=== PATIENT | female | born 1980 | race Caucasian/White ===

== ENCOUNTER 2022-10-21 08:27 | Outpatient (OUT) | payer BC, SELFPAY ==
--- NOTE | 2022-10-21 08:35 | MM_ITS ---
Patient: JESSICA YU Exam Date: 10/21/2022 : 1980 Gender:F Ordering : DR ROME RAZA Admission #: [id number] Family : DR Adkins Omar . Order #: [id number] CLICK HERE TO VIEW EXAM RADIOLOGY REPORT PROCEDURE: MM TOMOSYNTHESIS SCREENING BI COMPARISON: MG MAMM SCREEN 3D SERA CAD, 07/21/2020. MG MAMM SCREEN 3D SERA CAD, 07/29/2021. INDICATIONS: Screening Calculator Name NCI Breast Cancer Risk Assessment Tool 5 Year Breast Cancer Risk 1.40% Lifetime Breast Cancer Risk 17.90% Personal Breast Cancer No Personal Ovarian Cancer No Treatments None Family Cancers Mother with breast cancer at age 54. LOCATION: [facility] BREAST COMPOSITION: Extremely dense, which lowers the sensitivity of mammography. FINDINGS: DIAGNOSTIC CATEGORY 1--NEGATIVE. NO CHANGE FROM COMPARISON ASSESSMENT. Scattered benign-appearing nodules are present. Scattered benign-appearing calcifications are present. Scattered benign-appearing lymph nodes are present. RIGHT BREAST: No significant suspicious finding. LEFT BREAST: No significant suspicious finding. RECOMMENDATIONS: ROUTINE MAMMOGRAM AND CLINICAL EVALUATION IN 12 MONTHS. PLEASE NOTE: A NORMAL MAMMOGRAM DOES NOT EXCLUDE THE POSSIBILITY OF BREAST CANCER. A CLINICALLY SUSPICIOUS PALPABLE LUMP SHOULD BE BIOPSIED. Dictated by: Ron Andrea MD on 10/21/2022 at 09:36 Approved by: Ron Andrea MD on 10/21/2022 at 09:39
== END 2022-10-21 08:28 | disposition home or self-care (01) ==
LOC: MAMMO 08:27
PROVIDERS: PCP Family Medicine; Visit Provider Family Medicine
DX: Z12.31 Encounter for screening mammogram for malignant neoplasm of breast (principal); Z80.3 Family history of malignant neoplasm of breast
CPT/HCPCS: 77063; 77067

== ENCOUNTER 2022-12-13 20:40 | Outpatient (REF) | payer BC, SELFPAY ==
[2022-12-20 10:12] LABS: Age Gdln ACOG Testing Note (.); HPV Aptima Negative (Negative); IGP, Aptima HPV, rfx 16/18,45 Note (.)
== END 2022-12-13 20:41 | disposition home or self-care (01) ==
LOC: LAB 20:40
PROVIDERS: PCP Family Medicine; Visit Provider Obstetrics & Gynecology
DX: Z12.4 Encounter for screening for malignant neoplasm of cervix (principal)
CPT/HCPCS: G0145

== ENCOUNTER 2023-04-26 10:52 | Outpatient (OUT) | payer BC, SELFPAY ==
--- NOTE | 2023-04-26 10:55 | US_ITS ---
The [address] [address] Patient Name: JESSICA YU MRN: [id number] date: 1980 Sex: F Assigned Patient [facility] Current [facility] Accession/Order Number: [id number] Exam Date: 04/26/2023 10:55 Report Date: 04/26/2023 11:49 At the request of: MICHAEL CAO Procedure: US pelvis w/ transvaginal EXAM: US pelvis w/ transvaginal HISTORY: LEFT SIDED PELVIC PAIN COMPARISON: None. TECHNIQUE: Real-time transabdominal and transvaginal imaging of the pelvis. Findings: The uterus is surgically absent. The right ovary is not visualized due to overlying bowel gas. The left ovary measures 6.7 x 5.1 x 5.0 cm. Within the left ovary is a complex cystic lesion measuring 5.3 x 4.4 x 4.1 cm. Blood flow is identified to the left ovary. No adnexal mass or free pelvic fluid. US/US pelvis w/ transvaginal IMPRESSION: 1. Probable hemorrhagic cyst in the left ovary as described above. Consensus guidelines for hemorrhagic cysts: hemorrhagic cysts measuring less than 5cm in a premenopausal woman require no follow-up. Hemorrhagic cysts measuring greater than 5cm in a premenopausal woman should be followed with ultrasound in 6-12 weeks to ensure resolution. Hemorrhagic cysts in post menopausal women of any age should have either short term follow-up with ultrasound in 6-12 weeks or surgical evaluation. Electronically authenticated by: SAIMA JONES Date: 04/26/2023 11:49
== END 2023-04-26 10:53 | disposition home or self-care (01) ==
LOC: NOMS 10:53
PROVIDERS: PCP Family Medicine; Visit Provider Obstetrics & Gynecology
DX: R10.2 Pelvic and perineal pain (principal); N83.202 Unspecified ovarian cyst, left side
CPT/HCPCS: 76830; 76856

== ENCOUNTER 2023-06-07 08:22 | Outpatient (OUT) | payer BC, SELFPAY ==
--- NOTE | 2023-06-07 08:27 | US_ITS ---
The [address] [address] Patient Name: JESSICA YU MRN: [id number] date: 1980 Sex: F Assigned Patient Location: [facility] Current Patient Location: [facility] Accession/Order Number: [id number] Exam Date: 06/07/2023 08:27 Report Date: 06/07/2023 10:26 At the request of: MICHAEL CAO Procedure: US pelvis w/ transvaginal EXAM: Pelvic ultrasound HISTORY: . PELVIC PAIN . COMPARISON: 04/26/2023 TECHNIQUE: Transabdominal and transvaginal scanning was performed FINDINGS: Uterus is absent. Right ovary measures 3.4 x 2.7 x 2.4 cm. Color-flow is noted. Follicles are noted. Left ovary measures 3 x 2.5 x 2.2 cm. Color-flow is noted. Follicles are noted. No masses are noted. No fluid is noted in the cul-de-sac. US/US pelvis w/ transvaginal IMPRESSION: 1 the uterus is absent. 2. Normal-appearing ovaries with no masses. The previously noted cyst involving the left ovary has resolved. Electronically authenticated by: FRANCOIS LOPEZ Date: 06/07/2023 10:26
--- OUTSIDE RECORDS SUMMARY | 2023-06-07 08:27 | XMS_ITS | CCD ---
Author Organization [facility] Care Team Providers Care Negotiator Sales Name Role Phone Yasmin De La Cruz Unavailable BROCK, DR KRISTA Cooper Admitting Unavailable KUNTiffanie, DR KRISTA Cooper Attending Unavailable KUNS, DR KRISTA Cooper Primary Care Unavailable SWISHER, DR FRANCOIS Pearson Consulting Unavailable KUNTiffanie, DR KRISTA Cooper Consulting Unavailable KILEY, DR RODRIGUEZ Admitting Unavailable KILEY, DR RODRIGUEZ Attending Unavailable KUNS, DR KRISTA Cooper Primary Care Unavailable SWISHER, DR FRANCOIS Pearson Consulting Unavailable KILEY, DR RODRIGUEZ Consulting Unavailable KUNS, DR KRISTA Cooper Primary Care Unavailable MISC, DR PRESSLEY Admitting Unavailable MISC, DR PRESSLEY Attending Unavailable MISC, DR PRESSLEY Consulting Unavailable KILEY, DR RODRIGUEZ Admitting Unavailable KILEY, DR RODRIGUEZ Attending Unavailable FURLONG, DR RYAN cMdaniel Primary Care Unavailable SABINA HORNE Consulting Unavailable KILEY, DR RODRIGUEZ Admitting Unavailable KILEY, DR RODRIGUEZ Attending Unavailable FURLOKAREN, DR RYAN Mcdaniel Primary Care Unavailable KILEY, DR RODRIGUEZ Consulting Unavailable KILEY, DR RODRIGUEZ Admitting Unavailable KILEY, DR RODRIGUEZ Attending Unavailable FURLONG, DR RYAN Mcdaniel Primary Care Unavailable KILEY, DR RODRIGUEZ Consulting Unavailable IKLEY, DR RODRIGUEZ Procedure Practitioner Unavailab KAMRYN Aguirre Consulting Unavailable ANTONIO STANLEY Consulting Unavailable Agata James Unavailable Ryan Armijo DO Primary Care Provider [phone] Allergies Allergy Classification Reported Allergen(s) Allergy Type Date of Onset Reaction(s) Facility (3 sources) gabapentin Drug Allergy 2 Other (See Comments) [facility] (1 source) gabapentin Drug Allergy [facility] Repository Medications Current Medications Medication Drug Class(es) Dates Sig (Normalized) Sig (Original) acyclovir 50 mg/ml / hydrocortisone 10 mg/ml topical cream (3 sources) Herpesvirus Nucleoside Analog DNA Polymerase Inhibitor, Corticosteroid, Herpes Simplex Virus Nucleoside Analog DNA Polymerase Inhibitor, Herpes Zoster Virus Nucleoside Analog DNA Polymerase Inhibitor Start: 07-26-2022 End: 05-21-2023 acyclovir-hydroco rtisone (XERESE) 5-1 % cream Apply topically 5 (five) times a day for 5 days. 5 g 1 05/16/2023 05/21/2023 Active End: 05-16-2023 acyclovir-hydrocortisone (XE RESE) 5-1 % cream Xerese 5 %-1 % topical cream 0 05/16/2023 Discontinued (Reorder) cholecalciferol 0.125 mg oral capsule (1 source) Vitamin D Start: 02-25-2022 take 1 capsule by mouth in the morning cholecalciferol, vitamin D3, (VITAMIN D3) 5,000 units capsule Take 1 capsule (5,000 Units total) by mouth in the morning. 100 capsule 3 02/25/2022 Active cyclobenzaprine hydrochloride 10 mg oral tablet (1 source) Muscle Relaxant take 1 tablet by mouth three times daily cyclobenzaprine (FLEXERIL) 10 mg tablet cyclobenzaprine 10 mg tablet TAKE 1 TABLET BY MOUTH THREE TIMES DAILY 0 Active dextromethorphan hydrobromide 1.5 mg/ml / pyrilamine maleate 1.5 mg/ml oral solution (1 source) Uncompetitive H-npyqgy-J-asparta te Receptor Antagonist, Sigma-1 Agonist Start: 04-29-2023 take 10 mL by mouth every eight hours Shirley DM 7.5-7.5 MG/5ML 10 mL Orally every 8 hours for 5 days Apr, Active diclofenac sodium 75 mg delayed release oral tablet (1 source) Nonsteroidal Anti-inflammatory Drug take 1 tablet by mouth twice daily diclofenac (VOLTAREN) 75 mg EC tablet diclofenac sodium 75 mg tablet,delayed release TAKE 1 TABLET BY MOUTH TWICE DAILY 0 Active fluticasone propionate 0.5 mg/ml topical cream (1 source) Corticosteroid fluticasone propionate (CUTIVATE) 0.05 % cream fluticasone propionate 0.05 % topical cream APPLY TO THE AFFECTED AREA(S) on back and chest at NIGHT FOR 1 WEEK 0 Active icosapent ethyl 1000 mg oral capsule (1 source) Start: 07-27-2022 take 2 capsules by mouth at bedtime icosapent ethyL (VASCEPA) 1 gram capsule Take 2 capsules (2 g total) by mouth in the morning and 2 capsules (2 g total) before bedtime. 360 capsule 3 07/27/2022 Active LORazepam 0.5 mg oral tablet (3 sources) Benzodiazepine take 1 tablet by mouth once daily LORazepam (ATIVAN) 0.5 mg tablet lorazepam 0.5 mg tablet TAKE 1 TABLET BY MOUTH DAILY 0 Active methylPREDNISolone 4 mg oral tablet (3 sources) Corticosteroid Start: 09-04-2021 methylPREDNISolone 4 MG as directed Orally for 6 Apr, Active naratriptan 2.5 mg oral tablet (3 sources) Serotonin-1b and Serotonin-1d Receptor Agonist Start: 02-15-2022 naratriptan (AMERGE) 2.5 mg tablet ondansetron 4 mg disintegrating oral tablet (1 source) Serotonin-3 Receptor Antagonist Start: 02-15-2022 ondansetron ODT (ZOFRAN ODT) 4 mg disintegrating tablet rosuvastatin calcium 10 mg oral tablet (3 sources) HMG-CoA Reductase Inhibitor Start: 09-09-2022 rosuvastatin (CRESTOR) 10 mg tablet TAKE 1 TABLET IN THE MORNING 90 tablet 3 09/09/2022 Active Rosuvastatin Ruy cium Active valACYclovir 1000 mg oral tablet (2 sources) Herpesvirus Nucleoside Analog DNA Polymerase Inhibitor, Herpes Simplex Virus Nucleoside Analog DNA Polymerase Inhibitor, Herpes Zoster Virus Nucleoside Analog DNA Polymerase Inhibitor Start: 07-29-2022 take 2 tablets by mouth in the morning, then take 2 tablets by mouth at bedtime valACYclovir (VALTREX) 1000 mg tablet Take 2 tablets (2,000 mg total) by mouth in the morning and 2 tablets (2,000 mg total) before bedtime. 4 tablet 5 07/29/2022 Active valACYclovir (VA LTREX) 1000 mg tablet valacyclovir 1 gram tablet 0 Active Vitamin D (2 sources) Vitamin D Active Completed/Discontinued Medications Medication Drug Class(es) Dates Sig (Normalized) Sig (Original) acetaminophen 300 mg / butalbital 50 mg / caffeine 40 mg oral capsule (2 sources) Barbiturate, Central Nervous System Stimulant, Methylxanthine take 1 capsule by mouth every four hours Fioricet 50-300-40 MG 1 capsule as needed Orally every 4 hrs Not-Taking/PRN Imitrex STATdose System 6 MG/0.5ML (2 sources) Start: 11-19-2013 Imitrex STATdose System 6 MG/0.5ML as directed Subcutaneous 1 time for 1 time Nov, Not-Taking/PRN Start: 11-19-2013 Imitrex STATdo se System 6 MG/0.5ML as directed Subcutaneous 1 time for 1 time Nov, Not-Taking Ketorolac (6 sources) Nonsteroidal Anti-inflammatory Drug, Cyclooxygenase Inhibitor Start: 11-06-2015 Toradol p er 15 mg Oct, 60 mg Start: 11-16-2013 Toradol 60 mg 1 intramuscularly 1 time dose for 1 dose(s) Oct, Not-Taking/PRN Start: 11-16-2013 Toradol 60 mg 1 intramuscularly 1 time dose for 1 dose(s) Oct, Not-Taking Start: 11-16-2013 Toradol per 15 mg Oct, 60 mg Promethazine (6 sources) Phenothiazine Start: 11-06-2015 Phenergan 25mg 25mg as dircted by mouth every 8 hours for nausea Oct, Not-Taking/PRN Start: 11-06-2015 Phenergan 25mg 25mg as dircted by mouth every 8 hours for nausea Oct, Not-Taking Start: 11-06-2015 PROMETHAZINE ( Phenergan) up to 50 mg Oct, 25 mg Start: 11-16-2013 PROMETHAZINE ( Phenergan) up to 50 mg Oct, 25 mg topiramate (2 sources) Topamax Not-Taki ng/PRN Topamax Not-Taki ng varenicline 1 mg oral tablet (2 sources) Partial Cholinergic Nicotinic Agonist take 1 tablet by mouth every twelve hours Chantix 1 MG 1 tablet Orally Twice a day Not-Taking/PRN Problems Active Problems Problem Classification Problem Date Documented Da te Episodic/Chronic Anxiety disorders (2 sources) Anxiety disorder, unspecified; Translations: [Anxiety] Onset: 11-04-2021 02-25-2022 Chronic Disorders of lipid metabolism (2 sources) Mixed hyperlipidemia; Translations: [Mixed hyperlipidemia] Onset: 06-13-2021 02-25-2022 Chronic Headache; including migraine (3 sources) Migraine; Translations: [Migraine] Onset: 02-25-2022 02-25-2022 Chronic Menstrual disorders (5 sources) Excessive and frequent menstruation with regular cycle; Translations: [Dysmenorrhea, unspecified] Onset: 10-27-2021 Chronic Nausea and vomiting (2 sources) Vomiting; Translations: [Vomiting] Episodic Nutritional deficiencies (1 source) Vitamin D deficiency; Translations: [Vitamin D deficiency, unspecified] Onset: 05-07-2019 02-25-2022 Chronic Other female genital disorders (1 source) Unspecified dyspareunia; Translations: [UNSPECIFIED DYSPAREUNIA] Onset: 11-04-2021 Chronic Other lower respiratory disease (2 sources) Cough; Translations: [Cough] Episodic Other upper respiratory infections (2 sources) Acute laryngitis; Translations: [Acute upper respiratory infection, unspecified] Onset: 09-04-2021 Resolved: 09-04-2021 Episodic Substance-related disorders (1 source) Nicotine dependence, cigarettes, uncomplicated; Translations: [NICOTINE DEPEND CIGARETTES UNCOMP] Onset: 11-04-2021 Chronic Unclassified (1 source) CONTACT W/AND (SUSP) EXPOS COVID-19; Translations: [CONTACT W/AND (SUSP) EXPOS COVID-19] Onset: 10-27-2021 Past or Other Problems Problem Classification Problem Date Documented Da te Episodic/Chronic Allergic reactions (4 sources) Allergic contact dermatitis, unspecified cause; Translations: [ALLERG CONTACT DERMATITS UNS CAUSE] Onset: 08-27-2021 Episodic Mood disorders (1 source) Depressive disorder; Translations: [Depressive disorder] Onset: 02-25-2022 Resolved: 07-26-2022 07-26-2022 Chronic Mood disorders (1 source) Mood disorders Onset: 07-26-2022 07-26-2022 Other aftercare (1 source) Other intermediate (current) drug therapy; Translations: [OTH SCREEN WRITER CURRENT DRUG THERAPY] Onset: 11-04-2021 Episodic Other screening for suspected conditions (not mental disorders or infectious disease) (4 sources) Encounter for screening mammogram for malignant neoplasm of breast; Translations: [ENC SCR MAMMO MALIG NEOPLASM BREAST] Onset: 07-29-2021 Episodic Ovarian cyst (1 source) Cyst of ovary; Translations: [Unspecified ovarian cyst, unspecified side] Onset: 02-25-2022 02-25-2022 Episodic Residual codes; unclassified (1 source) Family history of malignant neoplasm of breast; Translations: [FAMILY HX MALIG NEOPLASM OF BREAST] Onset: 08-03-2021 Episodic Unclassified (1 source) Cough R05.9 Onset: 09-04-2021 Resolved: 09-04-2021 Viral infection (1 source) Herpes labialis; Translations: [Herpesviral vesicular dermatitis] Onset: 11-24-2017 02-25-2022 Episodic Viral infection (1 source) COVID-19 Onset: 09-04-2021 Resolved: 09-04-2021 Results Test Name Value Interpretation Reference Range Facility BUNon 10-30-2021 Urea nitrogen [Mass/Vol] 7.0 mg/dL Normal 7.0-18.0 [facility] Comment on above: Performed By: #### C LEONA, BUN #### [facility] [address] [place] [address] Dr. Sin Watkins CBC AUTO DIFFon 10-30-2021 BASO # 0.0 103/ul Normal 0.0-0.1 [facility] Comment on above: Performed By: #### C BC #### [facility] [address] [place] [address] Dr. Sin Watkins Basophils/100 WBC (Bld) 0.1 % Critically low 0.2-2.0 [facility] Comment on above: Performed By: #### C BC #### [facility] [address] [place] [address] Dr. Sin Watkins EO # 0.0 103/ul Normal 0.0-0.7 [facility] Comment on above: Performed By: #### C BC #### [facility] [address] [place] [address] Dr. Sin Watkins Eosinophils/100 WBC (Bld) 0.0 % Critically low 0.9-7.0 [facility] Comment on above: Performed By: #### C BC #### [facility] [address] [place] [address] Dr. Sin Watkins Erythrocyte distribution width (RBC) [Ratio] 12.2 % Normal 11.0-15.0 [facility] Comment on above: Performed By: #### C BC #### [facility] [address] [place] [address] Dr. Sin Watkins Hematocrit (Bld) [Volume fraction] 39.3 % Normal 36.0-48.0 [facility] Comment on above: Performed By: #### C BC #### [facility] [address] [place] [address] Dr. Sin Watkins Hemoglobin (Bld) [Mass/Vol] 13.0 g/dL Normal 12.0-16.0 [facility] Comment on above: Performed By: #### C BC #### [facility] [address] [place] [address] Dr. Sin Watkins IG # 0.08 10e3/ul Critically high 0.00-0.03 [facility] Comment on above: Performed By: #### C BC #### [facility] [address] [place] [address] Dr. Sin Watkins IG % 0.5 % Normal 0.0-0.5 [facility] Comment on above: Performed By: #### C BC #### [facility] [address] [place] [address] Dr. Sin Watkins LYMPH # 1.7 103/ul Normal 1.2-3.8 [facility] Comment on above: Performed By: #### C BC #### [facility] [address] [place] [address] Dr. Sin Watkins Lymphocytes/100 WBC (Bld) 10.3 % Critically low 20.5-60.0 [facility] Comment on above: Performed By: #### C BC #### [facility] [address] [place] [address] Dr. Sin Watkins MANUAL DIFF REQ NO Normal [facility] Comment on above: Performed By: #### C BC #### [facility] [address] [place] [address] Dr. Sin Watkins MCH (RBC) [Entitic mass] 31.3 pg Normal 26.7-34.0 [facility] Comment on above: Performed By: #### C BC #### [facility] [address] [place] [address] Dr. Sin Watkins MCHC (RBC) [Mass/Vol] 33.1 g/dL Normal 29.9-35.2 [facility] Comment on above: Performed By: #### C BC #### [facility] [address] [address] [address] Sin Watkins MCV (RBC) [Entitic vol] 94.7 fL Normal 81.0-99.0 [facility] Comment on above: Performed By: #### C BC #### [facility] [address] [place] [address] Dr. Sin aWtkins MONO # 0.7 103/ul Normal 0.3-0.8 [facility] Comment on above: Performed By: #### C BC #### [facility] [address] [place] [address] Dr. Sin Watkins Monocytes/100 WBC (Bld) 4.3 % Normal 1.7-12.0 [facility] Comment on above: Performed By: #### C BC #### [facility] [address] [place] [address] Dr. Sin Watkins NEUT # 14.4 103/ul Critically high 1.4-6.5 [facility] Comment on above: Performed By: #### C BC #### [facility] [address] [place] [address] Dr. Sin Watkins Neutrophils/100 WBC (Bld) 84.8 % Critically high 43.0-75.0 [facility] Comment on above: Performed By: #### C BC #### [facility] [address] [place] [address] Dr. Sin Watkins Platelet mean volume (Bld) [Entitic vol] 11.6 fL Normal 9.5-13.5 [facility] Comment on above: Performed By: #### C BC #### [facility] [address] [place] [address] Dr. Sin Watkins PLT 182 103/ul Normal 150-450 [facility] Comment on above: Performed By: #### C BC #### [facility] [address] [place] [address] Dr. Sin Watkins RBC 4.15 106/ul Critically low 4.20-5.40 [facility] Comment on above: Performed By: #### C BC #### [facility] [address] [address] [address] Sin Watkins WBC 16.9 103/ul Critically high 4.0-11.0 [facility] Comment on above: Performed By: #### C BC #### [facility] [address] [place] [address] Dr. Sin Watkins CREATININEon 10-30-2021 Creatinine [Mass/Vol] 0.72 mg/dL Normal 0.55-1.02 [facility] Comment on above: Performed By: #### C LEONA, BUN #### [facility] [address] [place] [address] Dr. Sin Watkins EGFR-AF MOSOTHO >60 Normal >=60 [facility] Comment on above: Performed By: #### C LEONA BUN #### [facility] [address] [place] [address] Dr. Sin Watkins EGFR-NON AF MOSOTHO >60 Normal >=60 [facility] Comment on above: Performed By: #### C LEONA, BUN #### [facility] [address] [place] [address] Dr. Sin Watkins CBC AUTO DIFFon 10-29-2021 BASO # 0.0 103/ul Normal 0.0-0.1 [facility] Comment on above: Performed By: #### C BC ####[facility] [address] [address]Dr. Sin Watkins Basophils/100 WBC (Bld) 0.3 % Normal 0.2-2.0 [facility] Comment on above: Performed By: #### C BC ####[facility] [address] [address]Dr. Sin Watkins EO # 0.1 103/ul Normal 0.0-0.7 [facility] Comment on above: Performed By: #### C BC ####[facility] [address] [place], [place] [address]Dr. Sin Watkins Eosinophils/100 WBC (Bld) 1.5 % Normal 0.9-7.0 [facility] Comment on above: Performed By: #### C BC ####[facility] [address] [place], [place] [address]Dr. Sin Watkins Erythrocyte distribution width (RBC) [Ratio] 12.2 % Normal 11.0-15.0 [facility] Comment on above: Performed By: #### C BC ####[facility] [address] [place], [place] [address]Dr. Sin Watkins Hematocrit (Bld) [Volume fraction] 44.8 % Normal 36.0-48.0 [facility] Comment on above: Performed By: #### C BC ####[facility] [address] [place], [place] [address]Dr. Sin Watkins Hemoglobin (Bld) [Mass/Vol] 15.5 g/dL Normal 12.0-16.0 [facility] Comment on above: Performed By: #### C BC ####[facility] [address] [place], [place] [address]Dr. Sin Roland IG # 0.02 10e3/ul Normal 0.00-0.03 [facility] Comment on above: Performed By: #### C BC ####[facility] [address] [place], [place] [address]Dr. Monairasema Watkins IG % 0.3 % Normal 0.0-0.5 [facility] Comment on above: Performed By: #### C BC ####[facility] [address] [place], [place] [address]DrMateo Watkins LYMPH # 3.1 103/ul Normal 1.2-3.8 [facility] Comment on above: Performed By: #### C BC ####[facility] [address] [place], [place] [address]Dr. Sin Watkins Lymphocytes/100 WBC (Bld) 41.8 % Normal 20.5-60.0 [facility] Comment on above: Performed By: #### C BC ####[facility] [address] [address]DrMateo Watkins MANUAL DIFF REQ NO Normal [facility] Comment on above: Performed By: #### C BC ####[facility] [address] [address]DrMateo Watkins MCH (RBC) [Entitic mass] 31.6 pg Normal 26.7-34.0 [facility] Comment on above: Performed By: #### C BC ####[facility] [address] [place], [place] [address]DrMateo Watkins MCHC (RBC) [Mass/Vol] 34.6 g/dL Normal 29.9-35.2 [facility] Comment on above: Performed By: #### C BC ####[facility] [address] [place], [place] [address]DrMateo Watkins MCV (RBC) [Entitic vol] 91.4 fL Normal 81.0-99.0 [facility] Comment on above: Performed By: #### C BC ####[facility] [address] [place], [place] [address]DrMateo Watkins MONO # 0.5 103/ul Normal 0.3-0.8 [facility] Comment on above: Performed By: #### C BC ####[facility] [address] [place], [place] [address]DrMateo Watkins Monocytes/100 WBC (Bld) 7.3 % Normal 1.7-12.0 [facility] Comment on above: Performed By: #### C BC ####[facility] [address] [place], [place] [address]DrMateo Watkins NEUT # 3.6 103/ul Normal 1.4-6.5 [facility] Comment on above: Performed By: #### C BC ####[facility] [address] [place], [place] [address]Dr. Sin Watkins Neutrophils/100 WBC (Bld) 48.8 % Normal 43.0-75.0 [facility] Comment on above: Performed By: #### C BC ####[facility] [address] [id number] Watkins Platelet mean volume (Bld) [Entitic vol] 10.7 fL Normal 9.5-13.5 [facility] Comment on above: Performed By: #### C BC ####[facility] [address] [place], [place] [address]CkMateo Watkins PLT 192 103/ul Normal 150-450 [facility] Comment on above: Performed By: #### C BC ####[facility] [address] [id number]. Sin Watkins RBC 4.90 106/ul Normal 4.20-5.40 [facility] Comment on above: Performed By: #### C BC ####[facility] [address] [id number] Watkins WBC 7.4 103/ul Normal 4.0-11.0 [facility] Comment on above: Performed By: #### C BC ####[facility] [address] [id number]. Sin Watkins PREG HCG QUALon 10-29-2021 , QUAL Negative Normal NEGATIVE [facility] Comment on above: Performed By: #### P REG #### [facility] [address] [place], [place] [address] Dr. Sin Watkins Covid-19 PCR (CVDTB)on SARS-CoV-2 (COVID-19) RNA AVTAR+probe Ql (Unsp spec) Not detected Normal NOT DETECTED [facility] Comment on above: Result Comment: This test is not yet approved or cleared by the [place] FDA. When there are no FDA-approved or cleared tests available, and other criteria are met, FDA can make tests available under an emergency access mechanism called an Emergency Use Authorization (EUA). The EUA for this test is supported by the [employer] of Health and Human Service's (HHS's) declaration that circumstances exist to justify the emergency use of in vitro diagnostics for the detection and/or diagnosis of the virus that causes COVID-19. This EUA will remain in effect (meaning this test can be used) for the duration of the COVID-19 declaration justifying emergency of IVDs, unless it is terminated or revoked by FDA (after which the test may no longer be used). When diagnostic testing is negative, the possibility of a false negative should be considered in the context of a patient's recent exposures and the presence of clinical signs and symptoms consistent with SARS-CoV-2. Performed By: #### C VDTB ####[facility] [address] [place], [place] [address]Iw. Sin Watkins TYPE AND SCREENon 10-26-2021 TYPE AND SCREEN Negative Normal [facility] Comment on above: Performed By: #### T NS ####[facility] [address] [place], [place] [address]At. Sin Watkins DRUG TOX MONITORING 5 W/CONF , URINEon 09-29-2021 Amphetamines Negative Normal <500 [facility] Comment on above: Performed By: #### 9 1485 #### [facility] [address] [place] [address] [employer]: Francis Saunders MD Benzodiazepines Negative Normal <100 [facility] Comment on above: Performed By: #### 9 1485 #### [facility] [place] [address] [employer]: Francis Saunders MD Buprenorphine Negative Normal <5 [facility] Comment on above: Performed By: #### 9 1485 #### [facility] [place] [address] [employer]: Francis Saunders MD Cocaine Metabolite Negative Normal <150 [facility] Comment on above: Performed By: #### 9 1485 #### [facility] [place] [address] [employer]: Francis Saunders MD COMMENT Normal [facility] Comment on above: Result Comment: See Note 1 Note 1 This drug testing is for medical treatment only. Analysis was performed as non-forensic testing and these results should be used only by healthcare providers to render diagnosis or treatment, or to monitor progress of medical conditions. For assistance with interpreting these drug results, please contact a [facility] T[facility]ology Specialist: [phone] ( ), M-F, 8am-6pm EST. Performed By: #### 9 1485 #### [facility] [place] [address] [place] , [address] [place] [address] [employer]: Francis Saunders MD Heroin Metabolite Negative Normal <10 [facility] Comment on above: Performed By: #### 9 1485 #### [facility] of [address] , [address] [place] [address] [employer]: Francis Saunders MD Marijuana Metabolite 20 Negative Normal <20 [facility] Comment on above: Performed By: #### 9 1485 #### [facility] [place] [address] [place] , [address] [place] [address] [employer]: Francis Saunders MD Methadone Metabolite Negative Normal <100 [facility] Comment on above: Performed By: #### 9 1485 #### [facility] [place] [address] [place] , [address] [place] [address] [employer]: Francis Saunders MD Opiates Negative Normal <100 [facility] Comment on above: Performed By: #### 9 1485 #### [facility] [place] [address] [place] , [address] [place] [address] [employer]: Francis Saunders MD Oxycodone Negative Normal <100 [facility] Comment on above: Performed By: #### 9 1485 #### [facility] [place] [address] [place] , [address] [place] [address] [employer]: Francis Saunders MD Phencyclidine Negative Normal <25 [facility] Comment on above: Performed By: #### 9 1485 #### [facility] [place] [address] [place] , [address] [place] [address] [employer]: Francis Saunders MD SARS-CoV-2 (COVID-19) RNA NA A+probe Ql (Resp)on 09-04-2021 SARS-CoV-2 (COVID-19) RNA AVTAR+probe Ql (Unsp spec) Positive [facility] Other ANDIE by IFAon 08-30-2021 Antinuclear Antibodies, IFA Negative Normal [facility] Comment on above: Result Comment: Nega tive <1:80 Borderline 1:80 Positive >1:80 ICAP nomenclature: AC-0 For more information about Hep-2 cell patterns use ANApatterns.org, the official website for the International Consensus on Antinuclear Antibody (ANDIE) Patterns (ICAP). Performed By: #### A NAIFA ####[facility] [address] [place], [place] [address]Dr. Sin Watkins CBC AUTO DIFFon 08-27-2021 BASO # 0.0 103/ul Normal 0.0-0.1 [facility] Comment on above: Performed By: #### C BC ####[facility] [address] [place], [place] [address]Dr. Sin Watkins Basophils/100 WBC (Bld) 0.1 % Critically low 0.2-2.0 [facility] Comment on above: Performed By: #### C BC ####[facility] [address] [place], [place] [address]Dr. Sin Watkins EO # 0.1 103/ul Normal 0.0-0.7 [facility] Comment on above: Performed By: #### C BC ####[facility] [address] [place], [place] [address]DrMateo Watkins Eosinophils/100 WBC (Bld) 1.2 % Normal 0.9-7.0 [facility] Comment on above: Performed By: #### C BC ####[facility] [address] [place], [place] [address]DrMateo Watkins Erythrocyte distribution width (RBC) [Ratio] 12.4 % Normal 11.0-15.0 [facility] Comment on above: Performed By: #### C BC ####[facility] [address] [place], [place] [address]Dr. Sin Watkins Hematocrit (Bld) [Volume fraction] 46.1 % Normal 36.0-48.0 [facility] Comment on above: Performed By: #### C BC ####[facility] [address] [place] [address]Dr. Sin Roland Hemoglobin (Bld) [Mass/Vol] 15.6 g/dL Normal 12.0-16.0 [facility] Comment on above: Performed By: #### C BC ####[facility] [address] [place], [place] [address]Dr. Sin Watkins IG # 0.02 10e3/ul Normal 0.00-0.03 [facility] Comment on above: Performed By: #### C BC ####[facility] [address] [place], [place] [address]Dr. Sin Watkins IG % 0.3 % Normal 0.0-0.5 [facility] Comment on above: Performed By: #### C BC ####[facility] [address] [place], [place] [address]Dr. Sin Watkins LYMPH # 2.1 103/ul Normal 1.2-3.8 [facility] Comment on above: Performed By: #### C BC ####[facility] [address] [place], [place] [address]Dr. Sin Watkins Lymphocytes/100 WBC (Bld) 28.7 % Normal 20.5-60.0 [facility] Comment on above: Performed By: #### C BC ####[facility] [address] [place], [place] [address]Dr. Sin Watkins MANUAL DIFF REQ NO Normal [facility] Comment on above: Performed By: #### C BC ####[facility] [address] [place], [place] [address]Dr. Sin Watkins MCH (RBC) [Entitic mass] 31.5 pg Normal 26.7-34.0 [facility] Comment on above: Performed By: #### C BC ####[facility] [address] [place], [place] [address]Dr. Sin Watkins MCHC (RBC) [Mass/Vol] 33.8 g/dL Normal 29.9-35.2 [facility] Comment on above: Performed By: #### C BC ####[facility] [address] [place] [address]DrMateo Sin Watkins MCV (RBC) [Entitic vol] 92.9 fL Normal 81.0-99.0 [facility] Comment on above: Performed By: #### C BC ####[facility] [address] [place], [place] [address]DrMateo Dunnirasema Roland MONO # 0.4 103/ul Normal 0.3-0.8 [facility] Comment on above: Performed By: #### C BC ####[facility] [address] [place], [place] [address]DrMateo Watkins Monocytes/100 WBC (Bld) 5.7 % Normal 1.7-12.0 [facility] Comment on above: Performed By: #### C BC ####[facility] [address] [place], [place] [address]Dr. Monairasema Roland NEUT # 4.8 103/ul Normal 1.4-6.5 [facility] Comment on above: Performed By: #### C BC ####[facility] [address] [place], [place] [address]DrMateo Monairasema Watkins Neutrophils/100 WBC (Bld) 64.0 % Normal 43.0-75.0 [facility] Comment on above: Performed By: #### C BC ####[facility] [address] [place], [place] [address]DrMateo Monairasema Watkins Platelet mean volume (Bld) [Entitic vol] 11.4 fL Normal 9.5-13.5 [facility] Comment on above: Performed By: #### C BC ####[facility] [address] [place], [place] [address]Dr. Sin Watkins PLT 224 103/ul Normal 150-450 [facility] Comment on above: Performed By: #### C BC ####[facility] [address] [place], [place] [address]Dr. Sin Watkins RBC 4.96 106/ul Normal 4.20-5.40 [facility] Comment on above: Performed By: #### C BC ####[facility] [address] [place] [address]Dr. Sin Watkins WBC 7.4 103/ul Normal 4.0-11.0 [facility] Comment on above: Performed By: #### C BC ####[facility] [address] [place] [address]Dr. Sin Watkins PREG QUANT HCGon 08-27-2021 HCG QUANT <1 Normal [facility] Comment on above: Performed By: #### P REGQNT, TSH #### [facility] [address] [place] [address] Dr. Sin Watkins HCG RANGE SEE BELOW Normal [facility] Comment on above: Result Comment: 5-50 0-1 WEEK 40-300 1-2 WEEKS 100-1,000 2-3 WEEKS 500-6,000 3-4 WEEKS 5,000-200,000 1-2 MONTHS 10,000-100,000 2-3 MONTHS 3,000-50,000 2ND TRIMESTER 1,000-50,000 3RD TRIMESTER Performed By: #### P REGQNT, TSH #### [facility] [address] [place] [address] Dr. Sin Watkins PROTIMEon 08-27-2021 INR Coag (PPP) [Relative time] 1.00 {INR} Normal [facility] Comment on above: Performed By: #### P T, PTT #### [facility] [address] [place] [address] Dr. Sin Watkins INR GUIDELINES SEE BELOW Normal [facility] Comment on above: Result Comment: MALATHI RED INR: 2.0 - 3.0 CONDITIONS NOT LISTED BELOW 2.5 - 3.5 FOR PROSTHETIC HEART VALVE REPLACEMENT 2.5 - 3.5 RECURRENT THROMBOSIS Performed By: #### P T, PTT #### [facility] [address] [place] [address] Dr. Sin Watkins PT Coag (PPP) [Time] 10.8 s Normal 9.0-11.6 [facility] Comment on above: Performed By: #### P T, PTT #### [facility] [address] [place] [address] Dr. Sin Watkins PTTon 08-27-2021 aPTT Coag (Bld) [Time] 28.8 s Normal 22.3-36.2 [facility] Comment on above: Performed By: #### P T, PTT #### [facility] [address] [place] [address] Dr. Sin Watkins TSHon 08-27-2021 TSH 0.760 uIU/mL Normal 0.358-3.740 [facility] Comment on above: Performed By: #### P REGQNT, TSH #### [facility] [address] [place] [address] Dr. Sin Watkins TSH RANGE SEE BELOW Normal [facility] Comment on above: Result Comment: <0.3 4 UIU/ml HYPERTHYROID 0.34-5.60 UIU/ml EUTHYROID >5.60 UIU/ml HYPOTHYROID Performed By: #### P REGQNT, TSH #### [facility] [address] [place] [address] Dr. Sin Watkins US PELVIS AND TRANSVAGon US PELVIS AND TRANSVAG EXAMINATION: US PELVIS AND TRANSVAG HISTORY: Excessive and frequent menstruation COMPARISON: No relevant comparison available. FINDINGS: Transabdominal and transvaginal images The uterus is prominent in size measuring 9.6 x 4.2 x 5.5 cm. No focal myometrial mass. The uterus is anteverted. The endometrium measures 10.0 mm, within normal limits for premenopausal patient. Trace amount of fluid in the endometrial cavity The right ovary measures 2.4 x 2.2 x 1.8 cm. Normal color and Doppler flow. Normal resistive index of 0.4. The left ovary measures 2.7 x 1.7 x 1.4 cm. Normal color and Doppler flow. Normal resistive index of 0.51 IMPRESSION: Mildly prominent uterus with no focal mass No ultrasound explanation of the patient's menorrhagia Electronically authenticated by: FRANCOIS HORTON Date: 2021-08-27 17:53 Normal [facility] MG MAMM SCREEN 3D SERA CADon 07-29-2021 MG MAMM SCREEN 3D SERA CAD Patient: JESSICA JONES Exam Date: 07/29/2021 : 1980 Gender:F Ordering : DR KRISTA GUTIÉRREZ Admission #: [id number] Family : Order #: [id number] CLICK HERE TO VIEW EXAM RADIOLOGY REPORT PROCEDURE: MAMMOGRAM SCREENING 3D BILATERAL CAD COMPARISON: MG MAMM SCREEN 3D SERA CAD, 07/21/2020. MG MAMM SCREEN SERA W CAD, 05/07/2019. INDICATIONS: Screening mammography Calculator Name NCI Breast Cancer Risk Assessment Tool 5 Year Breast Cancer Risk 1.30% Lifetime Breast Cancer Risk 18.00% Personal Breast Cancer No Personal Ovarian Cancer No Treatments None Family Cancers Mother with breast cancer at age 54. LOCATION: [facility] BREAST COMPOSITION: Extremely dense, which lowers the sensitivity of mammography. FINDINGS: DIAGNOSTIC CATEGORY 2--BENIGN FINDING. NO CHANGE FROM COMPARISON. Scattered benign-appearing nodules are present. Scattered benign-appearing calcifications are present. Scattered benign-appearing lymph nodes are present. RIGHT BREAST: No significant suspicious finding. LEFT BREAST: No significant suspicious finding. RECOMMENDATIONS: ROUTINE MAMMOGRAM AND CLINICAL EVALUATION IN 12 MONTHS. PLEASE NOTE: A NORMAL MAMMOGRAM DOES NOT EXCLUDE THE POSSIBILITY OF BREAST CANCER. A CLINICALLY SUSPICIOUS PALPABLE LUMP SHOULD BE BIOPSIED. Dictated by: Francois Horton MD on 07/30/2021 at 08:22 Approved by: Francois Horton MD on 07/30/2021 at 08:24 Normal [facility] COMPREHENSIVE METABOLIC PANE [place] 06-13-2021 Albumin [Mass/Vol] 4.4 g/dL Normal 3.6-5.1 [facility] Comment on above: Performed By: #### 1 7306, 49199, 6540, 47969 #### [facility] [address] [place] [address], [address] [place] [address] [employer]: Francis Saunders MD Albumin/Globulin [Mass ratio] 1.5 {ratio} Normal 1.0-2.5 [facility] Comment on above: Performed By: #### 1 7306, 57175, 0910, 09314 #### [facility] [address] [place] [address], [address] [place] [address] [employer]: Francis Saunders MD ALP [Catalytic activity/Vol] 82 U/L Normal 31-125 [facility] Comment on above: Performed By: #### 1 7306, 88566, 7600, 01296 #### [facility] [place] [address] [employer]: Francis Saunders MD ALT [Catalytic activity/Vol] 18 U/L Normal 6-29 [facility] Comment on above: Performed By: #### 1 7306, 31906, 7600, 27134 #### [facility] [place] [address] [employer]: Francis Saunders MD AST [Catalytic activity/Vol] 18 U/L Normal 10-30 [facility] Comment on above: Performed By: #### 1 7306, 44624, 7600, 35980 #### [facility] [place] [address] [employer]: Francis Saunders MD Bilirubin [Mass/Vol] 0.6 mg/dL Normal 0.2-1.2 [facility] Comment on above: Performed By: #### 1 7306, 71320, 7600, 08730 #### [facility] [place] [address] [employer]: Francis Saunders MD BUN/CREATININE RATIO NOT APPLICABLE Normal 6-22 [facility] Comment on above: Performed By: #### 1 7306, 92403, 7600, 40267 #### [facility] [place] [address] [employer]: Francis Saunders MD Calcium [Mass/Vol] 9.6 mg/dL Normal 8.6-10.2 [facility] Comment on above: Performed By: #### 1 7306, 64908, 7600, 06867 #### [facility] [place] [address] [employer]: Francis Saunders MD Chloride [Moles/Vol] 105 mmol/L Normal 98-110 [facility] Comment on above: Performed By: #### 1 7306, 38313, 0, 08866 #### [facility] [place] [address] [employer]: Francis Saunders MD CO2 [Moles/Vol] 25 mmol/L Normal 20-32 [facility] Comment on above: Performed By: #### 1 7306, 55077, 7600, 15030 #### [facility] [place] [address] [employer]: Francis Saunders MD Creatinine [Mass/Vol] 0.75 mg/dL Normal 0.50-1.10 [facility] Comment on above: Performed By: #### 1 7306, 11368, 0, 96248 #### [facility] [place] [address] [employer]: Francis Saunders MD eGFR NON-AFR. [place] 98 mL/min/1.73m2 Normal > OR = 60 [facility] Comment on above: Performed By: #### 1 7306, 72388, 0, 02969 #### [facility] [place] [address] [employer]: Francis Saunders MD GFR/1.73 sq M.predicted among blacks MDRD (S/P/Bld) [Vol rate/Area] 114 mL/min/{1.73_m2} Normal > OR = 60 [facility] Comment on above: Performed By: #### 1 7306, 87717, 0, 14232 #### [facility] [place] [address] [employer]: Francis Saunders MD Globulin (S) [Mass/Vol] 3.0 g/dL Normal 1.9-3.7 [facility] Comment on above: Performed By: #### 1 7306, 07566, 7600, 28869 #### [facility] [place] [address] [employer]: Francis Saunders MD Glucose [Mass/Vol] 103 mg/dL High 65-99 [facility] Comment on above: Result Comment: Fasting reference interval For someone without known diabetes, a glucose value between 100 and 125 mg/dL is consistent with prediabetes and should be confirmed with a follow-up test. Performed By: #### 1 7306, 35870, 7600, 46680 #### [facility] [place] [address] [employer]: Francis Saunders MD Potassium [Moles/Vol] 4.1 mmol/L Normal 3.5-5.3 [facility] Comment on above: Performed By: #### 1 7306, 30872, 7600, 90801 #### [facility] [place] [address] [employer]: Francis Saunders MD Protein [Mass/Vol] 7.4 g/dL Normal 6.1-8.1 [facility] Comment on above: Performed By: #### 1 7306, 36663, 7600, 49590 #### [facility] [place] [address] [employer]: Francis Saunders MD Sodium [Moles/Vol] 139 mmol/L Normal 135-146 [facility] Comment on above: Performed By: #### 1 7306, 40758, 7600, 53516 #### [facility] [place] [address] [employer]: Francis Saunders MD Urea nitrogen [Mass/Vol] 8 mg/dL Normal 7-25 [facility] Comment on above: Performed By: #### 1 7306, 14968, 7600, 67532 #### [facility] [place] [address] [employer]: Francis Saunders MD LIPID PANEL, [facility] - Cholesterol [Mass/Vol] 393 mg/dL High <200 [facility] Comment on above: Order Comment: FASTI NG:YES FASTING: YES Performed By: #### 1 7306, 11768, 7600, 59677 #### [facility] [address] [facility] [facility] [place], [address] [place] [address] [employer]: Francis Saunders MD Cholesterol in HDL [Mass/Vol] 39 mg/dL Low > OR = 50 [facility] Comment on above: Order Comment: FASTI NG:YES FASTING: YES Performed By: #### 1 7306, 17220, 7600, 45758 #### [facility] [address], [address] [employer]: Francis Saunders MD Cholesterol in LDL [Mass/Vol] 290 mg/dL High [facility] Comment on above: Order Comment: FASTI NG:YES FASTING: YES Result Comment: LDL- C levels > or = 190 mg/dL may indicate familial hypercholesterolemia (FH). Clinical assessment and measurement of blood lipid levels should be considered for all first degree relatives of patients with an FH diagnosis. For questions about testing for familial hypercholesterolemia, please call [facility] at [email or web address]. Smita Thomason, et al. J National Lipid Association Recommendations for Patient-Centered Management of Dyslipidemia: Part 1 Journal of Clinical Lipidology 2015;9(2), 129-169. Reference range: <100 Desirable range <100 mg/dL for primary prevention; <70 mg/dL for patients with CHD or diabetic patients with > or = 2 CHD risk factors. LDL-C is now calculated using the Sergio-Jazzy calculation, which is a validated novel method providing better accuracy than the Friedewald equation in the estimation of LDL-C. Sergio PRICE et al. JOEL. 2013;310(19): 8085-1733 (http://education.Shopmium/faq/PJQ770) Performed By: #### 1 7306, 73247, 7600, 72250 #### [facility] [address], [address] [place] [address] [employer]: Francis Saunders MD Cholesterol.total/C holesterol in HDL [Mass ratio] 10.1 {ratio} High <5.0 [facility] Comment on above: Order Comment: FASTI NG:YES FASTING: YES Performed By: #### 1 7306, 52388, 7600, 59039 #### [facility] [place] [address] [employer]: Francis Saunders MD NON HDL CHOLESTEROL 354 mg/dL (calc) High <130 [facility] Comment on above: Order Comment: FASTI NG:YES FASTING: YES Result Comment: Non- HDL level > or = 220 is very high and may indicate genetic familial hypercholesterolemia (FH). Clinical assessment and measurement of blood lipid levels should be considered for all first-degree relatives of patients with an FH diagnosis. For patients with diabetes plus 1 major ASCVD risk factor, treating to a non-HDL-C goal of <100 mg/dL (LDL-C of <70 mg/dL) is considered a therapeutic option. Performed By: #### 1 7306, 79075, 6090, 48027 #### [facility] [place] [address] [employer]: Francis Saunders MD Triglyceride [Mass/Vol] 377 mg/dL High <150 [facility] Comment on above: Order Comment: FASTI NG:YES FASTING: YES Result Comment: If a non-fasting specimen was collected, consider repeat triglyceride testing on a fasting specimen if clinically indicated. Smita et al. J. of Clin. Lipidol. 2015;9:129-169. Performed By: #### 1 7306, 12351, 1410, 54675 #### [facility] [place] [address] [employer]: Francis Saunders MD TSH+FREE T4on 06-13-2021 Free T4 [Mass/Vol] 1.0 ng/dL Normal 0.8-1.8 [facility] Comment on above: Performed By: #### 1 7306, 61856, 7080, 69609 #### [facility] [place] [address] [employer]: Francis Saunders MD TSH Qn 0.47 m[IU]/L Normal [facility] Comment on above: Result Comment: Refe rence Range > or = 20 Years 0.40-4.50 Ranges First trimester 0.26-2.66 Second trimester 0.55-2.73 Third trimester 0.43-2.91 Performed By: #### 1 7306, 41757, 7600, 23330 #### [facility] [address], [address] [place], [place] [address] [employer]: Francis Saunders MD VITAMIN D,25-OH,TOTAL,IAon 0 06-13-2021 VITAMIN D,25-OH,TOTAL,IA 19 ng/mL Low 30-100 [facility] Comment on above: Result Comment: Samantha min D Status 25-OH Vitamin D: Deficiency: <20 ng/mL Insufficiency: 20 - 29 ng/mL Optimal: > or = 30 ng/mL For 25-OH Vitamin D testing on patients on D2-supplementation and patients for whom quantitation of D2 and D3 fractions is required, the QuestAssureD(TM) 25-OH VIT D, (D2,D3), LC/MS/MS is recommended: order code 66705 (patients >2yrs). See Note 1 Note 1 For additional information, please refer to http://education.Shopmium/faq/PMT417 (This link is being provided for informational/ educational purposes only.) Performed By: #### 1 7306, 73766, 6530, 33720 #### [facility] [address], [address] [place], [place] [address] [employer]: Francis Saunders MD Vital Signs Date Time Vital Sign Value Performing Clinician Facility 04-29-2023 09:40-0500 Body height 165.1 cm Agata James Other [facility] Other 04-29-2023 09:40-0500 Body mass index (BMI) [Ratio] 31.08 kg/m2 Agata James Other [facility] Other 04-29-2023 09:40-0500 Body temperature 97.8 [degF] Agata James Other [facility] Other 04-29-2023 09:40-0500 Body weight 84.73 kg Agata James Other [facility] Other 04-29-2023 09:40-0500 Respiratory rate 18 /min Agata James Other [facility] Other 04-29-2023 09:40-0500 SaO2% (BldA) [Mass fraction] 98 % Agata James Other [facility] Other 09-04-2021 11:30-0400 Body height 165.1 cm Yasmin Malinault Other [facility] Other 09-04-2021 11:30-0400 Body mass index (BMI) [Ratio] 30.78 kg/m2 Yasmin Dorothy Other [facility] Other 09-04-2021 11:30-0400 Body temperature 99.3 [degF] Yasmin Malinault Other [facility] Other 09-04-2021 11:30-0400 Body weight 83.92 kg Yasmin De La Cruz Other [facility] Other 09-04-2021 11:30-0400 Respiratory rate 16 /min Yasmin Dorothy Other [facility] Other 09-04-2021 11:30-0400 SaO2% (BldA) [Mass fraction] 98 % Yasmin Dorothy Other [facility] Other Encounters Encounter Date Encounter Type Care Provider Facility Start: 05-16-2023 Orders Only Krista Landeros Brock SHADOWGRAPH OPERATOR-INSIDE OUTSIDE SALES REPRESENTATIVE Work Phone: [facility] Start: 04-29-2023 End: 04-29-2023 ambulatory Agata James Other [facility] Other Start: 04-29-2023 Office outpatient vi sit 25 minutes Agata James [facility] Start: 10-29-2021 End: 10-30-2021 Evaluation and management of inpatient DR MICHAEL NELSON Facility:[facility] Start: 10-27-2021 Encounter for preprocedural laboratory examination DR MICHAEL NELSON [facility] Start: 10-26-2021 End: 10-27-[address] MICHAEL NELSON Facility:H1 Start: 10-26-2021 End: 10-27-2021 Encounter for preprocedural laboratory examination DR MICHAEL NELSON Facility:[facility]1 Start: 10-21-2021 Encounter for other preprocedural examination DR MICHAEL NELSON [facility] Start: 10-15-2021 End: 10-16-[address] MICHAEL NELSON Facility:[facility] Start: 10-15-2021 End: 10-16-2021 Encounter for other preprocedural examination DR MICHAEL NELSON Facility:[facility]1 Start: 09-04-2021 End: 09-04-2021 ambulatory Yasmin De La Cruz Other [facility] Other Start: 09-04-2021 Office outpatient ne w 30 minutes Yasmin De La Cruz [facility] Start: 08-27-2021 End: 08-28-[address] KRISTA GUTIÉRREZ Facility:[facility]1 Start: 07-29-2021 End: 07-30-[address] KRISTA GUTIÉRREZ Facility:[facility]1 Procedures Date Procedure Procedure Detail Performing Clinician Start: 10-21-2022 Mammography Krista Gutiérrez APRN-INSIDE OUTSIDE SALES REPRESENTATIVE Work Phone: Start: 07-26-2022 Adult depression scr eening assessment Krista Gutiérrez APRN-INSIDE OUTSIDE SALES REPRESENTATIVE Work Phone: Start: 10-29-2021 Resection of Uterus, Open Approach DR KRISTA GUTIÉRREZ Start: 04-23-2018 Microscopic observat ion [Identifier] in Cervix by Cyto stain Krista Gutiérrez APRN-INSIDE OUTSIDE SALES REPRESENTATIVE Work Phone: Plan of Treatment Date Care Activity Detail Author Start: 06-22-2028 DTaP,Tdap and Td Vaccines (2 - Td or Tdap) DTaP,Tdap and Td Vaccines (2 - Td or Tdap) [facility] Start: 10-22-2023 Screening for malign ant neoplasm of breast Mammogram [facility] Start: 07-27-2023 Adult BMI Screening Adult BMI Screen ing [facility] Start: 07-27-2023 Depression Screening Depression Scre ening [facility] Start: 07-27-2023 Tobacco Screening Tobacco Screening [facility] Start: 04-23-2023 Screening for malign ant neoplasm of cervix Pap Smear [facility] Start: 11-18-2022 Influenza vaccination Influenza Vacc ine [facility] Start: 1996 Adult BMI Follow Up Plan Adult BMI Follow Up Plan [facility] Immunizations Immunization Date Immunization Notes Care Provider Fa amie 06-22-2018 tetanus toxoid, redu jorge diphtheria toxoid, and acellular pertussis vaccine, adsorbed Krista Gutiérrez SHADOWGRAPH OPERATOR-INSIDE OUTSIDE SALES REPRESENTATIVE Work Phone: [facility] Payers Date Payer Category Payer Unknown [employer] OUT OF STATE PPO/TRUST [id number] 2021-Present [phone] [address] [place] [address] [id number] 1978 Unknown [id number] 1978 Unknown [id number] 1978 Unknown [id number] 1978 Unknown [id number] 1978 Unknown [id number] 1978 Unknown [id number] 1961 [facility] [id number] Social History Date Type Detail Facility Start: 02-25-2022 End: 07-26-2022 Sex Assigned At [facility] Other Start: 07-26-2022 Tobacco smoking status NHIS Ex-smoker [facility] History of tobacco use Current smoker [facility] History of tobacco use [place] [facility] Start: 02-25-2022 End: 07-26-2022 Cigarettes smoked current (pack per day) - Reported 0.5 [facility] Start: 07-26-2022 Tobacco use and exposure Smokeless tobacco non-user [facility] Start: 07-26-2022 Alcohol intake Current drinker of alcohol (finding) [facility] Adolescent depressio n screening assessment 0 [facility] Start: 1980 Sex Assigned At Female [facility] [employer] Start: 07-28-2022 Gender identity Identifies as female gender (finding) [facility] Start: 07-28-2022 Sexual orientation Heterosexual (finding) [facility] Evaluation note 04-29-2023 Note Date & Type Note Facility 04-29-2023 Evaluation note Encounter Date Diagnosis Assessment Notes Apr, Viral URI with cough (ICD-10 - J06.9) Patient declines/refuses testing today in office. Advised patient that will treat as viral URI. Advised that viral illnesses may last 7 to 10 days, antibiotics are not indicated at this time. Will send in Rx of prednisone and Use As Directed. Encouraged supportive care as directed, increase fluids and rest, Tylenol as directed, cool mist humidifier, throat lozenges. Discussed infection control practices such as good hand washing and mask wearing. Patient to follow up with PCP if symptoms persist or worsen despite treatment. Immediate eval for SOB, difficulty breathing, chest pain, fevers that do not break with antipyretic or any other concerning symptoms as reviewed on patient education handout. Patient verbalizes understanding and is agreeable to treatment plan. Patient left in stable condition. [facility] Other Discharge summary note 10-29-2021 Note Date & Type Note Facility 10-29-2021 Note DISCHARGE SUMMARY DISCHARGE DATE: 10/30/2021 PRIMARY DIAGNOSES: 1. Menorrhagia. 2. Dysmenorrhea. 3. Dyspareunia. PROCEDURE: Total abdominal hysterectomy with bilateral salpingectomy with cystoscopy. HOSPITAL COURSE: As expected. Please see chart for full details. LABORATORY DATA: Please see chart. COMPLICATIONS: None. DISCHARGE CONDITION: Stable. CONSULTATION: Anesthesia. DISCHARGE INSTRUCTIONS: 1. Diet: Regular. 2. Medications: a. Percocet 5/325 one to two p.o. every 4-6 hours p.r.n. pain. b. Motrin 800 one p.o. every 8 hours p.r.n. pain. 3. Followup in one week. Restrictions: Pelvic rest for 6 weeks. No heavy lifting. May drive when pain free and no longer on narcotics. [facility] Clinical Note 10-29-2021 Note Date & Type Note Facility 10-29-2021 Note OPERATIVE NOTE OPERATION DATE: 10/29/2021 PROCEDURE: Total abdominal hysterectomy with cystoscopy. PREOPERATIVE DIAGNOSIS: Menorrhagia, dysmenorrhea, dyspareunia. POSTOPERATIVE DIAGNOSIS: Menorrhagia, dysmenorrhea, dyspareunia. ANESTHESIA: General. SURGEON: Michael Nelson D.O. DIESEL TECHNICIAN: HAMLET Lowery URINE OUTPUT: Yellow and clear. BLOOD LOSS: 200 mL. SPECIMEN: Uterus. PROCEDURE NOTE: Patient was taken back to the Operating Room where she was given general anesthesia without difficulty. She was then prepped and draped in the normal sterile fashion. A Pfannenstiel skin incision was then made 2 cm above the symphysis and pubis and carried down to underlying rectus fascia using a Bovie. The fascia was incised in the midline and extended bilaterally using Frankel scissors. Two Rupinder clamps were placed on the superior aspect of the fascia and dissected off the underlying rectus muscle. The same was performed on the inferior aspect as well. The muscle was then in the midline. The peritoneum was identified and entered bluntly. Peritoneum was then extended superiorly and inferiorly with good visualization of the bladder. An O'Vxbldvyv-U-Oijgqg retractor was placed into the patient's abdomen. The bowel was packed away with moist laparotomy sponges and the bladder blade was inserted. A Leahey tenaculum was placed on the patient's uterus and used for retraction. LigaSure apparatus was then used to come across the mesosalpinx from the fimbriated end to the uteroovarian ligament on the patient's right side which was then cauterized and transected. This was carried down serially through the broad ligament and across the round ligament. The bladder flap was then created using the Metzenbaum scissors, and the bladder was easily dissected off the patient's lower uterine segment. A curved Amy was placed across the uterine artery on the right side which was clamped, transected, and suture ligated using #0 Monocryl. This was performed on the contralateral side as well. The bladder was further dissected and a Zeppelin clamp was then placed across the uterosacral and cardinal ligaments. This was transected and suture ligated using #0 Monocryl. This was performed on the contralateral side as well. The uterus was then amputated using Shruti scissors. The patient's cuff was closed using #0 PDS in a running locked fashion and this was transfixed to the ipsilateral uterosacral and cardinal ligaments. Excellent hemostasis was assured. The patient's abdomen was copiously irrigated using warm saline. Cystoscopy was performed. Bladder was intact. Efflux was noted from both ostia. Cystoscope was removed. After excellent hemostasis was assured, all instruments were removed from the patient's abdomen. The patient's peritoneum was closed using 3-0 Vicryl in a running fashion. The patient's fascia was closed using #0 Vicryl in a running fashion. The patient's skin was closed using 4-0 Vicryl on a Carlton needle. The patient tolerated the procedure well. Sponge, lap, and needle counts were correct times two. Patient taken to the Recovery Room in stable condition. ?? [facility] Evaluation note 09-04-2021 Note Date & Type Note Facility 09-04-2021 Evaluation note Encounter Date Diagnosis Assessment Notes Aug, Cough (ICD-10 - R05.9) Aug, COVID-19 (ICD-10 - U07.1) Today you tested positive for the COVID virus. This mean you need to follow all [facility] quarantine guidelines found at coronavirus.oh io.gov. It is important to rest, increase fluids, and stay at home. Contact PCP and inform them of results. Medications like Mucinex, Cepacol, Tylenol, saline nasal spray are over the counter medications that can help with the symptoms. Current guidelines include staying home, having no fever above 100.4 for 24 hours without medication and having significant improvement of symptoms before you are allowed to stop your quarantine.. For full guidelines go to CDC. GOV. Contact primary care and ask for guidance is essential to follow up * EDUCATION HANDOUT GIVEN ON OTC TREATMENTS, FOLLOW UP AND WHEN TO SEEK EMERGENCY TREATMENT Aug, Laryngitis (ICD-10 - J04.0) Symptoms of laryngitis is caused by viruses. Salt water gargles may help with discomfort. Take medications as directed. Cool mist humidifier, steaming up bathroom with shower may help with symptom relief. Follow up with primary care provider if no improvement of symptoms [facility] Other History general Narrative - Reported Note Date & Type Note Facility History general Narrative - Reported Type Medical History Migraines Surgical History x3 Hospitalization History See past surgical hx [facility] Other History general Narrative - Reported Note Date & Type Note Facility History general Narrative - Reported Type Medical History Migraines Surgical History x3 Surgical History hysterectomy 2021 Hospitalization History See past surgical hx [facility] Other Instructions Note Date & Type Note Facility Instructions Not on filedocumented in this en counter [facility] Summary Purpose Family History No Family History Records FoundNo Family History Records Found Advance Directives No Advanced Directives Records FoundNo Advanced Directives Records Found Additional Source Comments REASON FOR VISIT (unrecogniz ed section and content) DHALIWAL JEEP, COUGH, CONGESTION SORE THROAT, RUNNY NOSE, INFORMATION SOURCE (unrecogn ized section and content) DATE CREATED AUTHOR 10/05/2021 [facility] DATE CREATED AUTHOR AUTHOR'S ORGANIZ ATION 03/15/2022 [facility] Care Teams (unrecognized sec tion and content) Negotiator Sales Relationship Specialty Start Date End Date Ryan Armijo DO [address] [place] [address] PCP - General Family Medicine 01/18/22 FOR RECORDS PERTAINING TO PATIENTS WHO ARE OR HAVE BEEN ENROLLED IN A CHEMICAL DEPENDENCY/SUBSTANCEABUSE PROGRAM, SOME INFORMATION MAY BE OMITTED. This clinical summary was aggregated from multiple sources. Caution should be exercised in using it in the provision of clinical care. This summary normalizes information from multiple sources, and as a consequence, information in this document may materially change the coding, format and clinical context of patient data. In addition, data may be omitted in some cases. CLINICAL DECISIONS SHOULD BE BASED ON THE PRIMARY CLINICAL RECORDS. [employer] provides no warranty or guarantee of the accuracy or completeness of information in this document.
== END 2023-06-07 08:23 | disposition home or self-care (01) ==
LOC: NOMS 08:23
PROVIDERS: PCP Family Medicine; Visit Provider Obstetrics & Gynecology
DX: R10.2 Pelvic and perineal pain (principal)
CPT/HCPCS: 76830; 76856

== ENCOUNTER 2023-11-24 07:48 | Outpatient (OUT) | payer BC, SELFPAY ==
--- NOTE | 2023-11-24 07:53 | MM_ITS ---
Patient Name: JESSICA YU MR#: [id number] : 1980 Exam Date: 11/24/2023 Ordering Doctor: DR ROME RAZA RADIOLOGY REPORT PROCEDURE: MM TOMOSYNTHESIS SCREENING BI COMPARISON: MM TOMOSYNTHESIS SCREENING BI, 10/21/2022. MG MAMM SCREEN 3D SERA CAD, 07/29/2021. MG MAMM SCREEN 3D SERA CAD, 07/21/2020. MG MAMM ESRA SCRN W CAD DIG, 01/23/2014. INDICATIONS: Screening Calculator Name NCI Breast Cancer Risk Assessment Tool 5 Year Breast Cancer Risk 1.50% Lifetime Breast Cancer Risk 17.70% Personal Breast Cancer No Personal Ovarian Cancer No Treatments None Family Cancers Mother with breast cancer at age 54. LOCATION: [facility] BREAST COMPOSITION: The breasts are extremely dense, which lowers the sensitivity of mammography. FINDINGS: DIAGNOSTIC CATEGORY 1--NEGATIVE. RIGHT BREAST: No significant suspicious finding. No significant change has occurred. LEFT BREAST: No significant suspicious finding. No significant change has occurred. RECOMMENDATIONS: ROUTINE MAMMOGRAM AND CLINICAL EVALUATION IN 12 MONTHS. PLEASE NOTE: A NORMAL MAMMOGRAM DOES NOT EXCLUDE THE POSSIBILITY OF BREAST CANCER. A CLINICALLY SUSPICIOUS PALPABLE LUMP SHOULD BE BIOPSIED. Dictated by: Josh Smith M.D. on 11/24/2023 at 16:20 Approved by: Josh Smith M.D. on 11/24/2023 at 16:41
--- OUTSIDE RECORDS SUMMARY | 2023-11-24 07:53 | XMS_ITS | CCD ---
Author Organization [facility] Care Team Providers Care Crew Scheduler Name Role Phone Yasmin De La Cruz Unavailable DEZ, DR KRISTA Cooper Admitting Unavailable KUNTiffanie, DR KRISTA Cooper Attending Unavailable KUNS, DR KRISTA Cooper Primary Care Unavailable SOL, DR FRANCOIS Pearson Consulting Unavailable KUNS, DR KRISTA Cooper Consulting Unavailable KILEY, DR RODRIGUEZ Admitting Unavailable KILEY, DR RODRIGUEZ Attending Unavailable KUNS, DR KRISTA Cooper Primary Care Unavailable WEST, DR FRANCOIS Pearson Consulting Unavailable KILEY, DR RODRIGUEZ Consulting Unavailable KUNS, DR KRISTA Cooper Primary Care Unavailable MISC, DR PRESSLEY Admitting Unavailable MISC, DR PRESSLEY Attending Unavailable MISC, DR PRESSLEY Consulting Unavailable KILEY, DR RODRIGUEZ Admitting Unavailable KILEY, DR RODRIGUEZ Attending Unavailable FURLONG, DR RYAN Mcdaniel Primary Care Unavailable SABINA HORNE Consulting Unavailable KILEY, DR RODRIGUEZ Admitting Unavailable KILEY, DR RODRIGUEZ Attending Unavailable FURLONG, DR RYAN Mcdaniel Primary Care Unavailable KILEY, DR RODRIGUEZ Consulting Unavailable KILEY, DR RODRIGUEZ Admitting Unavailable KILEY, DR RODRIGUEZ Attending Unavailable FURLONG, DR RYAN Mcdaniel Primary Care Unavailable KILEY, DR RODRIGUEZ Consulting Unavailable KILEY, DR RODRIGUEZ Procedure Practitioner Unavailab KAMRYN Aguirre Consulting Unavailable ANTONIO STANLEY Consulting Unavailable Agata James Unavailable Ryan Armijo DO Primary Care Provider KRISTA GUTIÉRREZ Attending Unavailable RYAN ARMIJO Referring Unavailable RYAN ARMIJO Primary Care Unavailable KRISTA GUTIÉRREZ Referring Unavailable RYAN ARMIJO Primary Care Unavailable PATRIA MELENDEZ Attending Unavailable PATRIA MELENDEZ Attending Unavailable Allergies Allergy Classification Reported Allergen(s) Allergy Type Date of Onset Reaction(s) Facility (6 sources) gabapentin; Translations: [GABAPENTIN] Drug Allergy 2 Other (See Comments) Proberry (1 source) gabapentin Drug Allergy [facility] Repository Medications Current Medications Medication Drug Class(es) Dates Sig (Normalized) Sig (Original) acyclovir 50 mg/ml / hydrocortisone 10 mg/ml topical cream (4 sources) Herpesvirus Nucleoside Analog DNA Polymerase Inhibitor, Corticosteroid, Herpes Simplex Virus Nucleoside Analog DNA Polymerase Inhibitor, Herpes Zoster Virus Nucleoside Analog DNA Polymerase Inhibitor Start: 07-26-2022 End: 05-21-2023 acyclovir-hydroco rtisone (XERESE) 5-1 % cream Indications: Herpes labialis Apply 1 Application topically 5 (five) times a day. 5 g 2 07/26/2022 Active End: 05-16-2023 acyclovir-hydrocortisone (XE RESE) 5-1 % cream Xerese 5 %-1 % topical cream 0 05/16/2023 Discontinued (Reorder) cholecalciferol 0.125 mg oral capsule (2 sources) Vitamin D Start: 02-25-2022 take 1 capsule by mouth in the morning cholecalciferol, vitamin D3, (VITAMIN D3) 5,000 units capsule Take 1 capsule (5,000 Units total) by mouth in the morning. 100 capsule 3 02/25/2022 Active cyclobenzaprine hydrochloride 10 mg oral tablet (2 sources) Muscle Relaxant take 1 tablet by mouth three times daily cyclobenzaprine (FLEXERIL) 10 mg tablet cyclobenzaprine 10 mg tablet TAKE 1 TABLET BY MOUTH THREE TIMES DAILY 0 Active dextromethorphan hydrobromide 1.5 mg/ml / pyrilamine maleate 1.5 mg/ml oral solution (1 source) Uncompetitive U-nfjbbz-I-asparta te Receptor Antagonist, Sigma-1 Agonist Start: 04-29-2023 take 10 mL by mouth every eight hours [place] DM 7.5-7.5 MG/5ML 10 mL Orally every 8 hours for 5 days Apr, Active diclofenac sodium 75 mg delayed release oral tablet (2 sources) Nonsteroidal Anti-inflammatory Drug take 1 tablet by mouth twice daily diclofenac (VOLTAREN) 75 mg EC tablet diclofenac sodium 75 mg tablet,delayed release TAKE 1 TABLET BY MOUTH TWICE DAILY 0 Active fluticasone propionate 0.5 mg/ml topical cream (2 sources) Corticosteroid fluticasone propionate (CUTIVATE) 0.05 % cream fluticasone propionate 0.05 % topical cream APPLY TO THE AFFECTED AREA(S) on back and chest at NIGHT FOR 1 WEEK 0 Active icosapent ethyl 1000 mg oral capsule (2 sources) Start: 07-27-2022 take 2 capsules by mouth at bedtime icosapent ethyL (VASCEPA) 1 gram capsule Take 2 capsules (2 g total) by mouth in the morning and 2 capsules (2 g total) before bedtime. 360 capsule 3 07/27/2022 Active LORazepam 0.5 mg oral tablet (4 sources) Benzodiazepine take 1 tablet by mouth once daily LORazepam (ATIVAN) 0.5 mg tablet lorazepam 0.5 mg tablet TAKE 1 TABLET BY MOUTH DAILY 0 Active methylPREDNISolone 4 mg oral tablet (3 sources) Corticosteroid Start: 09-04-2021 methylPREDNISolone 4 MG as directed Orally for 6 Apr, Active naratriptan 2.5 mg oral tablet (4 sources) Serotonin-1b and Serotonin-1d Receptor Agonist Start: 02-15-2022 naratriptan (AMERGE) 2.5 mg tablet ondansetron 4 mg disintegrating oral tablet (2 sources) Serotonin-3 Receptor Antagonist Start: 02-15-2022 ondansetron ODT (ZOFRAN ODT) 4 mg disintegrating tablet rosuvastatin calcium 10 mg oral tablet (4 sources) HMG-CoA Reductase Inhibitor Start: 09-09-2022 rosuvastatin (CRESTOR) 10 mg tablet TAKE 1 TABLET IN THE MORNING 90 tablet 3 09/09/2022 Active Rosuvastatin Ruy cium Active valACYclovir 1000 mg oral tablet (4 sources) Herpesvirus Nucleoside Analog DNA Polymerase Inhibitor, [...] Date Documented Da te Episodic/Chronic Anxiety disorders (4 sources) Anxiety disorder, unspecified; Translations: [Anxiety] Onset: 11-04-2021 02-25-2022 Chronic Disorders of lipid metabolism (5 sources) Mixed hyperlipidemia; Translations: [Mixed hyperlipidemia] Onset: 06-13-2021 02-25-2022 Chronic Headache; including migraine (4 sources) Migraine; Translations: [Migraine] Onset: 02-25-2022 02-25-2022 Chronic Menstrual disorders (5 sources) Excessive and frequent menstruation with regular cycle; Translations: [Dysmenorrhea, unspecified] Onset: 10-27-2021 Chronic Nausea and vomiting (2 sources) Vomiting; Translations: [Vomiting] Episodic Nutritional deficiencies (2 sources) Vitamin D deficiency; Translations: [Vitamin D deficiency, unspecified] Onset: 05-07-2019 02-25-2022 Chronic Other female genital disorders (1 source) Unspecified dyspareunia; Translations: [UNSPECIFIED DYSPAREUNIA] Onset: 11-04-2021 Chronic Other lower respiratory disease (2 sources) Cough; Translations: [Cough] Episodic Other nutritional; endocrine; and metabolic disorders (1 source) Body mass index (BMI) 29.0-29.9, adult; Translations: [Body mass index (BMI) 29.0-29.9, adult] Onset: 08-03-2023 Episodic Other upper respiratory infections (2 sources) Acute laryngitis; Translations: [Acute upper respiratory infection, unspecified] Onset: 09-04-2021 Resolved: 09-04-2021 Episodic Substance-related disorders (1 source) Nicotine dependence, cigarettes, uncomplicated; Translations: [NICOTINE DEPEND CIGARETTES UNCOMP] Onset: 11-04-2021 Chronic Unclassified (1 source) CONTACT W/AND (SUSP) EXPOS COVID-19; Translations: [CONTACT W/AND (SUSP) EXPOS COVID-19] Onset: 10-27-2021 Unclassified (1 source) Annual Exam Onset: 08-03-2023 Past or Other Problems Problem Classification Problem Date Documented Da te Episodic/Chronic Allergic reactions (4 sources) Allergic contact dermatitis, unspecified cause; Translations: [ALLERG CONTACT DERMATITS UNS CAUSE] Onset: 08-27-2021 Episodic Mood disorders (2 sources) Depressive disorder; Translations: [Depressive disorder] Onset: 02-25-2022 Resolved: 07-26-2022 07-26-2022 Chronic Mood disorders (2 sources) Mood disorders Onset: 07-26-2022 07-26-2022 Other aftercare (1 source) Other supervisor intermediates (current) drug therapy; Translations: [OTH [facility] CURRENT DRUG THERAPY] Onset: 11-04-2021 Episodic Other screening for suspected conditions (not mental disorders or infectious disease) (4 sources) Encounter for screening mammogram for malignant neoplasm of breast; Translations: [ENC SCR MAMMO MALIG NEOPLASM BREAST] Onset: 07-29-2021 Episodic Ovarian cyst (2 sources) Cyst of ovary; Translations: [Unspecified ovarian cyst, unspecified side] Onset: 02-25-2022 02-25-2022 Episodic Residual codes; unclassified (1 source) Family history of malignant neoplasm of breast; Translations: [FAMILY HX MALIG NEOPLASM OF BREAST] Onset: 08-03-2021 Episodic Unclassified (1 source) Cough R05.9 Onset: 09-04-2021 Resolved: 09-04-2021 Viral infection (3 sources) Herpes labialis; Translations: [Herpesviral vesicular dermatitis] Onset: 11-24-2017 02-25-2022 Episodic Viral infection (1 source) COVID-19 Onset: 09-04-2021 Resolved: 09-04-2021 Results Test Name Value Interpretation Reference Range Facility COMPREHENSIVE METABOLIC PANE [facility] 08-03-2023 Albumin [Mass/Vol] 4.2 g/dL Normal 3.2-5.3 [facility] [place] Comment on above: Performed By: #### Manny ORR 87320-7 #### [facility] ([id number]) [address] [place] [address] ALP [Catalytic activity/Vol] 67 U/L Normal 39-130 [facility] Comment on above: Performed By: #### Manny ORR 89332-0 #### [facility] ([id number]) [address] [place] [address] ALT [Catalytic activity/Vol] 19 U/L Normal 0-31 [facility] Comment on above: Performed By: #### Manny ORR 95938-0 #### [facility] ([id number]) [address] [place] [address] Anion gap [Moles/Vol] 7 mmol/L Normal 5-15 [facility] Comment on above: Performed By: #### Manny ORR, 32453-8 #### [facility] ([id number]) [address] [place] [address] AST [Catalytic activity/Vol] 19 U/L Normal 0-41 [facility] Comment on above: Performed By: #### Manny ORR, 65854-1 #### [facility] ([id number]) [address], [address] [place] [address] Bilirubin [Mass/Vol] 0.7 mg/dL Normal 0.3-1.2 [facility] Comment on above: Performed By: #### Manny ORR, 10662-3 #### [facility] ([id number]) [address], [address] [place] [address] Calcium [Mass/Vol] 9.4 mg/dL Normal 8.5-10.5 [facility] Comment on above: Performed By: #### Manny ORR, 89532-3 #### [facility] ([id number]) [address] [place] [address] Chloride [Moles/Vol] 106 mmol/L Normal 98-109 [facility] Comment on above: Performed By: #### Manny ORR, 24429-2 #### [facility] ([id number]) [address], [address] [place] [address] CO2 [Moles/Vol] 27 mmol/L Normal 22-32 [facility] Comment on above: Performed By: #### Manny ORR, 13774-9 #### [facility] ([id number]) [address] [place] [address] Creatinine [Mass/Vol] 0.79 mg/dL Normal 0.40-1.00 [facility] Comment on above: Result Comment: METH OD TRACEABLE TO IDMS STANDARD Performed By: #### Manny ORR, 14742-5 #### [facility] ([id number]) [address], [address] [place] [address] eGFR (CKD-EPI) NON-RACE DEPENDENT >90 Normal >59 [facility] Comment on above: Result Comment: Reported eGFR is based on the CKD-EPI 2020 equation that does not use a race coefficient. Performed By: #### Manny ORR 36634-3 #### [facility] ([id number]) [address] [place] [address] Glucose [Mass/Vol] 102 mg/dL High 65-99 [facility] Comment on above: Performed By: #### Manny ORR 66515-1 #### [facility] ([id number]) [address] [place] [address] Potassium [Moles/Vol] 3.9 mmol/L Normal 3.5-5.0 [facility] Comment on above: Performed By: #### Manny ORR 50805-2 #### [facility] ([id number]) [address] [place] [address] Protein [Mass/Vol] 7.4 g/dL Normal 6.0-8.0 [facility] Comment on above: Performed By: #### Manny ORR 50108-9 #### [facility] ([id number]) [address] [place] [address] Sodium [Moles/Vol] 140 mmol/L Normal 134-146 [facility] [place] Comment on above: Performed By: #### Manny ORR, 65640-6 #### [facility] ([id number]) [address] [place] [address] Urea nitrogen [Mass/Vol] 11 mg/dL Normal 5-23 [facility] Comment on above: Performed By: #### Manny ORR, 52822-5 #### [facility] ([id number]) [address] [place] [address] Lipid 1996 panelon 4 Cholesterol [Mass/Vol] 124 mg/dL Low 150-200 [facility] Comment on above: Performed By: #### Manny ORR, 95091-6 #### [facility] ([id number]) [address] [place] [address] Cholesterol in HDL [Mass/Vol] 41 mg/dL Normal >39 [facility] Comment on above: Result Comment: HDL <40 mg/dL - High Risk HDL > or = 40mg/dL- Desirable HDL >60 mg/dL - Negative Risk Performed By: #### Manny ORR, 25078-8 #### [facility] ([id number]) [address] [place] [address] Cholesterol in LDL [Mass/Vol] 50 mg/dL Normal <130 [facility] Comment on above: Result Comment: LDL <100 mg/dL - Desirable LDL >160 mg/dL - High Risk Performed By: #### Manny ORR, 82128-8 #### [facility] ([id number]) [address] [place] [address] Cholesterol in VLDL [Mass/Vol] 33 mg/dL High 0-30 [facility] Comment on above: Performed By: #### Manny ORR, 48674-9 #### [facility] ([id number]) [address] [place] [address] CHOLESTEROL:HDL 3.0 Normal 1.0-5.0 [facility] Comment on above: Performed By: #### C DOMINGA, 22040-5 #### [facility] ([id number]) [address] [place] [address] Triglyceride [Mass/Vol] 165 mg/dL High 27-150 [facility] Comment on above: Performed By: #### C DOMINGA, 76018-6 #### [facility] ([id number]) [address] [place] [address] BUNon 10-30-2021 Urea nitrogen [Mass/Vol] 7.0 mg/dL Normal 7.0-18.0 [facility] Comment on above: Performed By: #### C LEONA, BUN #### [facility] [address] [place] [address] Dr. Sin Watkins CBC AUTO DIFFon 10-30-2021 BASO # 0.0 103/ul Normal 0.0-0.1 [facility] Comment on above: Performed By: #### C BC #### [facility] [address] [place] [address] Dr. Sin Watkins Basophils/100 WBC (Bld) 0.1 % Critically low 0.2-2.0 [facility] Comment on above: Performed By: #### C BC #### [facility] [address] [place] [address] Dr. Sin Watkins EO # 0.0 103/ul Normal 0.0-0.7 [facility] Comment on above: Performed By: #### C BC #### [facility] [address] [place] [address] Dr. Sin Watkins Eosinophils/100 WBC (Bld) 0.0 % Critically low 0.9-7.0 [facility] Comment on above: Performed By: #### C BC #### [facility] [address] [place] [address] Dr. Sin Watkins Erythrocyte distribution width (RBC) [Ratio] 12.2 % Normal 11.0-15.0 [facility] Comment on above: Performed By: #### C BC #### [facility] [address] [place] [address] Dr. Sin Watkins Hematocrit (Bld) [Volume fraction] 39.3 % Normal 36.0-48.0 [facility] Comment on above: Performed By: #### C BC #### [facility] [address] [place] [address] Dr. Sin Watkins Hemoglobin (Bld) [Mass/Vol] 13.0 g/dL Normal 12.0-16.0 [facility] Comment on above: Performed By: #### C BC #### [facility] [address] [place] [address] Dr. Sin Watkins IG # 0.08 10e3/ul Critically high 0.00-0.03 [facility] Comment on above: Performed By: #### C BC #### [facility] [address] [place] [address] Dr. Sin Watkins IG % 0.5 % Normal 0.0-0.5 [facility] Comment on above: Performed By: #### C BC #### [facility] [address] [place] [address] Dr. Sin Watkins LYMPH # 1.7 103/ul Normal 1.2-3.8 [facility] Comment on above: Performed By: #### C BC #### [facility] [address] [place] [address] Dr. Sin Watkins Lymphocytes/100 WBC (Bld) 10.3 % Critically low 20.5-60.0 [facility] Comment on above: Performed By: #### C BC #### [facility] [address] [place] [address] Dr. Sin Watkins MANUAL DIFF REQ NO Normal [facility] Comment on above: Performed By: #### C BC #### [facility] [address] [place] [address] Dr. Sin Watkins MCH (RBC) [Entitic mass] 31.3 pg Normal 26.7-34.0 [facility] Comment on above: Performed By: #### C BC #### [facility] [address] [address] [address] Sin Watkins MCHC (RBC) [Mass/Vol] 33.1 g/dL Normal 29.9-35.2 [facility] Comment on above: Performed By: #### C BC #### [facility] [address] [address] [address] Sin Watkins MCV (RBC) [Entitic vol] 94.7 fL Normal 81.0-99.0 [facility] Comment on above: Performed By: #### C BC #### [facility] [address] [address] [address] Sin Watkins MONO # 0.7 103/ul Normal 0.3-0.8 [facility] Comment on above: Performed By: #### C BC #### [facility] [address] [place] [address] Dr. Sin Watkins Monocytes/100 WBC (Bld) 4.3 % Normal 1.7-12.0 [facility] Comment on above: Performed By: #### C BC #### [facility] [address] [place] [address] Dr. Sin Watkins NEUT # 14.4 103/ul Critically high 1.4-6.5 [facility] Comment on above: Performed By: #### C BC #### [facility] [address] [place] [address] Dr. Sin Watkins Neutrophils/100 WBC (Bld) 84.8 % Critically high 43.0-75.0 [facility] Comment on above: Performed By: #### C BC #### [facility] [address] [address] [address] Sin Watkins Platelet mean volume (Bld) [Entitic vol] 11.6 fL Normal 9.5-13.5 [facility] Comment on above: Performed By: #### C BC #### [facility] [address] [place] [address] Dr. Sin Watkins PLT 182 103/ul Normal 150-450 [facility] Comment on above: Performed By: #### C BC #### [facility] [address] [address] [address] Sin Watkins RBC 4.15 106/ul Critically low 4.20-5.40 [facility] Comment on above: Performed By: #### C BC #### [facility] [address] [address] [address] Sin Watkins WBC 16.9 103/ul Critically high 4.0-11.0 [facility] Comment on above: Performed By: #### C BC #### [facility] [address] [address] [address] Sin Watkins CREATININEon 10-30-2021 Creatinine [Mass/Vol] 0.72 mg/dL Normal 0.55-1.02 [facility] Comment on above: Performed By: #### C LEONA, BUN #### [facility] [address] [place] [address] Dr. Sin Watkins EGFR-AF TAIWANESE >60 Normal >=60 [facility] Comment on above: Performed By: #### C LEONA, BUN #### [facility] [address] [address] [address] Sin Watkins EGFR-NON AF TAIWANESE >60 Normal >=60 [facility] Comment on above: Performed By: #### C LEONA, BUN #### [facility] [address] [address] [address] Sin Watkins CBC AUTO DIFFon 10-29-2021 BASO # 0.0 103/ul Normal 0.0-0.1 [facility] Comment on above: Performed By: #### C BC ####[facility] [address] [address]Dr. Sin Watkins Basophils/100 WBC (Bld) 0.3 % Normal 0.2-2.0 [facility] Comment on above: Performed By: #### C BC ####[facility] [address] [address]Dr. Sin Watkins EO # 0.1 103/ul Normal 0.0-0.7 [facility] Comment on above: Performed By: #### C BC ####[facility] [address] [address]Dr. Sin Watkins Eosinophils/100 WBC (Bld) 1.5 % Normal 0.9-7.0 [facility] Comment on above: Performed By: #### C BC ####[facility] [address] [address]Dr. Sin Watkins Erythrocyte distribution width (RBC) [Ratio] 12.2 % Normal 11.0-15.0 [facility] Comment on above: Performed By: #### C BC ####[facility] [address] [place], [place] [address]Dr. Sin Watkins Hematocrit (Bld) [Volume fraction] 44.8 % Normal 36.0-48.0 [facility] Comment on above: Performed By: #### C BC ####[facility] [address] [place], [place] [address]Dr. Sin Watkins Hemoglobin (Bld) [Mass/Vol] 15.5 g/dL Normal 12.0-16.0 [facility] Comment on above: Performed By: #### C BC ####[facility] [address] [place], [place] [address]Dr. Sin Watkins IG # 0.02 10e3/ul Normal 0.00-0.03 [facility] Comment on above: Performed By: #### C BC ####[facility] [address] [place], [place] [address]Dr. Sin Watkins IG % 0.3 % Normal 0.0-0.5 [facility] Comment on above: Performed By: #### C BC ####[facility] [address] [place], [place] [address]Dr. Sin Watkins LYMPH # 3.1 103/ul Normal 1.2-3.8 [facility] Comment on above: Performed By: #### C BC ####[facility] [address] [place], [place] [address]Dr. Sin Watkins Lymphocytes/100 WBC (Bld) 41.8 % Normal 20.5-60.0 [facility] Comment on above: Performed By: #### C BC ####[facility] [address] [address]Dr. Sin Watkins MANUAL DIFF REQ NO Normal [facility] Comment on above: Performed By: #### C BC ####[facility] [address] [address]Dr. Sin Watkins MCH (RBC) [Entitic mass] 31.6 pg Normal 26.7-34.0 [facility] Comment on above: Performed By: #### C BC ####[facility] [address] [place], [place] [address]Dr. Sin Watkins MCHC (RBC) [Mass/Vol] 34.6 g/dL Normal 29.9-35.2 [facility] Comment on above: Performed By: #### C BC ####[facility] [address] [place], [place] [address]Dr. Sin Roland MCV (RBC) [Entitic vol] 91.4 fL Normal 81.0-99.0 [facility] Comment on above: Performed By: #### C BC ####[facility] [address] [place], [place] [address]Dr. Sin Watkins MONO # 0.5 103/ul Normal 0.3-0.8 [facility] Comment on above: Performed By: #### C BC ####[facility] [address] [address] [place], [place] [address]Dr. Monairasema Watkins Monocytes/100 WBC (Bld) 7.3 % Normal 1.7-12.0 [facility] Comment on above: Performed By: #### C BC ####[facility] [address] [place], [place] [address]Dr. Sin Watkins NEUT # 3.6 103/ul Normal 1.4-6.5 [facility] Comment on above: Performed By: #### C BC ####[facility] [address] [place], [place] [address]Dr. Sin Watkins Neutrophils/100 WBC (Bld) 48.8 % Normal 43.0-75.0 [facility] Comment on above: Performed By: #### C BC ####[facility] [address] [place], [place] [address]Nd. Sin Roland Platelet mean volume (Bld) [Entitic vol] 10.7 fL Normal 9.5-13.5 [facility] Comment on above: Performed By: #### C BC ####[facility] [address] [place], [place] [address]Qz. Sin Watkins PLT 192 103/ul Normal 150-450 [facility] Comment on above: Performed By: #### C BC ####[facility] [address] [place], [place] [address]Vg. Sin Roland RBC 4.90 106/ul Normal 4.20-5.40 [facility] Comment on above: Performed By: #### C BC ####[facility] [address] [place], [place] [address]Ef. Monairasema Roland WBC 7.4 103/ul Normal 4.0-11.0 [facility] Comment on above: Performed By: #### C BC ####[facility] [address] [place], [place] [address]Gx. Sin Roland PREG HCG QUALon 10-29-2021 , QUAL Negative Normal NEGATIVE [facility] Comment on above: Performed By: #### P REG #### [facility] Laboratory [address] [place], [place] [address] Dr. Sin Watkins Covid-19 PCR (CVDTB)on SARS-CoV-2 (COVID-19) RNA AVTAR+probe Ql (Unsp spec) Not detected Normal NOT DETECTED [facility] Comment on above: Result Comment: This test is not yet approved or cleared by the [place] FDA. When there are no FDA-approved or cleared tests available, and other criteria are met, FDA can make tests available under an emergency access mechanism called an Emergency Use Authorization (EUA). The EUA for this test is supported by the Chief Of Production of Health and Human Service's (HHS's) declaration [...] with SARS-CoV-2. Performed By: #### C VDTB ####[facility] [address]64 [place], [place] [address]Qg. Sin Watkins TYPE AND SCREENon 10-26-2021 TYPE AND SCREEN Negative Normal [facility] Comment on above: Performed By: #### T NS ####[facility] [address] [place], [place] [address]Ia. Sin Watkins DRUG TOX MONITORING 5 W/CONF , URINEon 09-29-2021 Amphetamines Negative Normal <500 [facility] Comment on above: Performed By: #### 9 1485 #### [facility] [place] [address] Sweater Operator: Francis Saunders MD Benzodiazepines Negative Normal <100 [facility] Comment on above: Performed By: #### 9 1485 #### [facility] [place] [address] Sweater Operator: Francis Saunders MD Buprenorphine Negative Normal <5 [facility] Comment on above: Performed By: #### 9 1485 #### [facility] [place] [address] Sweater Operator: Francis Saunders MD Cocaine Metabolite Negative Normal <150 [facility] Comment on above: Performed By: #### 9 1485 #### [facility] [place] [address] Sweater Operator: Francis Saunders MD COMMENT Normal [facility] Comment on above: Result Comment: See Note 1 Note 1 This drug testing is for medical treatment only. Analysis was performed as non-forensic testing and these results should be used only by healthcare providers to render diagnosis or treatment, or to monitor progress of medical conditions. For assistance with interpreting these drug results, please contact a [facility] Specialist: [phone] ( ), M-F, 8am-6pm EST. Performed By: #### 9 1485 #### [facility] of [place] [address] Sweater Operator: Francis Saunders MD Heroin Metabolite Negative Normal <10 [facility] Comment on above: Performed By: #### 9 1485 #### [facility] of [place] [address] Sweater Operator: Francis Saunders MD Marijuana Metabolite 20 Negative Normal <20 [facility] Comment on above: Performed By: #### 9 1485 #### [facility] [place] [address] Sweater Operator: Francis Saunders MD Methadone Metabolite Negative Normal <100 [facility] Comment on above: Performed By: #### 9 1485 #### [facility] of [place] [address] Sweater Operator: Francis Saunders MD Opiates Negative Normal <100 [facility] Comment on above: Performed By: #### 9 1485 #### [facility] [place] [address] Sweater Operator: Francis Saunders MD Oxycodone Negative Normal <100 [facility] Comment on above: Performed By: #### 9 1485 #### [facility] of [place] [address] Sweater Operator: Francis Saunders MD Phencyclidine Negative Normal <25 [facility] Comment on above: Performed By: #### 9 1485 #### [facility] of [place] [address] Sweater Operator: Francis Saunders MD SARS-CoV-2 (COVID-19) RNA NA A+probe Ql (Resp)on 09-04-2021 SARS-CoV-2 (COVID-19) RNA AVTAR+probe Ql (Unsp spec) Positive [facility] Other ANDIE by IFAon 08-30-2021 Antinuclear Antibodies, IFA Negative Normal [facility] Comment on above: Result Comment: Nega tive <1:80 Borderline 1:80 Positive >1:80 ICAP nomenclature: AC-0 For more information about Hep-2 cell patterns use ANApatterns.org, the official website for the International Consensus on Antinuclear Antibody (ANDIE) Patterns (ICAP). Performed By: #### A NAIFA ####[facility] [address] [place] [address]Dr. Sin Roland CBC AUTO DIFFon 08-27-2021 BASO # 0.0 103/ul Normal 0.0-0.1 [facility] Comment on above: Performed By: #### C BC ####[facility] [address] [place], [place] [address]Dr. Sin Watkins Basophils/100 WBC (Bld) 0.1 % Critically low 0.2-2.0 [facility] Comment on above: Performed By: #### C BC ####[facility] [address] [place], [place] [address]Dr. Sin Watkins EO # 0.1 103/ul Normal 0.0-0.7 [facility] Comment on above: Performed By: #### C BC ####[facility] [address] [place], [place] [address]Dr. Sin Watkins Eosinophils/100 WBC (Bld) 1.2 % Normal 0.9-7.0 [facility] Comment on above: Performed By: #### C BC ####[facility] E[address] [place], [place] [address]Dr. Monairasema Watkins Erythrocyte distribution width (RBC) [Ratio] 12.4 % Normal 11.0-15.0 [facility] Comment on above: Performed By: #### C BC ####[facility] [address] [place], [place] [address]Dr. Sin Watkins Hematocrit (Bld) [Volume fraction] 46.1 % Normal 36.0-48.0 [facility] Comment on above: Performed By: #### C BC ####[facility] [address] [place] [address]Dr. Sin Watkins Hemoglobin (Bld) [Mass/Vol] 15.6 g/dL Normal 12.0-16.0 [facility] Comment on above: Performed By: #### C BC ####[facility] [address] [place] [address]Dr. Sin Watkins IG # 0.02 10e3/ul Normal 0.00-0.03 [facility] Comment on above: Performed By: #### C BC ####[facility] [address]ie[address] [place] [address]Dr. Sin Watkins IG % 0.3 % Normal 0.0-0.5 [facility] Comment on above: Performed By: #### C BC ####[facility] [address] [place] [address]Dr. Sin Watkins LYMPH # 2.1 103/ul Normal 1.2-3.8 [facility] Comment on above: Performed By: #### C BC ####[facility] [address] [place] [address]Dr. Sin Watkins Lymphocytes/100 WBC (Bld) 28.7 % Normal 20.5-60.0 [facility] Comment on above: Performed By: #### C BC ####[facility] [address] [place] [address]Dr. Sin Watkins MANUAL DIFF REQ NO Normal [facility] Comment on above: Performed By: #### C BC ####[facility] [address]xs[address] [place] [address]Dr. Sin Watkins MCH (RBC) [Entitic mass] 31.5 pg Normal 26.7-34.0 [facility] Comment on above: Performed By: #### C BC ####[facility] [address] [place] [address]Dr. Sin Watkins MCHC (RBC) [Mass/Vol] 33.8 g/dL Normal 29.9-35.2 [facility] Comment on above: Performed By: #### C BC ####[facility] [address] [place] [address]Dr. Sin Watkins MCV (RBC) [Entitic vol] 92.9 fL Normal 81.0-99.0 [facility] Comment on above: Performed By: #### C BC ####[facility] [address] [place] [address]Dr. Sin Watkins MONO # 0.4 103/ul Normal 0.3-0.8 [facility] Comment on above: Performed By: #### C BC ####[facility] [address] [place], [place] [address]Dr. Sin Watkins Monocytes/100 WBC (Bld) 5.7 % Normal 1.7-12.0 [facility] Comment on above: Performed By: #### C BC ####[facility] H[address] [place], [place] [address]Dr. Sin Watkins NEUT # 4.8 103/ul Normal 1.4-6.5 [facility] Comment on above: Performed By: #### C BC ####[facility] E[address] [place], [place] [address]Dr. Sin Watkins Neutrophils/100 WBC (Bld) 64.0 % Normal 43.0-75.0 [facility] Comment on above: Performed By: #### C BC ####[facility] [address] [place], [place] [address]Dr. Sin Watkins Platelet mean volume (Bld) [Entitic vol] 11.4 fL Normal 9.5-13.5 [facility] Comment on above: Performed By: #### C BC ####[facility] [address] [place], [place] [address]Dr. Sin Watkins PLT 224 103/ul Normal 150-450 [facility] Comment on above: Performed By: #### C BC ####[facility] [address] [place], [place] [address]Dr. Sin Watkins RBC 4.96 106/ul Normal 4.20-5.40 [facility] Comment on above: Performed By: #### C BC ####[facility] [address] [place] [address]Dr. Sin Watkins WBC 7.4 103/ul Normal 4.0-11.0 [facility] Comment on above: Performed By: #### C BC ####[facility] [address] [place] [address]Dr. Sin Watkins PREG QUANT HCGon 08-27-2021 HCG QUANT <1 Normal [facility] Comment on above: Performed By: #### P REGQNT, TSH #### [facility] Laboratory [address] [place] [address] [address] Sin Watkins HCG RANGE SEE BELOW Normal [facility] Comment on above: Result Comment: 5-50 0-1 WEEK 40-300 1-2 WEEKS 100-1,000 2-3 WEEKS 500-6,000 3-4 WEEKS 5,000-200,000 1-2 MONTHS 10,000-100,000 2-3 MONTHS 3,000-50,000 2ND TRIMESTER 1,000-50,000 3RD TRIMESTER Performed By: #### P REGQNT, TSH #### [facility] [address] [place] [address] Dr. Sin Watkins PROTIMEon 08-27-2021 INR Coag (PPP) [Relative time] 1.00 {INR} Normal [facility] Comment on above: Performed By: #### P T, PTT #### [facility] [address] [place] [address] Dr. Sin Watkins INR GUIDELINES SEE BELOW Normal [facility] Comment on above: Result Comment: MALATHI RED INR: 2.0 - 3.0 CONDITIONS NOT LISTED BELOW 2.5 - 3.5 FOR PROSTHETIC HEART VALVE REPLACEMENT 2.5 - 3.5 RECURRENT THROMBOSIS Performed By: #### P T, PTT #### [facility] [address] [place] [address] Dr. Sin Watkins PT Coag (PPP) [Time] 10.8 s Normal 9.0-11.6 [facility] Comment on above: Performed By: #### P T, PTT #### [facility] [address] [place] [address] Dr. Sin Watkins PTTon 08-27-2021 aPTT Coag (Bld) [Time] 28.8 s Normal 22.3-36.2 [facility] Comment on above: Performed By: #### P T, PTT #### [facility] [address] [place] [address] Dr. Sin Watkins TSHon 08-27-2021 TSH 0.760 uIU/mL Normal 0.358-3.[address] [facility] Comment on above: Performed By: #### P REGQNT, TSH #### [facility] [address] [place] [address] [address] Sin Watkins TSH RANGE SEE BELOW Normal [facility] Comment on above: Result Comment: <0.3 4 UIU/ml HYPERTHYROID 0.34-5.60 UIU/ml EUTHYROID >5.60 UIU/ml HYPOTHYROID Performed By: #### P REGQNT, TSH #### [facility] [address] [place] [address] Dr. Sin Watkins US PELVIS AND TRANSVAGon [...] FRANCOIS HORTON Date: 2021-08-27 17:53 Normal [facility] MG MAMM SCREEN 3D ESRA CADon 07-29-2021 MG MAMM SCREEN 3D SERA CAD Patient: JESSICA YU Exam Date: 07/29/2021 : 1980 Gender:F Ordering : DR KRISTA GUTIÉRREZ Admission #: [id number] Family : Order #: [id number] CLICK HERE TO VIEW EXAM RADIOLOGY REPORT [...] breast cancer at age 52. LOCATION: [facility] BREAST COMPOSITION: Extremely dense, which lowers the [...] MD on 07/30/2021 at 08:24 Normal [facility] COMPREHENSIVE METABOLIC PANE [place] 06-13-2021 Albumin [Mass/Vol] 4.4 g/dL Normal 3.6-5.1 [facility] Comment on above: Performed By: #### 1 1621, 17423, 5170, 83194 #### [facility] [address], [address] [place], [place] [address] Sweater Operator: Francis Saunders MD Albumin/Globulin [Mass ratio] 1.5 {ratio} Normal 1.0-2.5 [facility] Comment on above: Performed By: #### 1 7306, 22539, 7600, 26770 #### [facility] [address], [address] [place], [place] [address] Sweater Operator: Francis Saunders MD ALP [Catalytic activity/Vol] 82 U/L Normal 31-125 [facility] Comment on above: Performed By: #### 1 7306, 81484, 7600, 52193 #### [facility] of [address], [address] [place] [address] Sweater Operator: Francis Saunders MD ALT [Catalytic activity/Vol] 18 U/L Normal 6-29 [facility] Comment on above: Performed By: #### 1 7306, 27246, 7600, 40991 #### [facility] of [address], [address] [place] [address] Sweater Operator: Francis Saunders MD AST [Catalytic activity/Vol] 18 U/L Normal 10-30 [facility] Comment on above: Performed By: #### 1 7306, 32236, 7600, 73964 #### [facility] of [address], [address] [place] [address] Sweater Operator: Francis Saunders MD Bilirubin [Mass/Vol] 0.6 mg/dL Normal 0.2-1.2 [facility] Comment on above: Performed By: #### 1 7306, 08756, 0, 47211 #### [facility] of [address], [address] [place] [address] Sweater Operator: Francis Saunders MD BUN/CREATININE RATIO NOT APPLICABLE Normal 6-22 [facility] Comment on above: Performed By: #### 1 7306, 98610, 7600, 96946 #### [facility] of [address], [address] [place] [address] Sweater Operator: Francis Saunders MD Calcium [Mass/Vol] 9.6 mg/dL Normal 8.6-10.2 [facility] Comment on above: Performed By: #### 1 7306, 84615, 7600, 19690 #### [facility] of [place] [address] Sweater Operator: Francis Saunders MD Chloride [Moles/Vol] 105 mmol/L Normal 98-110 [facility] Comment on above: Performed By: #### 1 7306, 82734, 7600, 50864 #### [facility] of [place] [address] [place] [address] Sweater Operator: Francis Saunders MD CO2 [Moles/Vol] 25 mmol/L Normal 20-32 [facility] Comment on above: Performed By: #### 1 7306, 97117, 7600, 75409 #### [facility] [place] [address] Sweater Operator: Francis Saunders MD Creatinine [Mass/Vol] 0.75 mg/dL Normal 0.50-1.10 [facility] Comment on above: Performed By: #### 1 7306, 31001, 7600, 31520 #### [facility] [place] [address] Sweater Operator: Francis Saunders MD eGFR NON-AFR. TAIWANESE 98 mL/min/1.73m2 Normal > OR = 60 [facility] Comment on above: Performed By: #### 1 7306, 40668, 0, 08503 #### [facility] [place] [address] Sweater Operator: Francis Saunders MD GFR/1.73 sq M.predicted among blacks MDRD (S/P/Bld) [Vol rate/Area] 114 mL/min/{1.73_m2} Normal > OR = 60 [facility] Comment on above: Performed By: #### 1 7306, 85064, 7600, 51291 #### [facility] [place] [address] Sweater Operator: Francis Saunders MD Globulin (S) [Mass/Vol] 3.0 g/dL Normal 1.9-3.7 [facility] Comment on above: Performed By: #### 1 7306, 85078, 7600, 20523 #### [facility] [place] [address] Sweater Operator: Francis Saunders MD Glucose [Mass/Vol] 103 mg/dL High 65-99 [facility] Comment on above: Result Comment: Fasting reference interval For someone without known diabetes, a glucose value between 100 and 125 mg/dL is consistent with prediabetes and should be confirmed with a follow-up test. Performed By: #### 1 7306, 39037, 7600, 66741 #### [facility] [place] [address] Sweater Operator: Francis Saunders MD Potassium [Moles/Vol] 4.1 mmol/L Normal 3.5-5.3 [facility] Comment on above: Performed By: #### 1 7306, 83909, 7600, 72374 #### [facility] [address], [address] [place] [address] Sweater Operator: Francis Saunders MD Protein [Mass/Vol] 7.4 g/dL Normal 6.1-8.1 [facility] Comment on above: Performed By: #### 1 7306, 26181, 7600, 32533 #### [facility] [place] [address] Sweater Operator: Francis Saunders MD Sodium [Moles/Vol] 139 mmol/L Normal 135-146 [facility] Comment on above: Performed By: #### 1 7306, 77031, 7600, 64035 #### [facility] [place] [address] Sweater Operator: Francis Saunders MD Urea nitrogen [Mass/Vol] 8 mg/dL Normal 7-25 [facility] Comment on above: Performed By: #### 1 7306, 95199, 7600, 22614 #### [facility] [place] [address] Sweater Operator: Francis Saunders MD LIPID PANEL, [facility] 05-19 Cholesterol [Mass/Vol] 393 mg/dL High <200 [facility] Comment on above: Order Comment: FASTI NG:YES FASTING: YES Performed By: #### 1 7306, 03303, 7600, 42104 #### [facility] [place] [address] Sweater Operator: Francis Saunders MD Cholesterol in HDL [Mass/Vol] 39 mg/dL Low > OR = 50 [facility] Comment on above: Order Comment: FASTI NG:YES FASTING: YES Performed By: #### 1 7306, 77697, 7600, 79788 #### [facility] [address] [facility], [address] [place] [phone] Sweater Operator: Francis Saunders MD Cholesterol in LDL [Mass/Vol] [...] about testing for familial hypercholesterolemia, please call [facility] at 1.705.[employer].INFO. Smita T, et al. J National Lipid Association Recommendations [...] LDL-C. Sergio PRICE et al. JOEL. 2013;310(19): 7536-0924 (http://education.Nutmeg.Corengi/faq/XCM117) Performed By: #### 1 7306, 03841, 7600, 44701 #### [facility] [address], [address] [place] [phone] Sweater Operator: Francis Saunders MD Cholesterol.total/C holesterol in HDL [Mass ratio] 10.1 {ratio} High <5.0 [facility] Comment on above: Order Comment: FASTI NG:YES FASTING: YES Performed By: #### 1 7306, 12379, 7600, 47776 #### [facility] [address] [place] [address], [address] [place] [phone] Sweater Operator: Francis Saunders MD NON HDL CHOLESTEROL 354 [...] therapeutic option. Performed By: #### 1 7306, 95431, 7600, 54073 #### [facility] [address], [address] [place] [address] Sweater Operator: Francis Saunders MD Triglyceride [Mass/Vol] 377 mg/dL High <150 [facility] Comment on above: Order Comment: FASTI NG:YES FASTING: YES Result Comment: If a non-fasting specimen was collected, consider repeat triglyceride testing on a fasting specimen if clinically indicated. Smita et al. J. of Clin. Lipidol. 2015;9:129-169. Performed By: #### 1 7306, 27557, 7600, 93923 #### [facility] [place] [address] Sweater Operator: Francis Saunders MD TSH+FREE T4on 06-13-2021 Free T4 [Mass/Vol] 1.0 ng/dL Normal 0.8-1.8 [facility] Comment on above: Performed By: #### 1 7306, 69152, 7600, 17737 #### [facility] [address], [address] [place] [address] Sweater Operator: Francis Saunders MD TSH Qn 0.47 m[IU]/L Normal [facility] Comment on above: Result Comment: Refe rence Range > or = 20 Years 0.40-4.50 Ranges First trimester 0.26-2.66 Second trimester 0.55-2.73 Third trimester 0.43-2.91 Performed By: #### 1 7306, 65297, 7600, 74893 #### [facility] [address] [facility], [address] [place] [address] Sweater Operator: Francis Saunders MD VITAMIN D,25-OH,TOTAL,IAon 0 06-13-2021 [...] D, (D2,D3), LC/MS/MS is recommended: order code 83487 (patients >2yrs). See Note 1 Note 1 For additional information, please refer to http://education.Social Intelligence/faq/DSN176 (This link is being provided for informational/ educational purposes only.) Performed By: #### 1 7306, 40176, 7600, 32112 #### [facility] [address] [facility], [address] [place] [phone] Sweater Operator: Francis Saunders MD Vital Signs Date Time Vital Sign Value Performing Clinician Facility 04-29-2023 09:40-0500 Body height 165.1 cm Agata James Other [facility] Other 04-29-2023 09:40-0500 Body mass index (BMI) [Ratio] 31.08 kg/m2 Agata James Other [facility] Other 04-29-2023 09:40-0500 Body temperature 97.8 [degF] Agata James Other [facility] Other 04-29-2023 09:40-0500 Body weight 84.73 kg Agata James Other [facility] Other 04-29-2023 09:40-0500 Respiratory rate 18 /min Agata James Other [facility] Other 04-29-2023 09:40-0500 SaO2% (BldA) [Mass fraction] 98 % Agata James Other [facility] Other 09-04-2021 11:30-0400 Body height 165.1 cm Yasmin De La Cruz Other [facility] Other 09-04-2021 11:30-0400 Body mass index (BMI) [Ratio] 30.78 kg/m2 Yasmin Malinault Other [facility] Other 09-04-2021 11:30-0400 Body temperature 99.3 [degF] Yasmin Malinault Other [facility] Other 09-04-2021 11:30-0400 Body weight 83.92 kg Yasmin De La Cruz Other [facility] Other 09-04-2021 11:30-0400 Respiratory rate 16 /min Yasmin Malinault Other [facility] Other 09-04-2021 11:30-0400 SaO2% (BldA) [Mass fraction] 98 % Yasmin Malinault Other [facility] Other Encounters Encounter Date Encounter Type Care Provider Facility Start: 11-22-2023 End: 11-22-2023 ambulatory PATRIA MELENDEZ Not Available Start: 08-21-2023 End: 08-21-2023 ambulatory PATRIA MELENDEZ Not Available Start: 08-03-2023 End: 08-04-2023 ambulatory [facility] Start: 08-03-2023 Encounter for genera l adult medical examination without abnormal [facility] Start: 08-03-2023 End: 08-03-2023 ambulatory KRISTA CRUZ [facility] Start: 08-03-2023 Encounter for genera l adult medical examination without abnormal findings KRISTA CURZ [facility] Start: 06-15-2023 Orders Only Krista Gutiérrez EVENTS SOLUTIONS CONSULTANT-TRACTOR TRAILER OPERATOR Work Phone: [facility] Start: 05-16-2023 Orders Only Krista Gutiérrez EVENTS SOLUTIONS CONSULTANT-TRACTOR TRAILER OPERATOR Work Phone: [facility] Start: 04-29-2023 End: 04-29-2023 ambulatory Agata James Other [facility] Other Start: 04-29-2023 Office outpatient vi sit 25 minutes Agata James [facility] Start: 10-29-2021 End: 10-30-2021 Evaluation and management of inpatient DR MICHAEL NELSON Facility:[facility] Start: 10-27-2021 Encounter for preprocedural laboratory examination DR MICHAEL NELSON [facility] Start: 10-26-2021 End: 10-27-[address] MICHAEL NELSON Facility:[facility] Start: 10-26-2021 End: 10-27-2021 Encounter for preprocedural laboratory examination DR MICHAEL NELSON Facility:[facility] Start: 10-21-2021 Encounter for other preprocedural examination DR MICHAEL NELSON [facility] Start: 10-15-2021 End: 10-16-[address] MICHAEL NELSON Facility:[facility] Start: 10-15-2021 End: 10-16-2021 Encounter for other preprocedural examination DR MICHAEL NELSON Facility:[facility] Start: 09-04-2021 End: 09-04-2021 ambulatory Yasmin De La Cruz Other [facility] Other Start: 09-04-2021 Office outpatient ne w 30 minutes Yasmin De La Cruz [facility] Start: 08-27-2021 End: 08-28-[address] KRISTA GUTIÉRREZ Facility:[facility] Start: 07-29-2021 End: 07-30-[address] KRISTA GUTIÉRREZ Facility:[facility] Procedures Date Procedure Procedure Detail Performing Clinician Start: 10-21-2022 Mammography Krista Gutiérrez EVENTS SOLUTIONS CONSULTANT-TRACTOR TRAILER OPERATOR Work Phone: Start: 07-26-2022 Adult depression scr eening assessment Krista Gutiérrez EVENTS SOLUTIONS CONSULTANT-TRACTOR TRAILER OPERATOR Work Phone: Start: 10-29-2021 Resection of Uterus, Open Approach DR KRISTA GUTIÉRREZ Start: 04-23-2018 Microscopic observat ion [Identifier] in Cervix by Cyto stain Krista Gutiérrez EVENTS SOLUTIONS CONSULTANT-TRACTOR TRAILER OPERATOR Work Phone: Plan of Treatment Date Care Activity Detail Author Start: 06-22-2028 DTaP,Tdap and Td Vaccines (2 - Td or Tdap) DTaP,Tdap and Td Vaccines (2 - Td or Tdap) [facility] Start: 10-22-2023 Screening for malign ant neoplasm of breast Mammogram [facility] Start: 07-27-2023 Adult BMI Screening Adult BMI Screen ing [facility] Start: 07-27-2023 Depression Screening Depression Scre ening [facility] Start: 07-27-2023 Tobacco Screening Tobacco Screening [facility] Start: 04-23-2023 Screening for malign ant neoplasm of cervix Pap Smear [facility] Start: 11-18-2022 Influenza vaccination Influenza Vacc ine [facility] Start: 1996 Adult BMI Follow Up Plan Adult BMI Follow Up Plan [facility] Immunizations Immunization Date Immunization Notes Care Provider Fa cility 06-22-2018 tetanus toxoid, redu jorge diphtheria toxoid, and acellular pertussis vaccine, adsorbed Krista Gutiérrez EVENTS SOLUTIONS CONSULTANT-TRACTOR TRAILER OPERATOR Work Phone: [facility] Payers Date Payer Category Payer Unknown [employer] OUT OF STATE PPO/TRUST [id number] 2021-Present [phone] [address] [place] [address] [id number] 1978 Unknown [id number]. 593 1978 Unknown [id number] [id number]. 593 1978 Unknown [id number] 2.16.840.1.751990.3.579.2. 593 1978 Unknown [id number] [id number]. 593 1978 Unknown [id number] 2.16.840.1.634507.3.579.2. 593 1978 Unknown [id number] 2.16.840.1.633108.3.579.2. 593 1978 Unknown [id number] 2.16.840.1.729021.3.579.2. 1286 1978 Unknown [id number] 2.16.840.1.006900.3.579.2. 1286 1978 Unknown [id number] 2.16.840.1.068533.3.579.2. 1259 1978 Unknown [id number] [id number]. [address] [facility] [id number] Social History Date Type Detail Facility Start: 02-25-2022 End: 07-26-2022 Sex Assigned At [facility] Other Start: 07-26-2022 Tobacco smoking status ORIS [facility] History of tobacco use Current smoker [facility] History of tobacco use Cigarette Smoker P [facility] Start: 02-25-2022 End: 07-26-2022 Cigarettes smoked current (pack per day) - Reported 0.[address] [facility] Start: 05-09-2023 Tobacco use and exposure Smokeless tobacco non-user [facility] Start: 07-26-2022 Alcohol intake Current drinker of alcohol (finding) [facility] Adolescent depressio n screening assessment 0 [facility] Start: 1980 Sex Assigned At Female [facility] Start: 07-28-2022 Gender identity Identifies as female gender (finding) [facility] Start: 07-28-2022 Sexual orientation Heterosexual (finding) [facility] Evaluation note 04-29-2023 Note Date & Type [...] treatment plan. Patient left in stable condition. [facility] Other Discharge summary note 10-29-2021 Note Date [...] free and no longer on narcotics. [facility] Clinical Note 10-29-2021 Note Date & Type Note Facility 10-29-2021 Note OPERATIVE NOTE OPERATION DATE: 10/29/2021 PROCEDURE: Total abdominal hysterectomy with cystoscopy. PREOPERATIVE DIAGNOSIS: Menorrhagia, dysmenorrhea, dyspareunia. POSTOPERATIVE DIAGNOSIS: Menorrhagia, dysmenorrhea, dyspareunia. ANESTHESIA: General. SURGEON: Michael Nelson D.O. WORKPLACE TRAINER AND ASSESSOR: HAMLET Lowery URINE OUTPUT: Yellow and clear. [...] with good visualization of the bladder. An O'Vgzhtosf-U-Pzauc[employer] retractor was placed into the patient's abdomen. [...] Recovery Room in stable condition. ?? [facility] Evaluation note 09-04-2021 Note Date & Type Note Facility 09-04-2021 Evaluation note Encounter Date Diagnosis Assessment Notes Aug, Cough (ICD-10 - R05.9) Aug, COVID-19 (ICD-10 - U07.1) Today you tested positive for the COVID virus. This mean you need to follow all CDC quarantine guidelines found at coronavirus.oh io.gov. It [...] care provider if no improvement of symptoms [facility] Other History general Narrative - Reported Note Date & Type Note Facility History general Narrative - Reported Type Medical History Migraines Surgical History x3 Hospitalization History See past surgical hx [facility] [employer] Other History general Narrative - Reported Note Date & Type Note Facility History general Narrative - Reported Type Medical History Migraines Surgical History x3 Surgical History hysterectomy 2021 Hospitalization History See past surgical hx [facility] Other Instructions Note Date & Type Note Facility Instructions Not on filedocumented in this en counter [facility] Instructions Note Date & Type Note Facility Instructions Not on filedocumented in this en counter [facility] Summary Purpose Family History No Family History Records FoundNo Family History Records FoundNo Family History Records FoundNo Family History Records FoundNo Family History Records Found Advance Directives No Advanced Directives Records FoundNo Advanced Directives Records FoundNo Advanced Directives Records FoundNo Advanced Directives Records FoundNo Advanced Directives Records Found Additional Source Comments REASON FOR VISIT (unrecogniz ed section and content) DHALIWAL JEEP, COUGH, CONGESTION SORE THROAT, RUNNY NOSE, INFORMATION SOURCE (unrecogn ized section and content) DATE CREATED AUTHOR 10/05/2021 [facility] DATE CREATED AUTHOR AUTHOR'S ORGANIZ ATION 03/15/2022 [facility] DATE CREATED AUTHOR AUTHOR'S ORGANIZ ATION 08/05/[address] [facility] DATE CREATED AUTHOR AUTHOR'S ORGANIZ ATION 08/06/2023 [facility] DATE CREATED AUTHOR AUTHOR'S ORGANIZ ATION 11/23/2023 [facility] [employer] Care Teams (unrecognized sec tion and content) Crew Scheduler Relationship Specialty Start Date End Date Ryan Armijo DO [address] [place] [address] PCP - General Family Medicine 01/18/22 Crew Scheduler Relationship Specialty Start Date End Date Ryan Armijo DO [address] [place] [address] PCP - General Family Medicine 01/18/22 FOR [...] BE BASED ON THE PRIMARY CLINICAL RECORDS. [email or web address] [facility]. provides no warranty or guarantee of the accuracy or completeness of information in this document.
== END 2023-11-24 07:49 | disposition home or self-care (01) ==
PROVIDERS: PCP Family Medicine; Visit Provider Family Medicine
DX: Z12.31 Encounter for screening mammogram for malignant neoplasm of breast (principal); Z80.3 Family history of malignant neoplasm of breast
CPT/HCPCS: 77063; 77067

== ENCOUNTER 2024-05-14 14:59 | Outpatient (REF) | payer BC, SELFPAY ==
--- OUTSIDE RECORDS SUMMARY | 2024-05-14 15:18 | XMS_ITS | CCD ---
Author Organization [facility] CliniSymo Care Team Providers Care Escalator Mechanic Name Role Phone Yasmin De La Cruz Unavailable DEZ, DR KRISTA Cooper Admitting Unavailable KUNS, DR KRISTA Cooper Attending Unavailable KUNS, DR KRISTA Cooper Primary Care Unavailable WEST, DR FRANCOIS Pearson Consulting Unavailable KUNS, DR [...] FURLONG, DR RYAN Mcdaniel Primary Care Unavailable HORNESABINA Consulting Unavailable KILEY, DR RODRIGUEZ Admitting Unavailable KILEY, DR RODRIGUEZ Attending Unavailable FURLONG, DR RYAN Mcdaniel Primary Care Unavailable KILEY, DR RODRIGUEZ Consulting Unavailable KILEY, DR RODRIGUEZ Admitting Unavailable KILEY, DR RODRIGUEZ Attending Unavailable FURLONG, DR RYAN Mcdaniel Primary Care Unavailable KILEY, DR RODRIGUEZ Consulting Unavailable KILEY, DR RODRIGUEZ Procedure Practitioner Unavailab KAMRYN Aguirre Consulting Unavailable ANTONIO STANLEY Consulting Unavailable Agata James Unavailable KRISTA GUTIÉRREZ Referring Unavailable RYAN ARMIJO Primary Care Unavailable KRISTA GUTIÉRREZ Attending Unavailable RYAN ARMIJO Referring Unavailable LUZ MARINA, RYAN Mcdaniel Primary Care Unavailable RYAN ARMIJO Referring Unavailable LUZ MARINA, RYAN Mcdaniel Primary Care Unavailable KEY COX Attending Unavailable Ryan Armijo MD Primary Care Provider [phone] PATRIA ALEXIS Attending Unavailable PATRIA ALEXIS Attending Unavailable PATRIA ALEXIS Attending Unavailable Ryan Armijo DO Primary Care Provider [phone] Allergies Allergy Classification Reported Allergen(s) Allergy Type Date of Onset Reaction(s) Facility (19 sources) gabapentin; Translations: [GABAPENTIN] Drug Allergy 2 Unknown, Other (See Comments) [facility] Repository (1 source) gabapentin Drug Allergy [facility] Repository Medications Current Medications Medication Drug Class(es) Dates Sig (Normalized) Sig (Original) acyclovir 50 mg/ml / hydrocortisone 10 mg/ml topical cream (10 sources) Herpesvirus Nucleoside Analog DNA Polymerase Inhibitor, [...] % topical cream 0 05/16/2023 Discontinued (Reorder) onabotulinumtoxina 200 unt injection (7 sources) Acetylcholine Release Inhibitor Start: 02-20-2024 End: 02-20-2024 onabotulinumtoxinA (Botox) injection 155 Units Start: 02-20-2024 End: 02-20-2024 inject 155 [IU] by intramuscular injection once 155 Units, Intramuscular, Once, On Mon02/20/24 at 1100, For 1 dose, Charging context for this clinic-administered medication: Medically Necessary/Insurance Start: 11-22-2023 End: 11-22-2023 onabotulinumtoxinA (Botox) i njection 155 Units Start: 11-22-2023 End: 11-22-2023 inject 155 [IU] by intramuscular injection once 155 Units, Intramuscular, Once, On Mon11/22/23 at 1145, For 1 dose, Charging context for this clinic-administered medication: Medically Necessary/Insurance cholecalciferol 0.125 mg oral capsule (16 sources) Vitamin D Start: 07-26-2023 take 1 capsule by mouth once daily cholecalciferol (Vitamin D-3) 125 MCG (5000 UT) capsule Take 5,000 Units by mouth Daily 07/26/2023 Active Start: 02-25-2022 End: 07-26-2023 cholecalciferol, vitamin D3, (VITAMIN D3) 5,000 units capsule TAKE 1 CAPSULE IN THE MORNING 100 capsule 3 07/26/2023 Active cyclobenzaprine hydrochloride 10 mg oral tablet (4 sources) Muscle Relaxant End: 08-03-2023 take 1 tablet by mouth three times daily cyclobenzaprine (FLEXERIL) 10 mg tablet cyclobenzaprine 10 mg tablet TAKE 1 TABLET BY MOUTH THREE TIMES DAILY 08/03/2023 Discontinued (Therapy completed) dextromethorphan hydrobromide 1.5 mg/ml / pyrilamine maleate 1.5 mg/ml oral solution (1 source) Uncompetitive B-rjfknx-B-aspartat e Receptor Antagonist, Sigma-1 Agonist Start: 04-29-2023 take 10 mL by mouth every eight hours Jennings DM 7.5-7.5 MG/5ML 10 mL Orally every 8 hours for 5 days Apr, Active diclofenac sodium 75 mg delayed release oral tablet (4 sources) Nonsteroidal Anti-inflammatory Drug End: 08-03-2023 take 1 tablet by mouth twice daily diclofenac (VOLTAREN) 75 mg EC tablet diclofenac sodium 75 mg tablet,delayed release TAKE 1 TABLET BY MOUTH TWICE DAILY 08/03/2023 Discontinued (Therapy completed) fluticasone propionate 0.5 mg/ml topical cream (8 sources) Corticosteroid fluticasone propionate (CUTIVATE) 0.05 % cream fluticasone propionate 0.05 % topical cream APPLY TO THE AFFECTED AREA(S) on back and chest at NIGHT FOR 1 WEEK Active icosapent ethyl 1000 mg oral capsule (16 sources) Start: 07-27-2022 End: 05-14-2024 take 2 capsules by mouth in the morning Icosapent Ethyl (Vascepa) 1 g capsule Take 2 capsules by mouth in the morning and 2 capsules in the evening. Take with meals. 11/29/2022 05/14/2024 Discontinued (Other) LORazepam 0.5 mg oral tablet (11 sources) Benzodiazepine Start: 08-03-2023 End: 08-03-2023 take 1 tablet by mouth once daily as needed for anxiety LORazepam (ATIVAN) 0.5 mg tablet Indications: Anxiety Take 1 tablet (0.5 mg total) by mouth daily as needed for anxiety. 30 tablet 1 08/03/2023 Active take 1 tablet by mouth once maryuri y LORazepam (ATIVAN) 0.5 mg tablet lorazepam 0.5 mg tablet TAKE 1 TABLET BY MOUTH DAILY 0 Active methylPREDNISolone 4 mg oral tablet (3 sources) Corticosteroid Start: 09-04-2021 methylPREDNISolone 4 MG as directed Orally for 6 Apr, Active naratriptan 2.5 mg oral tablet (17 sources) Serotonin-1b and Serotonin-1d Receptor Agonist Start: 01-31-2023 naratriptan (Amerge) 2.5 MG tablet Take 2.5 mg by mouth 1 (one) time if needed May repeat dose (1 tablet) once after 4 hours if migraine persists. No more than 2 doses in 24 hours 01/31/2023 Active Start: 02-15-2022 naratriptan (A MERGE) 2.5 mg tablet 02/15/2022 Active ondansetron 4 mg disintegrating oral tablet (15 sources) Serotonin-3 Receptor Antagonist Start: 02-15-2022 ondansetron ODT (ZOFRAN ODT) 4 mg disintegrating tablet 02/15/2022 Active rosuvastatin calcium 20 mg oral tablet (20 sources) HMG-CoA Reductase Inhibitor Start: 10-10-2023 take 1 tablet by mouth once daily rosuvastatin (CRESTOR) 20 mg tablet Take 1 tablet (20 mg total) by mouth nightly. 90 tablet 2 10/10/2023 Active Start: 09-09-2022 End: 05-14-2024 take 1 tablet by mouth in the morning rosuvastatin (Crestor) 10 MG tablet Take 1 tablet by mouth in the morning. 09/09/2022 05/14/2024 Discontinued (Other) Rosuvastatin Ruy cium Active sertraline 50 mg oral tablet (1 source) Serotonin Reuptake Inhibitor Start: 01-04-2024 take 1 tablet by mouth in the morning sertraline (ZOLOFT) 50 mg tablet Take 1 tablet (50 mg total) by mouth in the morning. 30 tablet 1 01/04/2024 Active valACYclovir 1000 mg oral tablet (12 sources) Herpesvirus Nucleoside Analog DNA Polymerase Inhibitor, [...] before bedtime. 4 tablet 5 07/29/2022 Active End: 08-03-2023 valACYclovir (VALTREX) 1000 mg tablet valacyclovir 1 gram tablet 08/03/2023 Discontinued (Duplicate Listing) Vitamin D (2 sources) Vitamin D Active [...] Date Documented Da te Episodic/Chronic Anxiety disorders (20 sources) Anxiety disorder, unspecified; Translations: [Anxiety] Onset: 11-04-2021 08-18-2023 Chronic Disorders of lipid metabolism (18 sources) Pure hyperglyceridemia; Translations: [Mixed hyperlipidemia] Onset: 06-13-2021 02-25-2022 Chronic Headache; including migraine (20 sources) Migraine; Translations: [Migraine] Onset: 02-25-2022 08-18-2023 Chronic Immunizations and screening for infectious disease (2 sources) Encounter for immunization; Translations: [Influenza vaccination given] Onset: 01-04-2024 01-04-2024 Episodic Menstrual disorders (5 sources) Excessive and frequent menstruation with regular cycle; Translations: [Dysmenorrhea, unspecified] Onset: 10-27-2021 Chronic Mood disorders (10 sources) Depression; Translations: [Depressive disorder] Onset: 02-25-2022 Resolved: 07-26-2022 07-26-2022 Chronic Mood disorders (9 sources) Mood disorders; Translations: [Depression, unspecified] Onset: 07-26-2022 Resolved: 01-04-2024 07-26-2022 Nausea and vomiting (2 sources) Vomiting; Translations: [Vomiting] Episodic Nutritional deficiencies (8 sources) Vitamin D deficiency; Translations: [Vitamin D deficiency, unspecified] Onset: 05-07-2019 02-25-2022 Chronic Other female genital disorders (1 source) Unspecified dyspareunia; Translations: [UNSPECIFIED DYSPAREUNIA] Onset: 11-04-2021 Chronic Other lower respiratory disease (2 sources) Cough; Translations: [Cough] Episodic Other screening for suspected conditions (not mental disorders or infectious disease) (6 sources) Encounter for screening mammogram for malignant neoplasm of breast; Translations: [Patient encounter status] Onset: 07-29-2021 Episodic Other upper respiratory infections (2 sources) Acute laryngitis; Translations: [Acute upper respiratory infection, unspecified] Onset: 09-04-2021 Resolved: 09-04-2021 Episodic Substance-related disorders (3 sources) Nicotine dependence, cigarettes, uncomplicated; Translations: [Nicotine dependence, unspecified, uncomplicated] Onset: 11-04-2021 01-04-2024 Chronic Unclassified (1 source) CONTACT W/AND (SUSP) EXPOS COVID-19; Translations: [CONTACT W/AND (SUSP) EXPOS COVID-19] Onset: 10-27-2021 Unclassified (1 source) Annual Exam Onset: 08-03-2023 Past or Other Problems Problem Classification Problem Date Documented Da te Episodic/Chronic Allergic reactions (4 sources) Allergic contact dermatitis, unspecified cause; Translations: [ALLERG CONTACT DERMATITS UNS CAUSE] Onset: 08-27-2021 Episodic Other aftercare (1 source) Other usp (current) drug therapy; Translations: [OTH MONITOR TECH CURRENT DRUG THERAPY] Onset: 11-04-2021 Episodic Other nutritional; endocrine; and metabolic disorders (1 source) Body mass index (BMI) 29.0-29.9, adult; Translations: [Body mass index (BMI) 29.0-29.9, adult] Onset: 08-03-2023 Episodic Other nutritional; endocrine; and metabolic disorders (1 source) Overweight in adulthood with body mass index of 25 or more but less than 30; Translations: [Body mass index (BMI) 29.0-29.9, adult] 08-03-2023 Episodic Ovarian cyst (8 sources) Cyst of ovary; Translations: [Unspecified ovarian cyst, unspecified side] Onset: 02-25-2022 02-25-2022 Episodic Residual codes; unclassified (1 source) Family history of malignant neoplasm of breast; Translations: [FAMILY HX MALIG NEOPLASM OF BREAST] Onset: 08-03-2021 Episodic Unclassified (1 source) Cough R05.9 Onset: 09-04-2021 Resolved: 09-04-2021 Unclassified (5 sources) Onset: 08-03-2023 08-03-2023 Viral infection (10 sources) Herpesviral vesicular dermatitis; 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] Onset: 11-24-2017 02-25-2022 Episodic Viral infection (1 source) COVID-19 Onset: 09-04-2021 Resolved: 09-04-2021 Results Test Name Value Interpretation Reference Range Facility COMPREHENSIVE METABOLIC PANE [place] 08-03-2023 Albumin [Mass/Vol] 4.2 g/dL Normal 3.2-5.3 [facility] Comment on above: Performed By: #### Manny ORR 92461-0 #### [facility] ([id number]) [address], [address] [place] [address] ALP [Catalytic activity/Vol] 67 U/L Normal 39-130 [facility] Comment on above: Performed By: #### Manny ORR 87582-2 #### [facility] ([id number]) [address], [address] [place] [address] ALT [Catalytic activity/Vol] 19 U/L Normal 0-31 [facility] Comment on above: Performed By: #### Manny ORR, 74562-8 #### [facility] ([id number]) [address], [address] [place] [address] Anion gap [Moles/Vol] 7 mmol/L Normal 5-15 [facility] Comment on above: Performed By: #### Manny ORR, 20542-6 #### [facility] ([id number]) [address], [address] [place] [address] AST [Catalytic activity/Vol] 19 U/L Normal 0-41 [facility] Comment on above: Performed By: #### Manny ORR, 29042-1 #### [facility] ([id number]) [address], [address] [place] [address] Bilirubin [Mass/Vol] 0.7 mg/dL Normal 0.3-1.2 [facility] Comment on above: Performed By: #### Manny ORR 16164-5 #### [facility] ([id number]) [address], [address] [place] [address] Calcium [Mass/Vol] 9.4 mg/dL Normal 8.5-10.5 [facility] Comment on above: Performed By: #### Manny ORR, 03526-8 #### [facility] ([id number]) [address], [address] [place] [address] Chloride [Moles/Vol] 106 mmol/L Normal 98-109 [facility] Comment on above: Performed By: #### Manny ORR, 45014-4 #### [facility] ([id number]) [address], [address] [place] [address] CO2 [Moles/Vol] 27 mmol/L Normal 22-32 [facility] Comment on above: Performed By: #### Manny ORR, 12003-6 #### [facility] ([id number]) [address], [address] [place] [address] Creatinine [Mass/Vol] 0.79 mg/dL Normal 0.40-1.00 [facility] Comment on above: Result Comment: METH OD TRACEABLE TO IDMS STANDARD Performed By: #### Manny ORR, 92779-4 #### [facility] ([id number]) [address], [address] [place] [address] eGFR (CKD-EPI) NON-RACE DEPENDENT >90 Normal >59 [facility] Comment on above: Result Comment: Reported eGFR is based on the CKD-EPI 2021 equation that does not use a race coefficient. Performed By: #### Manny ORR, 81452-4 #### [facility] ([id number]) [address], [address] [place] [address] Glucose [Mass/Vol] 102 mg/dL High 65-99 [facility] Comment on above: Performed By: #### Manny ORR, 84261-8 #### [facility] ([id number]) [address], [address] [place] [address] Potassium [Moles/Vol] 3.9 mmol/L Normal 3.5-5.0 [facility] Comment on above: Performed By: #### Manny ORR, 77599-5 #### [facility] ([id number]) [address], [address] [place] [address] Protein [Mass/Vol] 7.4 g/dL Normal 6.0-8.0 [facility] Comment on above: Performed By: #### Manny ORR, 82526-0 #### [facility] ([id number]) [address], [address] [place] [address] Sodium [Moles/Vol] 140 mmol/L Normal 134-146 [facility] Comment on above: Performed By: #### Manny ORR, 61758-1 #### [facility] ([id number]) [address], [address] [place] [address] Urea nitrogen [Mass/Vol] 11 mg/dL Normal 5-23 [facility] Comment on above: Performed By: #### Manny ORR, 93688-5 #### [facility] ([id number]) [address], [address] [place] [address] Lipid 1996 panelon 4 Cholesterol [Mass/Vol] 124 mg/dL Low 150-200 [facility] Comment on above: Performed By: #### Manny ORR, 56521-4 #### [facility] ([id number]) [address], [address] [place] [address] Cholesterol in HDL [Mass/Vol] 41 mg/dL Normal >39 [facility] Comment on above: Result Comment: HDL <40 mg/dL - High Risk HDL > or = 40mg/dL- Desirable HDL >60 mg/dL - Negative Risk Performed By: #### C DOMINGA, 71565-4 #### [facility] ([id number]) [address], [address] [place] [address] Cholesterol in LDL [Mass/Vol] 50 mg/dL Normal <130 [facility] Comment on above: Result Comment: LDL <100 mg/dL - Desirable LDL >160 mg/dL - High Risk Performed By: #### Manny ORR, 45064-6 #### [facility] ([id number]) [address] [place] [address] Cholesterol in VLDL [Mass/Vol] 33 mg/dL High 0-30 [facility] Comment on above: Performed By: #### Manny ORR, 74553-9 #### [facility] ([id number]) [address], [address] [place] [address] CHOLESTEROL:HDL 3.0 Normal 1.0-5.0 [facility] Comment on above: Performed By: #### Manny ORR, 46175-8 #### [facility] ([id number]) [address], [address] [place] [address] Triglyceride [Mass/Vol] 165 mg/dL High 27-150 [facility] Comment on above: Performed By: #### Manny ORR, 45452-9 #### [facility] ([id number]) [address], [address] [place] [address] BUNon 10-30-2021 Urea nitrogen [Mass/Vol] 7.0 mg/dL Normal 7.0-18.0 [facility] Comment on above: Performed By: #### C SKYLAR DELGADILLO #### [facility] [address] [address] [address] Sin Watkins CBC AUTO DIFFon 10-30-2021 BASO # 0.0 103/ul Normal 0.0-0.1 [facility] Comment on above: Performed By: #### C BC #### [facility] [address] [place] [address] Dr. Sin Watkins Basophils/100 WBC (Bld) 0.1 % Critically low 0.2-2.0 [facility] Comment on above: Performed By: #### C BC #### [facility] [address] [place] [address] Dr. Sin Watkins EO # 0.0 103/ul Normal 0.0-0.7 [facility] Comment on above: Performed By: #### C BC #### [facility] [address] [place] [address] Dr. Sin Watkins Eosinophils/100 WBC (Bld) 0.0 % Critically low 0.9-7.0 [facility] Comment on above: Performed By: #### C BC #### [facility] [address] [place] [address] Dr. Sin Watkins Erythrocyte distribution width (RBC) [Ratio] 12.2 % Normal 11.0-15.0 [facility] Comment on above: Performed By: #### C BC #### [facility] [address] [place] [address] Dr. Sin Watkins Hematocrit (Bld) [Volume fraction] 39.3 % Normal 36.0-48.0 [facility] Comment on above: Performed By: #### C BC #### [facility] [address] [place] [address] Dr. Sin Watkins Hemoglobin (Bld) [Mass/Vol] 13.0 g/dL Normal 12.0-16.0 [facility] Comment on above: Performed By: #### C BC #### [facility] [address] [place] [address] Dr. Sin Watkins IG # 0.08 10e3/ul Critically high 0.00-0.03 [facility] Comment on above: Performed By: #### C BC #### [facility] [address] [place] [address] Dr. Sin Watkins IG % 0.5 % Normal 0.0-0.5 [facility] Comment on above: Performed By: #### C BC #### [facility] [address] [place] [address] Dr. Sin Watkins LYMPH # 1.7 103/ul Normal 1.2-3.8 [facility] Comment on above: Performed By: #### C BC #### [facility] [address] [place] [address] Dr. Sin Watkins Lymphocytes/100 WBC (Bld) 10.3 % Critically low 20.5-60.0 [facility] Comment on above: Performed By: #### C BC #### [facility] [address] [place] [address] Dr. Sin Watkins MANUAL DIFF REQ NO Normal [facility] Comment on above: Performed By: #### C BC #### [facility] [address] [place] [address] Dr. Sin Watkins MCH (RBC) [Entitic mass] 31.3 pg Normal 26.7-34.0 [facility] Comment on above: Performed By: #### C BC #### [facility] [address] [place] [address] Dr. Sin Watkins MCHC (RBC) [Mass/Vol] 33.1 g/dL Normal 29.9-35.2 [facility] Comment on above: Performed By: #### C BC #### [facility] [address] [place] [address] Dr. Sin Watkins MCV (RBC) [Entitic vol] 94.7 fL Normal 81.0-99.0 [facility] Comment on above: Performed By: #### C BC #### [facility] [address] [place] [address] Dr. Sin Watkins MONO # 0.7 103/ul Normal 0.3-0.8 [facility] Comment on above: Performed By: #### C BC #### [facility] [address] [place] [address] Dr. Sin Watkins Monocytes/100 WBC (Bld) 4.3 % Normal 1.7-12.0 [facility] Comment on above: Performed By: #### C BC #### [facility] [address] [place] [address] Dr. Sin Watkins NEUT # 14.4 103/ul Critically high 1.4-6.5 [facility] Comment on above: Performed By: #### C BC #### [facility] [address] [address] [address] Sin Watkins Neutrophils/100 WBC (Bld) 84.8 % Critically high 43.0-75.0 [facility] Comment on above: Performed By: #### C BC #### [facility] [address] [place] [address] Dr. Sin Watkins Platelet mean volume (Bld) [Entitic vol] 11.6 fL Normal 9.5-13.5 [facility] Comment on above: Performed By: #### C BC #### [facility] [address] [place] [address] Dr. Sin Watkins PLT 182 103/ul Normal 150-450 [facility] Comment on above: Performed By: #### C BC #### [facility] [address] [place] [address] Dr. Sin Watkins RBC 4.15 106/ul Critically low 4.20-5.40 [facility] Comment on above: Performed By: #### C BC #### [facility] [address] [place] [address] Dr. Sin Watkins WBC 16.9 103/ul Critically high 4.0-11.0 [facility] Comment on above: Performed By: #### C BC #### [facility] [address] [place] [address] Dr. Sin Watkins CREATININEon 10-30-2021 Creatinine [Mass/Vol] 0.72 mg/dL Normal 0.55-1.02 [facility] Comment on above: Performed By: #### C LEONA, BUN #### [facility] [address] [place] [address] Dr. Sin Watkins EGFR-AF GEORGIAN >60 Normal >=60 [facility] Comment on above: Performed By: #### C LEONA, BUN #### [facility] [address] [address] [address] Sin Watkins EGFR-NON AF GEORGIAN >60 Normal >=60 [facility] Comment on above: Performed By: #### C LEONA, BUN #### [facility] [address] [address] [address] Sin Watkins CBC AUTO DIFFon 10-29-2021 BASO # 0.0 103/ul Normal 0.0-0.1 [facility] Comment on above: Performed By: #### C BC ####[facility] [address] [address]DrMateo Watkins Basophils/100 WBC (Bld) 0.3 % Normal 0.2-2.0 [facility] Comment on above: Performed By: #### C BC ####[facility] [address] [place], [place] [address]Dr. Sin Watkins EO # 0.1 103/ul Normal 0.0-0.7 [facility] Comment on above: Performed By: #### C BC ####[facility] [address] [place], [place] [address]DrMateo Watkins Eosinophils/100 WBC (Bld) 1.5 % Normal 0.9-7.0 [facility] Comment on above: Performed By: #### C BC ####[facility] [address] [address]DrMateo Watkins Erythrocyte distribution width (RBC) [Ratio] 12.2 % Normal 11.0-15.0 [facility] Comment on above: Performed By: #### C BC ####[facility] [address] [place], [place] [address]DrMateo Watkins Hematocrit (Bld) [Volume fraction] 44.8 % Normal 36.0-48.0 [facility] Comment on above: Performed By: #### C BC ####[facility] [address] [place], [place] [address]DrMateo Watkins Hemoglobin (Bld) [Mass/Vol] 15.5 g/dL Normal 12.0-16.0 [facility] Comment on above: Performed By: #### C BC ####[facility] [address] [address]DrMateo Watkins IG # 0.02 10e3/ul Normal 0.00-0.03 [facility] Comment on above: Performed By: #### C BC ####[facility] [address] [address]DrMateo Watkins IG % 0.3 % Normal 0.0-0.5 [facility] Comment on above: Performed By: #### C BC ####[facility] [address] [address]DrMateo Watkins LYMPH # 3.1 103/ul Normal 1.2-3.8 [facility] Comment on above: Performed By: #### C BC ####[facility] [address] [place] [address]DrMateo Watkins Lymphocytes/100 WBC (Bld) 41.8 % Normal 20.5-60.0 [facility] Comment on above: Performed By: #### C BC ####[facility] [address] [place] [address]DrMateo Watkins MANUAL DIFF REQ NO Normal [facility] Comment on above: Performed By: #### C BC ####[facility] [address] [place] [address]DrMateo Watkins MCH (RBC) [Entitic mass] 31.6 pg Normal 26.7-34.0 [facility] Comment on above: Performed By: #### C BC ####[facility] [address] [place] [id number] Watkins MCHC (RBC) [Mass/Vol] 34.6 g/dL Normal 29.9-35.2 [facility] Comment on above: Performed By: #### C BC ####[facility] [address] [place] [id number] Watkins MCV (RBC) [Entitic vol] 91.4 fL Normal 81.0-99.0 [facility] Comment on above: Performed By: #### C BC ####[facility] X[address]fo[address] [place] [address]Dr. Sin Watkins MONO # 0.5 103/ul Normal 0.3-0.8 [facility] Comment on above: Performed By: #### C BC ####[facility] [address]erv[address] [place] [address]Dr. Sin Watkins Monocytes/100 WBC (Bld) 7.3 % Normal 1.7-12.0 [facility] Comment on above: Performed By: #### C BC ####[facility] [address] [place], [place] [address]Dr. Sin Watkins NEUT # 3.6 103/ul Normal 1.4-6.5 [facility] Comment on above: Performed By: #### C BC ####[facility] [address]ax[address] [place], [place] [address]Dr. Sin Roland Neutrophils/100 WBC (Bld) 48.8 % Normal 43.0-75.0 [facility] Comment on above: Performed By: #### C BC ####[facility] X[address] [place], [place] [address]Dr. Sin Watkins Platelet mean volume (Bld) [Entitic vol] 10.7 fL Normal 9.5-13.5 [facility] Comment on above: Performed By: #### C BC ####[facility] K[address] [place], [place] [address]Dr. Sin Watkins PLT 192 103/ul Normal 150-450 [facility] Comment on above: Performed By: #### C BC ####[facility] Vtnkjmib[address] [place], [place] [address]Dr. Sin Watkins RBC 4.90 106/ul Normal 4.20-5.40 [facility] Comment on above: Performed By: #### C BC ####[facility] [address] [place], [place] [address]Dr. Sin Watkins WBC 7.4 103/ul Normal 4.0-11.0 [facility] Comment on above: Performed By: #### C BC ####[facility] [address] [place], [place] [address]Zx. Sin Watkins PREG HCG QUALon 10-29-2021 , QUAL Negative Normal NEGATIVE [facility] Comment on above: Performed By: #### P REG #### [facility] [address] [place], [place] [address] Dr. Sin Watkins Covid-19 PCR (CVDTB)on SARS-CoV-2 (COVID-19) RNA AVTAR+probe Ql (Unsp spec) Not detected Normal NOT DETECTED [facility] Comment on above: Result Comment: This test is not yet approved or cleared by the [place] FDA. When there are no FDA-approved or cleared tests available, and other criteria are met, FDA can make tests available under an emergency access mechanism called an Emergency Use Authorization (EUA). The EUA for this test is supported by the Trial Management Associate of Health and Human Service's (HHS's) declaration [...] consistent with SARS-CoV-2. Performed By: #### C VDTBH ####[facility] [address] [place], [place] [address]Pr. Sin Watkins TYPE AND SCREENon 10-26-2021 TYPE AND SCREEN Negative Normal [facility] Comment on above: Performed By: #### T NS ####[facility] [address] [place], [place] [address]Gu. Sin Watkins DRUG TOX MONITORING 5 W/CONF , URINEon 09-29-2021 Amphetamines Negative Normal <500 [facility] Comment on above: Performed By: #### 9 1485 #### [facility] [address], [address] [place] [address] Associate Dentist: Francis Saunders MD Benzodiazepines Negative Normal <100 [facility] Comment on above: Performed By: #### 9 1485 #### [facility] of [address], [address] [place] [address] Associate Dentist: Francis Saunders MD Buprenorphine Negative Normal <5 [facility] Comment on above: Performed By: #### 9 1485 #### [facility] of [address], [address] [place] [address] Associate Dentist: Francis Saunders MD Cocaine Metabolite Negative Normal <150 [facility] Comment on above: Performed By: #### 9 1485 #### [facility] of [address], [address] [place] [address] Associate Dentist: Francis Saunders MD COMMENT Normal [facility] Comment on above: Result Comment: See Note 1 Note 1 This drug testing is for medical treatment only. Analysis was performed as non-forensic testing and these results should be used only by healthcare providers to render diagnosis or treatment, or to monitor progress of medical conditions. For assistance with interpreting these drug results, please contact a [facility] Specialist: [phone] ( ), M-F, 8am-6pm EST. Performed By: #### 9 1485 #### [facility] of [address], [address] [place] [address] Associate Dentist: Francis Saunders MD Heroin Metabolite Negative Normal <10 [facility] Comment on above: Performed By: #### 9 1485 #### [facility] of [address], [address] [place] [address] Associate Dentist: Francis Saunders MD Marijuana Metabolite 20 Negative Normal <20 [facility] Comment on above: Performed By: #### 9 1485 #### [facility] of [address], [address] [place] [address] Associate Dentist: Francis Saunders MD Methadone Metabolite Negative Normal <100 [facility] Comment on above: Performed By: #### 9 1485 #### [facility] of [facility] [address], [address] [place] [address] Associate Dentist: Francis Saunders MD Opiates Negative Normal <100 [facility] Comment on above: Performed By: #### 9 1485 #### [facility] of [facility] [address], [address] [place] [address] Associate Dentist: Francis Saunders MD Oxycodone Negative Normal <100 [facility] Comment on above: Performed By: #### 9 1485 #### [facility] of [facility] [address], [address] [place] [phone] Associate Dentist: Francis Saunders MD Phencyclidine Negative Normal <25 [facility] Comment on above: Performed By: #### 9 1485 #### [facility] of [facility] [address], [address] [place] [phone] Associate Dentist: Francis Saunders MD SARS-CoV-2 (COVID-19) RNA NA A+probe Ql (Resp)on 09-04-2021 SARS-CoV-2 (COVID-19) RNA AVTAR+probe Ql (Unsp spec) Positive [facility] Other ANDIE by IFAon 08-30-2021 Antinuclear Antibodies, IFA Negative Normal [facility] Comment on above: Result Comment: Nega tive <1:80 Borderline 1:80 Positive >1:80 ICAP nomenclature: AC-0 For more information about Hep-2 cell patterns use ANApatterns.org, the official website for the International Consensus on Antinuclear Antibody (ANDIE) Patterns (ICAP). Performed By: #### A NAIFA ####[facility] [address] [place], [place] [address]Zw. Sin Watkins CBC AUTO DIFFon 08-27-2021 BASO # 0.0 103/ul Normal 0.0-0.1 [facility] Comment on above: Performed By: #### C BC ####[facility] [address] [place], [place] [address]Vi. Sin Watkins Basophils/100 WBC (Bld) 0.1 % Critically low 0.2-2.0 [facility] Comment on above: Performed By: #### C BC ####[facility] [address] [place], [place] [address]Dr. Sin Watkins EO # 0.1 103/ul Normal 0.0-0.7 [facility] Comment on above: Performed By: #### C BC ####[facility] [address] [place], [place] [address]Dr. Sin Watkins Eosinophils/100 WBC (Bld) 1.2 % Normal 0.9-7.0 [facility] Comment on above: Performed By: #### C BC ####[facility] Fsm[address] [place], [place] [address]Dr. Monairasema Watkins Erythrocyte distribution width (RBC) [Ratio] 12.4 % Normal 11.0-15.0 [facility] Comment on above: Performed By: #### C BC ####[facility] [address] [place], [place] [address]Dr. Sin Watkins Hematocrit (Bld) [Volume fraction] 46.1 % Normal 36.0-48.0 [facility] Comment on above: Performed By: #### C BC ####[facility] Pl[address] [place], [place] [address]Dr. Monairasema Watkins Hemoglobin (Bld) [Mass/Vol] 15.6 g/dL Normal 12.0-16.0 [facility] Comment on above: Performed By: #### C BC ####[facility] Gnkucrq[address] [place], [place] [address]Dr. Sin Watkins IG # 0.02 10e3/ul Normal 0.00-0.03 [facility] Comment on above: Performed By: #### C BC ####[facility] [address]rf[address] [place], [place] [address]Dr. Sin Watkins IG % 0.3 % Normal 0.0-0.5 [facility] Comment on above: Performed By: #### C BC ####[facility] Awyef[address] [place], [place] [address]Dr. Sin Watkins LYMPH # 2.1 103/ul Normal 1.2-3.8 [facility] Comment on above: Performed By: #### C BC ####[facility] [address] [place] [address]Dr. Sin Watkins Lymphocytes/100 WBC (Bld) 28.7 % Normal 20.5-60.0 [facility] Comment on above: Performed By: #### C BC ####[facility] [address] [place] [address]Dr. Sin Watkins MANUAL DIFF REQ NO Normal [facility] Comment on above: Performed By: #### C BC ####[facility] [address] [place] [id number]. Sin Watkins MCH (RBC) [Entitic mass] 31.5 pg Normal 26.7-34.0 [facility] Comment on above: Performed By: #### C BC ####[facility] [address] [place], [place] [address]Dr. Sin Watkins MCHC (RBC) [Mass/Vol] 33.8 g/dL Normal 29.9-35.2 [facility] Comment on above: Performed By: #### C BC ####[facility] [address] [place], [place] [address]Dr. Sin Watkins MCV (RBC) [Entitic vol] 92.9 fL Normal 81.0-99.0 [facility] Comment on above: Performed By: #### C BC ####[facility] [address] [place] [address]Dr. Sin Watkins MONO # 0.4 103/ul Normal 0.3-0.8 [facility] Comment on above: Performed By: #### C BC ####[facility] [address]xi[address] [place], [place] [address]Dr. Sin Watkins Monocytes/100 WBC (Bld) 5.7 % Normal 1.7-12.0 [facility] Comment on above: Performed By: #### C BC ####[facility] V[address] [place], [place] [address]Dr. Sin Watkins NEUT # 4.8 103/ul Normal 1.4-6.5 [facility] Comment on above: Performed By: #### C BC ####[facility] [address] [place] [id number] Watkins Neutrophils/100 WBC (Bld) 64.0 % Normal 43.0-75.0 [facility] Comment on above: Performed By: #### C BC ####[facility] [address] [place] [id number]. Sin Watkins Platelet mean volume (Bld) [Entitic vol] 11.4 fL Normal 9.5-13.5 [facility] Comment on above: Performed By: #### C BC ####[facility] [address] [place] [id number]. Sin Watkins PLT 224 103/ul Normal 150-450 [facility] Comment on above: Performed By: #### C BC ####[facility] [address] [place] [id number]. Sin Watkins RBC 4.96 106/ul Normal 4.20-5.40 [facility] Comment on above: Performed By: #### C BC ####[facility] [address] [place] [id number]. Sin Watkins WBC 7.4 103/ul Normal 4.0-11.0 [facility] Comment on above: Performed By: #### C BC ####[facility] [address] [place] [id number]. Sin Watkins PREG QUANT HCGon 08-27-2021 HCG QUANT <1 Normal [facility] Comment on above: Performed By: #### P REGQNT, TSH #### [facility] [address] [place], [place] [address] Dr. Sin Watkins HCG RANGE SEE BELOW Normal [facility] Comment on above: Result Comment: 5-50 0-1 WEEK 40-300 1-2 WEEKS 100-1,000 2-3 WEEKS 500-6,000 3-4 WEEKS 5,000-200,000 1-2 MONTHS 10,000-100,000 2-3 MONTHS 3,000-50,000 2ND TRIMESTER 1,000-50,000 3RD TRIMESTER Performed By: #### P REGQNT, TSH #### [facility] [address] [place] [address] Dr. Sin Watkins PROTIMEon 08-27-2021 INR Coag (PPP) [Relative time] 1.00 {INR} Normal [facility] Comment on above: Performed By: #### P T, PTT #### [facility] [address] [place] [address] Dr. Sin Watkins INR GUIDELINES SEE BELOW Normal [facility] Comment on above: Result Comment: MALATHI RED INR: 2.0 - 3.0 CONDITIONS NOT LISTED BELOW 2.5 - 3.5 FOR PROSTHETIC HEART VALVE REPLACEMENT 2.5 - 3.5 RECURRENT THROMBOSIS Performed By: #### P T, PTT #### [facility] [address] [place] [address] Dr. Sin Watkins PT Coag (PPP) [Time] 10.8 s Normal 9.0-11.6 [facility] Comment on above: Performed By: #### P T, PTT #### [facility] [address] [place] [address] Dr. Sin Watkins PTTon 08-27-2021 aPTT Coag (Bld) [Time] 28.8 s Normal 22.3-36.2 [facility] Comment on above: Performed By: #### P T, PTT #### [facility] [address] [place] [address] Dr. Sin Watkins TSHon 08-27-2021 TSH 0.760 uIU/mL Normal 0.358-3.740 [facility] Comment on above: Performed By: #### P REGQNT, TSH #### [facility] [address] [place] [address] Dr. Sin Watkins TSH RANGE SEE BELOW Normal [facility] Comment on above: Result Comment: <0.3 4 UIU/ml HYPERTHYROID 0.34-5.60 UIU/ml EUTHYROID >5.60 UIU/ml HYPOTHYROID Performed By: #### P REGQNT, TSH #### [facility] [address] [place] [address] Dr. Sin Watkins US PELVIS AND TRANSVAGon [...] FRANCOIS HORTON Date: 2021-08-27 17:53 Normal [facility] MAMM SCREEN 3D SERA CADon 07-29-2021 MAMM SCREEN 3D SERA CAD Patient: MADAI JONES Exam Date: 07/29/2021 : 1980 Gender:F Ordering : DR KRISTA GUTIÉRREZ Admission #: [id number] Family : Order #: [id number] CLICK HERE TO VIEW EXAM RADIOLOGY REPORT [...] breast cancer at age 52. LOCATION: [facility] BREAST COMPOSITION: Extremely dense, which lowers the [...] MD on 07/30/2021 at 08:24 Normal [facility] COMPREHENSIVE METABOLIC PANE Kent[place] 06-13-2021 Albumin [Mass/Vol] 4.4 g/dL Normal 3.6-5.1 [facility] Comment on above: Performed By: #### 1 7306, 25557, 7600, 78755 #### [facility] [place] [address] Associate Dentist: Francis Saunders MD Albumin/Globulin [Mass ratio] 1.5 {ratio} Normal 1.0-2.5 [facility] Comment on above: Performed By: #### 1 7306, 11930, 7600, 10358 #### [facility] [place] [address] Associate Dentist: Francis Saunders MD ALP [Catalytic activity/Vol] 82 U/L Normal 31-125 [facility] Comment on above: Performed By: #### 1 7306, 83598, 7600, 87465 #### [facility] [place] [address] Associate Dentist: Francis Saunders MD ALT [Catalytic activity/Vol] 18 U/L Normal 6-29 [facility] Comment on above: Performed By: #### 1 7306, 79980, 7600, 41327 #### [facility] [place] [address] Associate Dentist: Farncis Saunders MD AST [Catalytic activity/Vol] 18 U/L Normal 10-30 [facility] Comment on above: Performed By: #### 1 7306, 33409, 7600, 05562 #### [facility] [place] [address] Associate Dentist: Francis Saunders MD Bilirubin [Mass/Vol] 0.6 mg/dL Normal 0.2-1.2 [facility] Comment on above: Performed By: #### 1 7306, 08708, 7600, 34332 #### [facility] [place] [address] Associate Dentist: Francis Saunders MD BUN/CREATININE RATIO NOT APPLICABLE Normal 6-22 [facility] Comment on above: Performed By: #### 1 7306, 30417, 7600, 84465 #### [facility] of [place] [address] Associate Dentist: Francis Saunders MD Calcium [Mass/Vol] 9.6 mg/dL Normal 8.6-10.2 [facility] Comment on above: Performed By: #### 1 7306, 28456, 7600, 95040 #### [facility] of [place] [address] Associate Dentist: Francis Saunders MD Chloride [Moles/Vol] 105 mmol/L Normal 98-110 [facility] Comment on above: Performed By: #### 1 7306, 94781, 7600, 23843 #### [facility] of [place] [address] Associate Dentist: Francis Saunders MD CO2 [Moles/Vol] 25 mmol/L Normal 20-32 [facility] Comment on above: Performed By: #### 1 7306, 33851, 7600, 47653 #### [facility] of [place] [address] Associate Dentist: Francis Saunders MD Creatinine [Mass/Vol] 0.75 mg/dL Normal 0.50-1.10 [facility] Comment on above: Performed By: #### 1 7306, 70741, 7600, 62804 #### [facility] of [place] [address] Associate Dentist: Francis Saunders MD eGFR NON-AFR. GEORGIAN 98 mL/min/1.73m2 Normal > OR = 60 [facility] Comment on above: Performed By: #### 1 7306, 44098, 7600, 28382 #### [facility] [place] [address] Associate Dentist: Francis Saunders MD GFR/1.73 sq M.predicted among blacks MDRD (S/P/Bld) [Vol rate/Area] 114 mL/min/{1.73_m2} Normal > OR = 60 [facility] Comment on above: Performed By: #### 1 7306, 49889, 7600, 47829 #### [facility] [place] [address] Associate Dentist: Francis Saunders MD Globulin (S) [Mass/Vol] 3.0 g/dL Normal 1.9-3.7 [facility] Comment on above: Performed By: #### 1 7306, 07917, 0, 78447 #### [facility] [place] [address] Associate Dentist: Francis Saunders MD Glucose [Mass/Vol] 103 mg/dL High 65-99 [facility] Comment on above: Result Comment: Fasting reference interval For someone without known diabetes, a glucose value between 100 and 125 mg/dL is consistent with prediabetes and should be confirmed with a follow-up test. Performed By: #### 1 7306, 93231, 7600, 07564 #### [facility] [place] [address] Associate Dentist: Francis Saunders MD Potassium [Moles/Vol] 4.1 mmol/L Normal 3.5-5.3 [facility] Comment on above: Performed By: #### 1 7306, 13359, 7600, 91281 #### [facility] [place] [address] Associate Dentist: Francis Saunders MD Protein [Mass/Vol] 7.4 g/dL Normal 6.1-8.1 [facility] Comment on above: Performed By: #### 1 7306, 39992, 7600, 07202 #### [facility] [address] [address] Associate Dentist: Francis Saunders MD Sodium [Moles/Vol] 139 mmol/L Normal 135-146 [facility] Comment on above: Performed By: #### 1 7306, 83045, 7600, 36943 #### [facility] [address], [address] [place] [address] Associate Dentist: Francis Saunders MD Urea nitrogen [Mass/Vol] 8 mg/dL Normal 7-25 [facility] Comment on above: Performed By: #### 1 7306, 83215, 7600, 33683 #### [facility] [address], [address] [place] [address] Associate Dentist: Francis Saunders MD LIPID PANEL, [facility] - Cholesterol [Mass/Vol] 393 mg/dL High <200 [facility] Comment on above: Order Comment: FASTI NG:YES FASTING: YES Performed By: #### 1 7306, 76670, 7600, 29783 #### [facility] [address], [address] [place] [address] Associate Dentist: Francis Saunders MD Cholesterol in HDL [Mass/Vol] 39 mg/dL Low > OR = 50 [facility] Comment on above: Order Comment: FASTI NG:YES FASTING: YES Performed By: #### 1 7306, 71554, 7600, 69104 #### [facility] [address], [address] [place] [address] Associate Dentist: Francis Saunders MD Cholesterol in LDL [Mass/Vol] [...] about testing for familial hypercholesterolemia, please call [employer] Client Services at 5.812.GENE.INFO. Smita T, et al. J National Lipid Association Recommendations for Patient-Centered Management of Dyslipidemia: Part 1 Journal of Clinical Lipidology 2015;9(2), 129-169. Reference range: <100 Desirable range <100 mg/dL for primary prevention; <70 mg/dL for patients with CHD or diabetic patients with > or = 2 CHD risk factors. LDL-C is now calculated using the Nikky calculation, which is a validated novel method providing better accuracy than the Friedewald equation in the estimation of LDL-C. Sergio PRICE et al. JOEL. 2013;310(19): 1281-9099 (http://education.[employer] [place].[employer]/faq/UNL515) Performed By: #### 1 7306, 14369, 7600, 90269 #### [facility] [address], [address] [place] [address] Associate Dentist: Francis Saunders MD Cholesterol.total/C holesterol in HDL [Mass ratio] 10.1 {ratio} High <5.0 [facility] Comment on above: Order Comment: FASTI NG:YES FASTING: YES Performed By: #### 1 7306, 09136, 7600, 32578 #### [facility] [address], [address] [place] [address] Associate Dentist: Francis Saunders MD NON HDL CHOLESTEROL 354 [...] therapeutic option. Performed By: #### 1 7306, 88971, 7600, 09123 #### [facility] [address], [address] [place] [address] Associate Dentist: Francis Saunders MD Triglyceride [Mass/Vol] 377 mg/dL High <150 [facility] Comment on above: Order Comment: FASTI NG:YES FASTING: YES Result Comment: If a non-fasting specimen was collected, consider repeat triglyceride testing on a fasting specimen if clinically indicated. Smita et al. J. of Clin. Lipidol. 2015;9:129-169. Performed By: #### 1 7306, 83121, 7600, 80096 #### [facility] [address], [address] [place] [address] Associate Dentist: Francis Saunders MD TSH+FREE T4on 06-13-2021 Free T4 [Mass/Vol] 1.0 ng/dL Normal 0.8-1.8 [facility] Comment on above: Performed By: #### 1 7306, 78394, 7600, 12707 #### [facility] [address], [address] [place] [address] Associate Dentist: Francis Saunders MD TSH Qn 0.47 m[IU]/L Normal [facility] Comment on above: Result Comment: Refe rence Range > or = 20 Years 0.40-4.50 Ranges First trimester 0.26-2.66 Second trimester 0.55-2.73 Third trimester 0.43-2.91 Performed By: #### 1 7306, 76987, 7600, 53149 #### [facility] [address], [address] [place] [address] Associate Dentist: Francis Saunders MD VITAMIN D,25-OH,TOTAL,IAon 0 06-13-2021 [...] D, (D2,D3), LC/MS/MS is recommended: order code 52066 (patients >2yrs). See Note 1 Note 1 For additional information, please refer to http://education.[employer] [place].[employer]/faq/VVM415 (This link is being provided for informational/ educational purposes only.) Performed By: #### 1 7306, 56929, 7600, 98885 #### [facility] [address] [facility], [address] [place] [address] Associate Dentist: Francis Saunders MD Vital Signs Date Time Vital Sign Value Performing Clinician Facility 05-14-2024 09:09-0500 Body weight 78.47 kg Jackie BOONE Work Phone: [facility] 05-14-2024 09:09-0500 Diastolic blood pressure 66 mm[Hg] Jackie BOONE Work Phone: [facility] 05-14-2024 09:09-0500 Systolic blood pressure 98 mm[Hg] Jackie BOONE Work Phone: [facility] 02-20-2024 08:13-0500 Diastolic blood pressure 76 mm[Hg] Ignacioer Reuben DO Work Phone: [facility] 02-20-2024 08:13-0500 Heart rate 79 /min Christopher Reuben DO Work Phone: [facility] 02-20-2024 08:13-0500 SaO2% (BldA) [Mass fraction] 96 % [facility] Work Phone: [facility] 02-20-2024 08:13-0500 Systolic blood pressure 118 mm[Hg] Onealopher Reuben DO Work Phone: [facility] 01-04-2024 14:21-0400 Body height 167.6 cm Key Adelaida PRODUCTION CORRUGATOR-DRAPERY CUTTER Work Phone: [facility] 01-04-2024 14:21-0400 Body mass index (BMI) [Ratio] 28.28 kg/m2 Kiddie Kistuch PRODUCTION CORRUGATOR-DRAPERY CUTTER Work Phone: [facility] 01-04-2024 14:21-0400 Body temperature 97.9 [degF] Key Adelaida PRODUCTION CORRUGATOR-DRAPERY CUTTER Work Phone: [facility] 01-04-2024 14:21-0400 Body weight 79.47 kg Key Adelaida PRODUCTION CORRUGATOR-DRAPERY CUTTER Work Phone: [facility] 01-04-2024 14:21-0400 Diastolic blood pressure 64 mm[Hg] Key Cox PRODUCTION CORRUGATOR-DRAPERY CUTTER Work Phone: [facility] 01-04-2024 14:21-0400 Heart rate 90 /min Key Cox PRODUCTION CORRUGATOR-DRAPERY CUTTER Work Phone: [facility] 01-04-2024 14:21-0400 SaO2% (BldA) [Mass fraction] 97 % Key Cox PRODUCTION CORRUGATOR-DRAPERY CUTTER Work Phone: [facility] 01-04-2024 14:21-0400 Systolic blood pressure 128 mm[Hg] Key Cox PRODUCTION CORRUGATOR-DRAPERY CUTTER Work Phone: [facility] 11-22-2023 08:48-0400 Body weight 79.83 kg Christopher Reuben DO Work Phone: [facility] 11-22-2023 08:48-0400 Diastolic blood pressure 81 mm[Hg] Christopher Reuben DO Work Phone: [facility] 11-22-2023 08:48-0400 Heart rate 88 /min Christopher Reuben DO Work Phone: [facility] 11-22-2023 08:48-0400 SaO2% (BldA) [Mass fraction] 96 % Christopher Reuben DO Work Phone: [facility] 11-22-2023 08:48-0400 Systolic blood pressure 125 mm[Hg] Christopher Reuben DO Work Phone: [facility] 08-03-2023 08:42-0400 Body height 167.6 cm Krista Gutiérrez APRN-BARTACKER Work Phone: [facility] 08-03-2023 08:42-0400 Body mass index (BMI) [Ratio] 29.09 kg/m2 Krista Gutiérrez APRN-BARTACKER Work Phone: [facility] 08-03-2023 08:42-0400 Body temperature 97.81 [degF] Krista MARKSBARTACKER [facility] 08-03-2023 08:42-0400 Body weight 81.74 kg Krista Gutiérrez APRN-BARTACKER [facility] 08-03-2023 08:42-0400 Diastolic blood pressure 82 mm[Hg] Krista MARKSBARTACKER [facility] 08-03-2023 08:42-0400 Heart rate 90 /min Krista MARKSBARTACKER [facility]: [facility] 08-03-2023 08:42-0400 SaO2% (BldA) [Mass fraction] 96 % Krista Gutiérrez APRNDodieBARTACKER Work Phone[facility] 08-03-2023 08:42-0400 Systolic blood pressure 116 mm[Hg] Krista Gutiérrez APRN-BARTACKER Work Phone: [facility] 04-29-2023 09:40-0500 Body height 165.1 cm Agata James Other [facility] Other 04-29-2023 09:40-0500 Body mass index (BMI) [Ratio] 31.08 kg/m2 Agata James Other [facility] Other 04-29-2023 09:40-0500 Body temperature 97.8 [degF] Agata James Other [facility] Other 04-29-2023 09:40-0500 Body weight 84.73 kg Agata James Other [facility] Other 04-29-2023 09:40-0500 Respiratory rate 18 /min Agata James Other [facility] Other 04-29-2023 09:40-0500 SaO2% (BldA) [Mass fraction] 98 % Agata Walkerler Other [facility] Other 09-04-2021 11:30-0400 Body height 165.1 cm Yasmin De La Cruz Other [facility] Other 09-04-2021 11:30-0400 Body mass index (BMI) [Ratio] 30.78 kg/m2 Yasmin De La Cruz Other [facility] Other 09-04-2021 11:30-0400 Body temperature 99.3 [degF] Yasmin De La Cruz Other [facility] Other 09-04-2021 11:30-0400 Body weight 83.92 kg Yasmin De La Cruz Other [facility] Other 09-04-2021 11:30-0400 Respiratory rate 16 /min Yasmin De La Cruz Other [facility] Other 09-04-2021 11:30-0400 SaO2% (BldA) [Mass fraction] 98 % Yasmin De La Cruz Other [facility] Other Encounters Encounter Date Encounter Type Care Provider Facility Start: 05-14-2024 End: 05-14-2024 Bamboo flowsheet Jackie BOONE Work Phone: [facility] Start: 05-14-2024 End: 05-14-2024 Bamboo flowsheet Jackie BOONE Work Phone: [facility] Start: 05-14-2024 End: 05-14-2024 Patient encounter procedure Jackie BOONE Work Phone: [facility] Start: 05-14-2024 End: 05-14-2024 Periodic preventive med est patient 40-64yrs Jackie BOONE Work Phone: [facility] Comment on above: Well woman exam with routine gynecological exam; Encounter for screening mammogram for malignant neoplasm of breast Start: 02-20-2024 End: 02-20-2024 Bamboo flowsheet Christopher Reuben DO Work Phone: [facility] Start: 02-20-2024 End: 02-20-2024 Bamboo flowsheet Christopher Reuben DO Work Phone: [facility] Start: 02-20-2024 End: 02-20-2024 Patient encounter procedure Christopher Reuben DO Work Phone: [facility] Comment on above: Chronic migraine wit hout aura without status migrainosus, not intractable (CMS/HCC) (Primary Dx) Start: 02-20-2024 End: 02-20-2024 ambulatory PATRIA ALEXIS Not Available Start: 01-04-2024 End: 01-04-2024 Office outpatient visit 15 minutes Key MARKSDRAPERY CUTTER Work Phone: [facility] Comment on above: Depressive disorder (Primary Dx); Anxiety; Smoking; Influenza vaccination administered at current visit Start: 01-04-2024 End: 01-04-2024 ambulatory [facility] Start: 11-22-2023 End: 11-22-2023 Bamboo flowsheet Christopher Reuben DO Work Phone: [facility] Start: 11-22-2023 End: 11-22-2023 Bamboo flowsheet Christopher Reuben DO Work Phone: [facility] Start: 11-22-2023 End: 11-22-2023 Patient encounter procedure Christopher Reuben DO Work Phone: [facility] Comment on above: Chronic migraine wit hout aura without status migrainosus, not intractable ([facility]) (Primary Dx) Start: 11-22-2023 End: 11-22-2023 ambulatory PATRIA ALEXIS Not Available Start: 10-10-2023 End: 10-10-2023 Orders Only Ryan Armijo DO Work Phone: [facility] Start: 09-13-2023 End: 09-14-2023 Refill Krista Gutiérrez PRODUCTION CORRUGATOR-BARTACKER Work Phone: [facility] Start: 09-04-2023 End: 09-04-2023 Refill Krista Gutiérrez PRODUCTION CORRUGATOR-BARTACKER Work Phone: [facility] Start: 08-21-2023 End: 08-21-2023 ambulatory PATRIA ALEXIS Not Available Start: 08-03-2023 End: 08-04-[address] [facility] Start: 08-03-2023 Encounter for genera l adult medical examination without abnormal findings [facility] Start: 08-03-2023 End: 08-03-2023 Patient encounter procedure Krista Gutiérrez PRODUCTION CORRUGATOR-BARTACKER Work Phone: [facility] Work Phone: Start: 08-03-2023 End: 08-03-2023 Periodic preventive med est patient 40-64yrs Krista Gutiérrez PRODUCTION CORRUGATOR-BARTACKER Work Phone: [facility] Comment on above: Visit for annual hea lt examination (Primary Dx); BMI 29.0-29.9,adult; Anxiety; Herpes labialis; Hypertriglyceridemia Start: 08-03-2023 End: 08-03-2023 ambulatory [facility] Start: 08-03-2023 Encounter for genera l adult medical examination without abnormal findings [facility] Start: 07-26-2023 End: 07-26-2023 Refill Krista Gutiérrez PRODUCTION CORRUGATOR-BARTACKER [facility] Start: 06-15-2023 Orders Only Krista Gutiérrez PRODUCTION CORRUGATOR-BARTACKER Work Phone: [facility] Start: 05-16-2023 Orders Only Krista Gutiérrez PRODUCTION CORRUGATOR-BARTACKER [facility] Start: 04-29-2023 End: 04-29-2023 ambulatory Agata James Other [facility] Other Start: 04-29-2023 Office outpatient vi sit 25 minutes Agata James [facility] Start: 10-29-2021 End: 10-30-2021 Evaluation and management of inpatient DR JED NELSON Facility:[facility] Start: 10-27-2021 Encounter for preprocedural laboratory examination DR JED NELSON [facility] Start: 10-26-2021 End: 10-27-[address] JED NELSON Facility:[facility] Start: 10-26-2021 End: 10-27-2021 Encounter for preprocedural laboratory examination DR JED NELSON Facility:[facility] Start: 10-21-2021 Encounter for other preprocedural examination DR JED NELSON [facility] Start: 10-15-2021 End: 10-16-[address] JED NELSON Facility:[facility] Start: 10-15-2021 End: 10-16-2021 Encounter for other preprocedural examination DR JED NELSON Facility:[facility] Start: 09-04-2021 End: 09-04-2021 ambulatory Yasmin De La Cruz Other [facility] Other Start: 09-04-2021 Office outpatient ne w 30 minutes Yasmin De La Cruz [facility] Start: 08-27-2021 End: 08-28-[address] KRISTA GUTIÉRREZ Facility:[facility] Start: 07-29-2021 End: 07-30-[address] KRISTA GUTIÉRREZ Facility:[facility] Procedures Date Procedure Procedure Detail Performing Clinician Start: 01-04-2024 Adult depression scr eening assessment Key Cox PRODUCTION CORRUGATOR-DRAPERY CUTTER Work Phone: Start: 11-24-2023 Mammography Key Gonzalez ch PRODUCTION CORRUGATOR-DRAPERY CUTTER Work Phone: Start: 12-13-2022 Microscopic observat ion [Identifier] in Cervix by Cyto stain Key Cox PRODUCTION CORRUGATOR-DRAPERY CUTTER Work Phone: Start: 11-18-2022 Microscopic observat ion [Identifier] in Cervix by Cyto stain Krista Gutiérrez PRODUCTION CORRUGATOR-BARTACKER Work Phone: Start: 10-21-2022 Mammography Krista Gutiérrez PRODUCTION CORRUGATOR-BARTACKER Work Phone: Start: 07-26-2022 Adult depression scr eening assessment Krista Gutiérrez PRODUCTION CORRUGATOR-BARTACKER Work Phone: Start: 10-29-2021 Resection of Uterus, Open Approach DR KRISTA GUTIÉRREZ Start: 04-23-2018 Microscopic observat ion [Identifier] in Cervix by Cyto stain Krista Gutiérrez PRODUCTION CORRUGATOR-BARTACKER Work Phone: Plan of Treatment Date Care Activity Detail Author Start: 06-22-2028 DTaP,Tdap and Td Vaccines (2 - Td or Tdap) DTaP,Tdap and Td Vaccines (2 - Td or Tdap) [facility] Start: 12-14-2027 Screening for malign ant neoplasm of cervix [facility] Start: 11-19-2027 Screening for malign ant neoplasm of cervix Pap Smear [facility] Start: 05-19-2025 End: 05-19-2025 Patient encounter procedure 05/19/2025 8:30 AM EST Office Visit [facility] [address] [place] [address] Jed Nelson, DO [address] [place] [address] [facility] Start: 01-03-2025 Adult BMI Screening Adult BMI Screen ing [facility] Start: 01-03-2025 Depression Screening Depression Scre ening [facility] Start: 11-23-2024 Screening for malign ant neoplasm of breast Mammogram [facility] Start: 08-02-2024 Adult BMI Follow Up Plan Adult BMI Follow Up Plan [facility] Start: 08-02-2024 Adult BMI Screening Adult BMI Screen ing [facility] Start: 08-02-2024 Tobacco Screening Tobacco Screening [facility] Start: 05-20-2024 End: 05-20-2024 Patient encounter procedure [facility] [address] [facility] Start: 05-14-2024 End: 07-12-2025 MG Breast - bilateral Screening Bilateral screening mammogram Imaging Routine Encounter for screening mammogram for malignant neoplasm of breast Expected: 05/14/2024 (Approximate), Expires: 07/12/2025 [facility] Work Phone: Comment on above: Expected: 05/14/2024 (Approximate), Expires: 07/12/2025 Start: 05-14-2024 End: 05-14-2024 Patient encounter procedure 05/14/2024 9:00 AM EST Office Visit [facility] [address] [place] [id number] Jackie Paige, PA [address] [place] [address] Arrived [facility] Comment on above: Arrived Start: 03-18-2024 End: 03-18-2024 Patient encounter procedure 03/18/2024 3:00 PM EST Office Visit [facility] [address] [place] [address] Jackie Paige, PA [address] [place] [address] [facility] Start: 02-20-2024 End: 02-20-2024 Patient encounter procedure [facility] [address] Comment on above: Arrived Start: 2023 End: 2023 Patient encounter procedure 2023 11:00 AM EDT Office Visit [facility] [address] [place] [address] Jed Nelson, DO [address] [place] [address] [facility] Start: 11-22-2023 End: 11-22-2023 Patient encounter procedure 11/22/2023 9:00 AM EDT [facility] [address] [place] [address] Patria Alexis, [address] [place] [address] Arrived [facility] Comment on above: Arrived Start: 11-19-2023 Influenza vaccination [facility] Start: 10-22-2023 Screening for malign ant neoplasm of breast Mammogram [facility] Start: 08-03-2023 End: 08-03-2023 Patient encounter procedure 08/03/2023 8:40 AM EDT [facility] [address] [facility] [place] [place] [address] Krista Gutiérrez, PRODUCTION CORRUGATOR-[facility] [address] [place] [facility] [place] [address] [facility] Start: 07-27-2023 Adult BMI Screening Adult BMI Screen ing [facility] Start: 07-27-2023 Depression Screening Depression Scre ening [facility] Start: 07-27-2023 Tobacco Screening Tobacco Screening [facility] Start: 04-23-2023 Screening for malign ant neoplasm of cervix Pap Smear [facility] Start: 11-18-2022 Influenza vaccination Influenza Vacc ine [facility] Start: 2008 Screening for malign ant neoplasm of cervix [facility] Start: 12-20-1999 Screening for malign ant neoplasm of cervix Pap Smear [facility] Start: 1996 Adult BMI Follow Up Plan Adult BMI Follow Up Plan [facility] Start: 1978 Screening for malign ant neoplasm of colon [facility] End: 08-02-2024 Comprehensive metabolic 2000 panel - Serum or Plasma Comprehensive metabolic panel Lab Routine Visit for annual health examination 1 Occurrences starting 08/03/2023 until 08/02/2024 [employer] Work Phone: Comment on above: 1 Occurrences starti ng 08/03/2023 until 08/02/2024 End: 08-02-2024 Lipid panel Lipid panel Lab Routine Visit for annual health examination 1 Occurrences starting 08/03/2023 until 08/02/2024 [facility] Comment on above: 1 Occurrences starti ng 08/03/2023 until 08/02/2024 THIN PREP TIS PAP AN D HR HPV DNA THIN PREP TIS PAP AND HR HPV DNA Pathology and Cytology Routine Well woman exam with routine gynecological exam Ordered: 05/14/2024 [facility] [employer] Work Phone: Comment on above: Ordered: 05/14/2024 Immunizations Immunization Date Immunization Notes Care Provider [facility] 01-04-2024 influenza, seasonal, injectable, preservative free Key Cox PRODUCTION CORRUGATOR-DRAPERY CUTTER Work Phone: [facility] 01-04-2024 Immunization, In Clinic,; Translations: [Drug or medicament (substance)] Key Cox PRODUCTION CORRUGATOR-DRAPERY CUTTER Work Phone: [facility] 06-22-2018 tetanus toxoid, redu jorge diphtheria toxoid, and acellular pertussis vaccine, adsorbed Krista Gutiérrez PRODUCTION CORRUGATOR-BARTACKER Work Phone: [facility] Payers Date Payer Category Payer [facility] [id number] 2021 [employer] Blue [employer] Managed Care - Other [employer] [id number] 2021 Unknown [id number] 1978 Unknown [id number] [id number]. 2.593 1978 Unknown [id number] [id number]. 2.593 1978 Unknown [id number] [id number]. 2.593 1978 Unknown [id number] [id number]. 2.593 1978 Unknown [id number] [id number]. 2.593 1978 Unknown [id number] [id number]. 2.593 1978 Unknown [id number] [id number]. 2.1286 1978 Unknown [id number] [id number]. 2.1286 1978 Unknown [id number] [id number]. 2.1286 1978 Unknown [id number] [id number]. 2.1259 1978 Unknown [id number] [id number]. 2.1259 1978 Unknown [id number]. 2.[address] [facility] [id number] Social History Date Type Detail Facility Start: 08-18-2023 End: 01-04-2024 Sex Assigned At [facility] Other Start: 08-18-2023 Tobacco smoking status [facility] Smokes tobacco daily [facility] History of tobacco use Cigarette Smoker P [facility] Start: 08-18-2023 End: 05-14-2024 Alcoholic beverage intake Current drinker of alcohol (finding) [facility] Start: 08-18-2023 End: 01-04-2024 History of Social function [facility] Start: 08-18-2023 Alcohol Comment socially, rarely [facility] Start: 1980 Sex assigned at Female [facility] Start: 07-28-2022 Gender identity Identifies as female gender (finding) [facility] Start: 07-26-2022 Tobacco smoking status [facility] Ex-smoker [facility] History of tobacco use Current smoker [facility] Start: 07-26-2022 Tobacco use and exposure Smokeless tobacco non-user [facility] Adolescent depressio n screening assessment 0 [facility] Start: 07-28-2022 Sexual orientation Heterosexual (finding) [facility] Start: 10-23-2014 Sex Female (finding) [facility] tem Clinical Notes 09-04-2021 to 05-14-2024 PAOLO Alvarez - 05/14/2024 9:00 AM Danii Ramirez MA - 02/20/2024 8:15 AM CHERELLEJonnagracie Cox, PRODUCTION CORRUGATOR-DRAPERY CUTTER - 01/04/2024 2:15 PM Bensalinas SONNY Ramirez - 11/22/2023 9:00 AM EDT Note Date & Type Note Facility 05-14-2024 History of Present illness Narrative Reason for Appointment: Patient ID: Madai Jones is a 43 y.o. female who presents for Well Women Visit Patient presents today for Annual Exam. MEDICATIONS Current Outpatient Medications Medication Instructions cholecalciferol (VITAMIN D-3) 5,000 Units, Oral, Daily naratriptan (AMERGE) 2.5 mg, Oral, Once as needed, May repeat dose (1 tablet) once after 4 hours if migraine persists. No more than 2 doses in 24 hours
ondansetron ODT (ZOFRAN-ODT) 4 mg, Oral, Every 8 hours PRN rosuvastatin (CRESTOR) 20 mg, Oral, Daily ALLERGIES Allergies Allergen Reactions Gabapentin Unknown PROBLEMS Active Ambulatory Problems Diagnosis Date Noted Migraine ([facility]) 08/18/2023 Headache, migraine ([facility]) 08/18/2023 Headache, migraine, intractable ([facility]) 08/18/2023 Anxiety 08/18/2023 Intractable chronic migraine without aura and without status migrainosus ([facility]/HCC) 08/18/2023 Chronic migraine without aura without status migrainosus, not intractable ([facility]) 08/18/2023 Resolved Ambulatory Problems Diagnosis Date Noted No Resolved Ambulatory Problems Past Medical History: Diagnosis Date Chronic migraine without aura (CMS/HCC) Hyperlipidemia ([facility]) HISTORY PAST MEDICAL HISTORY SOCIAL HISTORY Past Medical History: Diagnosis Date Anxiety 08/18/2023 Chronic migraine without aura (CMS/HCC) Hyperlipidemia ([facility]) Social History Tobacco Use Smoking status: Every Day Types: Cigarettes Smokeless tobacco: Not on file Substance Use Topics Alcohol use: Yes Comment: socially, rarely Drug use: Never FAMILY HISTORY Family History Problem Relation Name Age of Onset Migraines Other SURGICAL HISTORY Past Surgical History: Procedure Laterality Date SECTION, LOW TRANSVERSE 01/16/2017 HYSTERECTOMY 10/2021 REVIEW OF SYSTEMS Review of Systems: Review of Systems Constitutional: Negative. HENT: Negative. Eyes: Negative. Respiratory: Negative. Cardiovascular: Negative. Gastrointestinal: Negative. Genitourinary: Negative. Musculoskeletal: Negative. Skin: Negative. Neurological: Negative. All other systems reviewed and are negative. Hematological: Negative. Endocrine: Negative. Allergic/Immunologic: Negative. OBJECTIVE Objective: Physical Exam Constitutional: Appearance: Normal appearance. She is well-developed and normal weight. Genitourinary: Vulva normal. Right Adnexa: not tender and no mass present. Left Adnexa: not tender and no mass present. No cervical discharge. Breasts: Breasts are soft. Right: Normal. Left: Normal. HENT: Head: Normocephalic. Nose: Nose normal. Mouth/Throat: Mouth: Mucous membranes are moist. Cardiovascular: Rate and Rhythm: Normal rate and regular rhythm. Pulses: Normal pulses. Pulmonary: Effort: Pulmonary effort is normal. Breath sounds: Normal breath sounds. Abdominal: General: Bowel sounds are normal. There is no distension. Palpations: Abdomen is soft. Tenderness: There is no abdominal tenderness. There is no guarding or rebound. Musculoskeletal: General: No swelling. Normal range of motion. Cervical back: Normal range of motion. Right lower leg: No edema. Left lower leg: No edema. Neurological: General: No focal deficit present. Mental Status: She is alert and oriented to person, place, and time. Skin: General: Skin is warm and dry. Psychiatric: Mood and Affect: Mood normal. Behavior: Behavior normal. Thought Content: Thought content normal. Judgment: Judgment normal. Vitals and nursing note reviewed. Exam conducted with a collar runner present. Vitals: There is no height or weight on file to calculate BMI. BP: 98/66 No LMP recorded. ASSESSMENT & PLAN ICD-10-CM 1. Well woman exam with routine gynecological exam Z01.419 THIN PREP TIS PAP AND HR HPV DNA CANCELED: THIN PREP TIS PAP AND HR HPV DNA 2. Encounter for screening mammogram for malignant neoplasm of breast Z12.31 Bilateral screening mammogram Bilateral screening mammogram Annual Exam: Patient presents today for an annual exam. Patient states she is doing well and has no complaints. Pap was obtained without difficulty. Orders Placed This Encounter Procedures Bilateral screening mammogram Follow Up: Patient is to return in one year for annual unless needed otherwise. Documented by Marisol Richter MA on behalf of: PAOLO Alvarez documented in this encounter [facility] 02-20-2024 History of Present illness Narrative Images from the original note were not included. Procedure - Therapeutic injection, Botulinum Toxin, Chronic Migraine Indication Chronic Migraine Identification The patient was positively identified by name and date of . Consent The procedure with risks and benefits was explained to the patient. The risks included but were not limited to bleeding/bruising, weakness, ptosis, dysphagia, infection, and . Informed consent for the procedure was obtained and witnessed. All further questions were answered during this visit. Site Prep The areas to be injected were sterilized with 70% isopropanol alcohol. Lot #: [id number] Exp: 05/2026 Dilution: 2:1 Procedure Procerus 5 units [employer]el[employer] Translator, L 5 units Freelance Translator, R 5 units Frontalis, L 5+5 units Frontalis, R 5+5 units Temporalis, L 5+5+5+5 units Temporalis, R 5+5+5+5 units Occipitalis, L 5+5+5 units Occipitalis, R 5+5+5 units Paraspinalis cervicis, L 5+5 units Paraspinalis cervicis, R 5+5 units Trapezius, L 5+5+5 units Trapezius, L 5+5+5 units Other TOTAL UNITS INJECTED 155 WASTED 45 Disposition The patient tolerated the procedure well. Post-op care was discussed. The patient is aware that duration of action is ~ 90 days, and that delay in reinjection often results in recurrence of migraines Patient Instructions The patient was instructed to call or return for any excessive,weakness or any other unexpected symptoms. Assessment Chronic migraine without aura, intractable, without status migrainosus - G43.719 documented in this encounter [facility] 01-04-2024 History of Present illness Narrative [address] [place] [id number] Patient: Madai Jones Date of : 1980 Encounter Date: 01/04/2024 History of Present Illness: The patient is a 43 y.o. female, an established patient, and is here for Chief Complaint Patient presents with Anxiety Depression . HPI Patient has been struggling with her anxiety and depression last several months. She feels like she has had a lot of stress buildup from work stress and having only 1 child left in the home. She struggles with her free time and states she freezes and does not know what to do 1st. She has difficulty sleeping because of increased worry. 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 She also has been going to the gym which does help for a short period of time. She had hysterectomy 2 years ago. She has tried Paxil extended-release, Wellbutrin, Effexor and they all made her nauseated. She has tried Prozac which gave her a flat affect but no other side effects. She takes her Ativan very rarely and usually has 1 refill per year. Problem List Items Addressed This Visit Other Anxiety RESOLVED: Depressive disorder - Primary Relevant Medications sertraline (ZOLOFT) 50 mg tablet Other Visit Diagnoses Smoking Influenza vaccination administered at current visit Relevant Orders FLU VACCINE TS (6MOS UP)(PF) 45 MCG(15MCG X3)/0.5 ML IM SYRINGE (Completed) Past Medical, Family, and Social History Update: The following portions of the patient's history were reviewed and updated as appropriate: allergies, current medications, past family history, past medical history, past social history, past surgical history and problem list. Past Medical History: Diagnosis Date Anxiety Hyperlipidemia Past Surgical History: Procedure Laterality Date HYSTERECTOMY Current Outpatient Medications Medication Sig Dispense Refill acyclovir-hydrocortisone (XERESE) 5-1 % cream Apply 1 Application topically 5 (five) times a day. 5 g 2 cholecalciferol, vitamin D3, (VITAMIN D3) 5,000 units capsule TAKE 1 CAPSULE IN THE MORNING 100 capsule 3 fluticasone propionate (CUTIVATE) 0.05 % cream fluticasone propionate 0.05 % topical cream APPLY TO THE AFFECTED AREA(S) on back and chest at NIGHT FOR 1 WEEK LORazepam (ATIVAN) 0.5 mg tablet Take 1 tablet (0.5 mg total) by mouth daily as needed for anxiety. 30 tablet 1 naratriptan (AMERGE) 2.5 mg tablet ondansetron ODT (ZOFRAN ODT) 4 mg disintegrating tablet rosuvastatin (CRESTOR) 20 mg tablet Take 1 tablet (20 mg total) by mouth nightly. 90 tablet 2 valACYclovir (VALTREX) 1000 mg tablet Take 2 tablets (2,000 mg total) by mouth in the morning and 2 tablets (2,000 mg total) before bedtime. 4 tablet 5 icosapent ethyL (VASCEPA) 1 gram capsule TAKE 2 CAPSULES IN THE MORNING AND 2 CAPSULES BEFORE BEDTIME (Patient not taking: Reported on 01/04/2024) 360 capsule 3 Immunization, In Clinic, Inject into the appropriate muscle once for 1 dose. Sign this order to satisfy the OSBOP Positive ID requirements for immunization orders. sertraline (ZOLOFT) 50 mg tablet Take 1 tablet (50 mg total) by mouth in the morning. 30 tablet 1 No current facility-administered medications for this visit. (All medications reviewed and updated by provider since last office visit or hospitalization) Allergies: Gabapentin Tobacco History: Social History Tobacco Use Smoking Status Former Current packs/day: 0.50 Average packs/day: 0.5 packs/day for 27.0 years (13.5 ttl pk-yrs) Types: Cigarettes Smokeless Tobacco Never (If patient a smoker, smoking cessation counseling offered) Social History: Social History Substance and Sexual Activity Alcohol Use Yes Review of Systems: Review of Systems Constitutional: Negative. HENT: Negative. Respiratory: Negative. Neurological: Negative. Psychiatric/Behavioral: Positive for agitation, decreased concentration, dysphoric mood and sleep disturbance. Negative for behavioral problems, confusion, hallucinations, self-injury and suicidal ideas. The patient is nervous/anxious. The patient is not hyperactive. Physical Exam: BP 128/64 (BP Site: Left Arm, BP Postition: Sitting) Pulse 90 Temp 36.6 C (97.9 F) (Oral) Ht 167.6 cm (5' 6 ) Wt 79.5 kg (175 lb 3.2 oz) SpO2 97% BMI 28.28 kg/m Physical Exam Vitals reviewed. Constitutional: General: She is not in acute distress. Appearance: Normal appearance. HENT: Head: Normocephalic and atraumatic. Neurological: General: No focal deficit present. Mental Status: She is alert and oriented to person, place, and time. Gait: Gait normal. Psychiatric: Attention and Perception: Attention normal. Mood and Affect: Mood normal. Speech: Speech normal. Behavior: Behavior normal. Thought Content: Thought content normal. Cognition and Memory: Cognition normal. Judgment: Judgment normal. Assessment and Plan: Madai was seen today for anxiety and depression. Diagnoses and all orders for this visit: Depressive disorder Anxiety Smoking Influenza vaccination administered at current visit - FLU VACCINE TS 2023-(6MOS UP)(PF) 45 MCG(15MCG X3)/0.5 ML IM SYRINGE Other orders - sertraline (ZOLOFT) 50 mg tablet; Take 1 tablet (50 mg total) by mouth in the morning. Follow-up: Zoloft and Lexapro were discussed and patient opted to try Zoloft. Mechanism of action side effects were discussed. She may use the Ativan as needed also. She is going to check out [facility] for counseling. Patient is not ready to stop smoking despite knowing negative health consequences. Patient will follow-up in 4-6 weeks to recheck her symptoms. ELIAS MODI APRN-CNP 01/04/24 1458 documented in this encounter [facility] 11-22-2023 History of Present illness Narrative Images from the original note were not included. Procedure - Therapeutic injection, Botulinum Toxin, Chronic Migraine Indication Chronic Migraine Identification The patient was positively identified by name and date of . Consent The procedure with risks and benefits was explained to the patient. The risks included but were not limited to bleeding/bruising, weakness, ptosis, dysphagia, infection, and . Informed consent for the procedure was obtained and witnessed. All further questions were answered during this visit. Site Prep The areas to be injected were sterilized with 70% isopropanol alcohol. Lot #: [id number] Exp: 08/2025 Dilution: 2:1 Procedure Procerus 5 units Freelance Translator, L 5 units Freelance Translator, R 5 units Frontalis, L 5+5 units Frontalis, R 5+5 units Temporalis, L 5+5+5+5 units Temporalis, R 5+5+5+5 units Occipitalis, L 5+5+5 units Occipitalis, R 5+5+5 units Paraspinalis cervicis, L 5+5 units Paraspinalis cervicis, R 5+5 units Trapezius, L 5+5+5 units Trapezius, L 5+5+5 units Other TOTAL UNITS INJECTED 155 WASTED 45 Disposition The patient tolerated the procedure well. Post-op care was discussed. The patient is aware that duration of action is ~ 90 days, and that delay in reinjection often results in recurrence of migraines Patient Instructions The patient was instructed to call or return for any excessive,weakness or any other unexpected symptoms. Assessment Chronic migraine without aura, intractable, without status migrainosus - G43.719 documented in this encounter [facility] 08-03-2023 History of Present illness Narrative Subjective Patient ID: Madai Jones is a 42 y.o. female. Here for her wellness today She started going to the gym in the winter as she was concerned about her weight and she is losing weight She is eating healthier She has been feeling better since her hysterectomy and did have a pap with Dr Nelson last fall in November which was normal She is up to date on her mammogram She is tolerating her medication for her cholesterol She still does have occasional anxiety attacks and uses the ativan for this sparingly, I reviewed her OAARs is has been two years since her last prescription, she used her last dose several days ago so she really does use this sparingly The medication she uses for cold sores works well, no issues with this at this time The following portions of the patient's history were reviewed and updated as appropriate: allergies, current medications, past family history, past medical history, past social history, past surgical history, problem list, and medication reconciliation was completed including current medication and post discharge medication. Review of Systems Constitutional: Positive for activity change. HENT: Negative. Eyes: Negative. Respiratory: Negative. Cardiovascular: Negative. Gastrointestinal: Negative. Endocrine: Negative. Genitourinary: Negative. Musculoskeletal: Negative. Allergic/Immunologic: Negative. Neurological: Negative. Hematological: Negative. Psychiatric/Behavioral: The patient is nervous/anxious. Objective Physical Exam Vitals and nursing note reviewed. Constitutional: General: She is not in acute distress. Appearance: Normal appearance. She is not ill-appearing. HENT: Head: Normocephalic. Eyes: Conjunctiva/sclera: Conjunctivae normal. Neck: Vascular: No carotid bruit. Cardiovascular: Rate and Rhythm: Normal rate and regular rhythm. Heart sounds: Normal heart sounds. No murmur heard. Pulmonary: Effort: Pulmonary effort is normal. Breath sounds: Normal breath sounds. Musculoskeletal: Cervical back: Neck supple. No tenderness. Right lower leg: No edema. Left lower leg: No edema. Lymphadenopathy: Cervical: No cervical adenopathy. Skin: General: Skin is warm and dry. Capillary Refill: Capillary refill takes less than 2 seconds. Neurological: Mental Status: She is alert and oriented to person, place, and time. Psychiatric: Mood and Affect: Mood normal. Behavior: Behavior normal. Thought Content: Thought content normal. Judgment: Judgment normal. Assessment/Plan Madai was seen today for annual exam. Diagnoses and all orders for this visit: Visit for annual health examination - Comprehensive metabolic panel; Future - Lipid panel; Future BMI 29.0-29.9,adult Anxiety - LORazepam (ATIVAN) 0.5 mg tablet; Take 1 tablet (0.5 mg total) by mouth daily as needed for anxiety. Herpes labialis Hypertriglyceridemia Labs drawn today for routine annual exam but also to check response to her cholesterol medications Her blood pressure is good Her weight has improved, continue to encourage exercise and healthy eating patterns She does have some chronic but sporadic panic attacks, will renew her ativan as she definitely does not abuse this She has had a great response to her topical herpes medication, her insurance does not cover this but she is willing to pay out of pocket Await her lab results Will see her back in one year unless her level of anxiety increases The OARRS/MAPPS database was reviewed today and found to be appropriate. No indication of medication diversion, or non compliance. Patient noted to have elevated BMI and the following intervention(s) were applied: encouragement to exercise. MAE Adame 08/03/23 0922 documented in this encounter [facility] 04-29-2023 Evaluation note Encounter Date Diagnosis Assessment [...] treatment plan. Patient left in stable condition. [facility] Other 08-12-2022 NoteDISCHARGE SUMMARY DISCHARGE DATE: 10/30/2021 PRIMARY DIAGNOSES: 1. [...] when pain free and no longer on narcotics.[id number] NoteOPERATIVE NOTE OPERATION DATE: 10/29/2021 PROCEDURE: Total abdominal hysterectomy with cystoscopy. PREOPERATIVE DIAGNOSIS: Menorrhagia, dysmenorrhea, dyspareunia. POSTOPERATIVE DIAGNOSIS: Menorrhagia, dysmenorrhea, dyspareunia. ANESTHESIA: General. SURGEON: Jed Nelson D.O. DELIVERY NURSE: HAMLET Lowery URINE OUTPUT: Yellow and clear. [...] with good visualization of the bladder. An O'Mbigdchc-G-Gmqkjs retractor was placed into the patient's abdomen. [...] to the Recovery Room in stable condition. ??[facility] [id number] Evaluation note* Encounter Date Diagnosis Assessment Notes Treatment Notes Treatment Clinical Notes Aug, Cough (ICD-10 - R05.9) Aug, COVID-19 (ICD-10 - U07.1) Today you tested positive for the COVID virus. This mean you need to follow all CDC quarantine guidelines found at [email or web address] v. It is important to rest, increase fluids, [...] care provider if no improvement of symptoms [facility] Other Evaluation note* Diagnosis Chronic migraine without aura without status migrainosus, not intractable (CMS/HCC)- Primary [facility] Diagnosis Chronic migraine without aura without status migrainosus, not intractable (CMS/HCC)- Primary [facility] Diagnosis Visit for annual health examination- Primary BMI 29.0-29.9,adult Anxiety Anxiety state, unspecified Herpes labialis Herpes simplex without mention of complication Hypertriglyceridemia Pure hyperglyceridemia documented in this encounter [facility]* Diagnosis Depressive disorder- Primary Depressive disorder, not elsewhere classified Anxiety Anxiety state, unspecified Smoking Tobacco use disorder Influenza vaccination administered at current visit [facility] Diagnosis Well woman exam with routine gynecological exam Routine gynecological examination Encounter for screening mammogram for malignant neoplasm of breast [facility] N[facility]ative - Reported* Type Description Date Medical History Migraines Surgical History x3 Hospitalization History See past surgical hx [facility] Other History general Narrative - Reported* Type Description Date Medical History Migraines Surgical History x3 Surgical History hysterectomy 2021 Hospitalization History See past surgical hx [facility] Other InstructionsNot on filedocumented in this encounter [facility] filedocument[facility] filedocumented in [facility]Not on filedocumented in this encounter [facility] on filedocumented in this encounter [facility]Not on filedocumented in this encounter [facility]* Attachments The following attachments cannot be sent through Care Everywhere. * Sertraline, ADULT (Burmese) [facility] Purpose Family History No Family History Records FoundNo Family History Records FoundNo Family History Records FoundNo Family History Records FoundNo Family History Records Found Advance Directives No Advanced Directives Records FoundNo Advanced Directives Records FoundNo Advanced Directives Records FoundNo Advanced Directives Records FoundNo Advanced Directives Records Found Reason for Referral Specialty Diagnoses / Procedures Referred By Naresh craven Referred To Contact Diagnoses Anxiety Krista Gutiérrez, PRODUCTION CORRUGATOR-BARTACKER [address] [place] [address] Referral ID Status Reason Start Date Expiration Date V isits Requested Visits Authorized [id number] Authorized 07/04/2023 08/02/2024 1 1 Additional Source Comments REASON FOR VISIT (unrecogniz ed section and content) Reason Comments Med Refill Reason Comments Annual Exam Reason Comments Anxiety Depression Reason Comments Well Women Visit INFORMATION SOURCE (unrecogn ized section and content) DATE CREATED AUTHOR 10/05/2021 [facility] DATE CREATED AUTHOR AUTHOR'S ORGANIZ ATION 03/15/2022 [facility] DATE CREATED AUTHOR AUTHOR'S ORGANIZ ATION 08/06/2023 [facility] DATE CREATED AUTHOR AUTHOR'S ORGANIZ ATION 01/07/2024 [facility] DATE CREATED AUTHOR AUTHOR'S ORGANIZ ATION 02/21/2024 [facility] Care Teams (unrecognized sec tion and content) Escalator Mechanic Relationship Specialty Start Date End Date Ryan Armijo MD [address] [place] [address] PCP - General Family Medicine 12/13/22 Escalator Mechanic Relationship Specialty Start Date End Date Ryan Armijo MD [address] [place] [address] PCP - General Family Medicine 12/13/22 Escalator Mechanic Relationship Specialty Start Date End Date Ryan Armijo MD [address] [place] [address] PCP - General Family Medicine 12/13/22 Escalator Mechanic Relationship Specialty Start Date End Date Ryan Armijo MD [address] [place] [address] PCP - General Family Medicine 12/13/22 Escalator Mechanic Relationship Specialty Start Date End Date Ryan Armijo DO [address] [place] [address] PCP - General Family Medicine 01/18/22 Escalator Mechanic Relationship Specialty Start Date End Date Ryan Armijo DO [address] [place] [address] PCP - General Family Medicine 01/18/22 Escalator Mechanic Relationship Specialty Start Date End Date Luz Marina Ryan Mcdaniel [address] [place] [address] PCP - General Family Medicine 01/18/22 Escalator Mechanic Relationship Specialty Start Date End Date Luz Marina Ryan Mcdaniel [address] [place] [address] PCP - General Family Medicine 01/18/22 Escalator Mechanic Relationship Specialty Start Date End Date Ryan Armijo DO [address] [place] [address] PCP - General Family Medicine 01/18/22 Escalator Mechanic Relationship Specialty Start Date End Date Ryan Armijo DO [address] [place] [address] PCP - General Family Medicine 01/18/22 Escalator Mechanic Relationship Specialty Start Date End Date Ryan Armijo DO [address] [place] [address] PCP - General Family Medicine 01/18/22 Escalator Mechanic Relationship Specialty Start Date End Date Ryan Armijo MD [address] [place] [address] PCP - General Family Medicine 12/13/22 Escalator Mechanic Relationship Specialty Start Date End Date Ryan Armijo MD [address] [place] [address] PCP - General Family Medicine 12/13/22 FOR RECORDS PERTAINING TO PATIENTS WHO ARE [...] BE BASED ON THE PRIMARY CLINICAL RECORDS. [email or web address] [email or web address]. provides no warranty or guarantee of the accuracy or completeness of information in this document.
[2024-05-16 10:08] LABS: Age Gdln ACOG Testing Note (.); HPV Aptima Negative (Negative); IGP, Aptima HPV, rfx 16/18,45 Note (.)
== END 2024-05-14 15:00 | disposition home or self-care (01) ==
LOC: LAB 14:59
PROVIDERS: PCP Family Medicine; Visit Provider Obstetrics & Gynecology
DX: Z01.419 Encounter for gynecological examination (general) (routine) without abnormal findings (principal)
CPT/HCPCS: 87624; 88175

== ENCOUNTER 2024-11-12 15:21 | Emergency (ER) | payer BC, SELFPAY ==
[2024-11-12 15:36] VITALS: BP 135/97; PULSE 94; TEMP 36.7; O2SAT 97; BMI 29.9
[2024-11-12] MEDS: KETOROLAC TROMETHAMINE 30 MG/ML VIAL IVP (16:12)
[2024-11-12] MEDS: DEXAMETHASONE SOD PHOS 10 MG/ML VIAL IV (16:14)
[2024-11-12 16:18] VITALS: O2SAT 97
[2024-11-12 16:23] LABS: Hematocrit 42.0 % (36.0-48.0); Hemoglobin 14.8 g/dL (12.0-16.0); Immature Granulocytes Abs Auto 0.01 10^3/uL (0.00-0.03); Immature Granulocytes Pct Auto 0.1 % (0.0-0.5); Lymphocytes Absolute Auto 2.6 10^3/uL (1.2-3.8); Mean Corpuscular HGB Conc 35.2 g/dL (29.9-35.2); Mean Corpuscular Hemoglobin 32.2 pg (26.7-34.0); Mean Corpuscular Volume 91.3 fL (81.0-99.0); Platelet Count 191 10^3/uL (150-450); Red Blood Count 4.60 10^6/uL (4.20-5.40); White Blood Count 7.4 10^3/uL (4.0-11.0)
--- NOTE | 2024-11-12 16:28 | PC.NURSE ---
pt back from imaging at this time. pt aware of pending results at this time.
--- NOTE | 2024-11-12 16:30 | CT_ITS ---
[address] [address] Patient Name: JESSICA YU MRN: [id number] date: 1980 Sex: F Assigned Patient Location: ER Current Patient Location: [facility] Accession/Order Number: [id number] Exam Date: 11/12/2024 16:20 Report Date: 11/12/2024 16:46 At the request of: REBECCA MARTINEZ Procedure: CT soft tissue neck w con CT soft tissue neck w con 11/12/2024 4:26 PM SIGNS AND SYMPTOMS: ^mass left lateral thyroid CONTRAST: 100 mL of intravenous Omnipaque 300 TECHNIQUE: Multidetector CT axial slices of the soft tissues of the neck were obtained with IV contrast. Sagittal and coronal reformats were reconstructed. CT was performed with one or more of the following dose reduction techniques: Automated exposure control, adjustment of the mA and/or kV according to patient size, or use of iterative reconstruction technique. COMPARISON: None FINDINGS: Soft tissues of the orbits are within normal limits. The soft tissues of the infratemporal fossa fossa structures show no acute abnormality. Mucosal surfaces of the nasopharynx, oropharynx, hypopharynx, glottic, and subglottic airways are grossly unremarkable. Benign-appearing calcifications are noted in the palatine tonsils. The parotid glands and submandibular glands are within normal limits. There is a 2 x 1 cm hypoattenuating nodule within the left thyroid lobe. Malignancy is not excluded. Ultrasound follow-up is recommended on a nonemergent basis. The carotid and jugular circulations are within normal limits. The visualized lung parenchyma shows no acute pathology. No acute bony abnormalities are appreciated. The skull base, craniocervical junction, atlantoaxial joints are within normal limits. The paranasal sinuses are within normal limits. CT/CT soft tissue neck w con IMPRESSION: There is a 2 x 1 cm hypoattenuating nodule within the left thyroid lobe. Malignancy is not excluded. Ultrasound follow-up is recommended on a nonemergent basis. No mass or abnormal enhancement is noted otherwise. Impression dictated by: Devan Coats M.D. 11/12/2024 4:46 PM Dictation Location[facility] Electronically authenticated by: [id number] Y Date: 11/12/2024 16:46
[2024-11-12 16:41] LABS: Alanine Aminotransferase 61 U/L (14-59); Albumin Globulin Ratio 0.8; Albumin Level 3.9 g/dL (3.4-5.0); Alkaline Phosphatase 102 U/L (46-116); Anion Gap 11.6; Aspartate Amino Transferase 43 U/L (15-37); Blood Urea Nitrogen 11.0 mg/dL (7.0-18.0); Calcium 9.9 mg/dL (8.5-10.1); Carbon Dioxide 28.6 mmol/L (21.0-32.0); Chloride 104 mmol/L (98-107); Estimated GFR (African America >60 (>=60 mL/min/1.73m^2); Estimated GFR (Non-African Ame >60 (>=60 mL/min/1.73m^2); Globulin 4.6 g/dL; Glucose 112 mg/dL (74-106); Potassium 4.2 mmol/L (3.5-5.1); Sodium 140 mmol/L (136-145); Total Protein 8.5 g/dL (6.4-8.2)
--- OUTSIDE RECORDS SUMMARY | 2024-11-12 16:52 | XMS_ITS | CCD ---
Author Organization [facility] CliniSyin Care Team Providers Care Dryerman/Woman Name Role Phone Yasmin De La Cruz Unavailable DEZ, DR KRISTA Cooper Admitting Unavailable KUNRoro, DR KRISTA Cooper Attending Unavailable KUNRoro, DR KRISTA Cooper Primary Care Unavailable WEST, DR FRANCOIS Pearson Consulting Unavailable KUNS, DR KRISTA Cooper Consulting Unavailable OMAR, DR RODRIGUEZ Admitting Unavailable OMAR, DR RODRIGUEZ Attending Unavailable KUNS, DR KRISTA Cooper Primary Care Unavailable WEST, DR FRANCOIS Pearson Consulting Unavailable OMAR, DR RODRIGUEZ Consulting Unavailable KUNS, DR KRISTA Cooper Primary Care Unavailable MISC, DR PRESSLEY Admitting Unavailable MISC, DR PRESSLEY Attending Unavailable MISC, DR PRESSLEY Consulting Unavailable OMAR, DR RODRIGUEZ Admitting Unavailable OMAR, DR RODRIGUEZ Attending Unavailable FURLONG, DR RYAN Mcdaniel Primary Care Unavailable HORNESABINA ROBB Consulting Unavailable OMAR, DR RODRIGUEZ Admitting Unavailable OMAR, DR RODRIGUEZ Attending Unavailable FURLONG, DR RYAN Mcdaniel Primary Care Unavailable OMAR, DR RODRIGUEZ Consulting Unavailable OMAR, DR RODRIGUEZ Admitting Unavailable OMAR, DR RODRIGUEZ Attending Unavailable FURLONG, DR RYAN Mcdaniel Primary Care Unavailable OMAR, DR RODRIGUEZ Consulting Unavailable OMAR, DR RODRIGUEZ Procedure Practitioner Unavailab KAMRYN Aguirre Consulting Unavailable ANTONIO STANLEY Consulting Unavailable Agata James Unavailable KRISTA GUTIÉRREZ Referring Unavailable RYAN ARMIJO Primary Care Unavailable Ryan Armijo MD Primary Care Provider Ryan Armijo DO Primary Care Provider Ryan Armijo MD Primary Care Provider Jinny Ceballos Unavailable JACKIE MARTINEZ Attending Unavailable PATRIA ALEXIS Attending Unavailable PATRIA ALEXIS Attending Unavailable PATRIA ALEXIS Attending Unavailable PATRIA ALEXIS Attending Unavailable JINNY YADAV Attending Unavailable Ryan Armijo DO Primary Care Provider RYAN ARMIJO Referring Unavailable RYAN ARMIJO Primary Care Unavailable HONEY COX Attending Unavailable RYAN ARMIJO Attending Unavailable RYAN ARMIJO Referring Unavailable RYAN ARMIJO Primary Care Unavailable Patria Alexis DO Attending Provider Ryan Armijo DO Primary Care Provider Allergies Allergy Classification Reported Allergen(s) Allergy Type Date of Onset Reaction(s) Facility (20 sources) gabapentin; Translations: [GABAPENTIN] Drug Allergy 2 Unknown, Other (See Comments) [facility] Repository (1 source) gabapentin Drug Allergy [facility] Repository Medications Current Medications Medication Drug Class(es) Dates Sig (Normalized) Sig (Original) acyclovir 50 mg/ml / hydrocortisone 10 mg/ml topical cream (15 sources) Herpesvirus Nucleoside Analog DNA Polymerase Inhibitor, [...] 05/16/2023 Discontinued (Reorder) onabotulinumtoxina 200 unt injection (14 sources) Acetylcholine Release Inhibitor Start: 05-20-2024 End: 05-20-2024 onabotulinumtoxinA (Botox) injection 155 Units Start: 05-20-2024 End: 05-20-2024 inject 155 [IU] by intramuscular injection once 155 Units, Intramuscular, Once, On Mon05/20/24 at 1000, For 1 dose, Charging context for this clinic-administered medication: Medically Necessary/Insurance Start: 02-20-2024 End: 02-20-2024 onabotulinumtoxinA (Botox) i njection 155 Units Start: 02-20-2024 End: 02-20-2024 inject [...] Medically Necessary/Insurance cholecalciferol 0.125 mg oral capsule (20 sources) Vitamin D Start: 07-26-2023 take 1 capsule by mouth once daily cholecalciferol (Vitamin D-3) 125 MCG (5000 UT) capsule Take 5,000 Units by mouth Daily 07/26/2023 Active Start: 02-25-2022 End: 09-09-2024 take 1 capsule by mouth in the morning cholecalciferol, vitamin D3, (VITAMIN D3) 5,000 units capsule Take 1 capsule (5,000 Units total) by mouth in the morning. take in the morning. 100 capsule 3 09/09/2024 Active cyclobenzaprine hydrochloride 10 mg oral tablet (4 sources) Muscle Relaxant End: 08-03-2023 take 1 tablet by mouth three times daily cyclobenzaprine (FLEXERIL) 10 mg tablet cyclobenzaprine 10 mg tablet TAKE 1 TABLET BY MOUTH THREE TIMES DAILY 08/03/2023 Discontinued (Therapy completed) dextromethorphan hydrobromide 1.5 mg/ml / pyrilamine maleate 1.5 mg/ml oral solution (1 source) Uncompetitive L-ujtzzf-T-asparta te Receptor Antagonist, Sigma-1 Agonist Start: 04-29-2023 take 10 mL by mouth every eight hours Montezuma DM 7.5-7.5 MG/5ML 10 mL Orally every 8 hours for 5 days Apr, Active diclofenac sodium 75 mg delayed release oral tablet (4 sources) Nonsteroidal Anti-inflammatory Drug End: 08-03-2023 take 1 tablet by mouth twice daily diclofenac (VOLTAREN) 75 mg EC tablet diclofenac sodium 75 mg tablet,delayed release TAKE 1 TABLET BY MOUTH TWICE DAILY 08/03/2023 Discontinued (Therapy completed) escitalopram 20 mg oral tablet (8 sources) Serotonin Reuptake Inhibitor Start: 08-29-2024 take 1 tablet by mouth in the morning escitalopram (LEXAPRO) 20 mg tablet Take 1 tablet (20 mg total) by mouth in the morning. 90 tablet 1 08/29/2024 Active Start: 05-20-2024 End: 08-29-2024 take 1 tablet by mouth in the morning escitalopram (LEXAPRO) 10 mg tablet Take 1 tablet (10 mg total) by mouth in the morning. 90 tablet 1 06/18/2024 08/29/2024 Discontinued (Dose adjustment) fluticasone propionate 0.5 mg/ml topical cream (13 sources) Corticosteroid fluticasone propionate (CUTIVATE) 0.05 % cream Active icosapent ethyl 1000 mg oral capsule (20 sources) Start: 07-27-2022 End: 05-14-2024 icosapent ethyL (VASCEPA) 1 gram capsule TAKE 2 CAPSULES IN THE MORNING AND 2 CAPSULES BEFORE BEDTIME 360 capsule 3 09/14/2023 Active LORazepam 0.5 mg oral tablet (16 sources) Benzodiazepine Start: 08-03-2023 End: 08-03-2023 take [...] 4 MG as directed Orally for 6 10 Apr, 2023 Active naratriptan 2.5 mg oral tablet (20 sources) Serotonin-1b and Serotonin-1d Receptor Agonist Start: 01-31-2023 End: 08-18-2024 naratriptan (Amerge) 2.5 MG tablet Indications: Chronic migraine without aura without status migrainosus, not intractable (CMS/HCC) Take 1 tablet (2.5 mg) by mouth 1 (one) time if needed for migraine May repeat dose (1 tablet) once after 4 hours if migraine persists. No more than 2 doses in 24 hours 27 tablet 05/20/2024 08/18/2024 Active Start: 02-15-2022 naratriptan (A MERGE) 2.5 mg tablet 02/15/2022 Active ondansetron 4 mg disintegrating oral tablet (20 sources) Serotonin-3 Receptor Antagonist Start: 02-15-2022 End: 06-06-2024 ondansetron ODT (ZOFRAN ODT) 4 mg disintegrating tablet 02/15/2022 Active rosuvastatin calcium 20 mg oral tablet (20 sources) HMG-CoA Reductase Inhibitor Start: 10-10-2023 End: 07-16-2024 rosuvastatin (CRESTOR) 20 mg tablet TAKE 1 TABLET NIGHTLY (NEW DOSE) 90 tablet 3 07/16/2024 Active Start: 09-09-2022 End: 05-14-2024 take 1 tablet by mouth in the morning rosuvastatin (Crestor) 10 MG tablet Take 1 tablet by mouth in the morning. 09/09/2022 05/14/2024 Discontinued (Other) Rosuvastatin Ruy cium Active valACYclovir 1000 mg oral tablet (17 sources) Herpesvirus Nucleoside Analog DNA Polymerase Inhibitor, [...] up to 50 mg Oct, 25 mg sertraline 50 mg oral tablet (2 sources) Serotonin Reuptake Inhibitor Start: 01-04-2024 End: 05-20-2024 take 1 tablet by mouth in the morning sertraline (ZOLOFT) 50 mg tablet Take 1 tablet (50 mg total) by mouth in the morning. 30 tablet 1 01/04/2024 05/20/2024 Discontinued (Patient Stopped On Own) topiramate (2 sources) Topamax Not-Taking/PRN Topamax Not-Taki ng varenicline 1 mg oral tablet (2 sources) Partial Cholinergic Nicotinic Agonist take 1 tablet by mouth every twelve hours Chantix 1 MG 1 tablet Orally Twice a day Not-Taking/PRN Problems Active Problems Problem Classification Problem Date Documented Da te Episodic/Chronic Anxiety disorders (20 sources) Anxiety disorder, unspecified; Translations: [Anxiety] Onset: 11-04-2021 08-18-2023 Chronic Disorders of lipid metabolism (20 sources) Mixed hyperlipidemia; Translations: [Mixed hyperlipidemia] Onset: 06-13-2021 02-25-2022 Chronic Headache; including migraine (20 sources) Migraine; Translations: [Migraine] Onset: 02-25-2022 08-18-2023 Chronic Menstrual disorders (5 sources) Excessive and frequent menstruation with regular cycle; Translations: [Dysmenorrhea, unspecified] Onset: 10-27-2021 Chronic Nausea and vomiting (2 sources) Vomiting; Translations: [Vomiting] Episodic Nutritional deficiencies (13 sources) Vitamin D deficiency; Translations: [Vitamin D deficiency, unspecified] Onset: 05-07-2019 02-25-2022 Chronic Other female genital disorders (1 source) Unspecified dyspareunia; Translations: [UNSPECIFIED DYSPAREUNIA] Onset: 11-04-2021 Chronic Other lower respiratory disease (2 sources) Cough; Translations: [Cough] Episodic Other nutritional; endocrine; and metabolic disorders (1 source) Overweight; Translations: [Overweight] 08-29-2024 Episodic Other screening for suspected conditions (not mental disorders or infectious disease) (6 sources) Encounter for screening mammogram for malignant neoplasm of breast; Translations: [Patient encounter status] Onset: 07-29-2021 Episodic Other upper respiratory infections (2 sources) Acute laryngitis; Translations: [Acute upper respiratory infection, unspecified] Onset: 09-04-2021 Resolved: 09-04-2021 Episodic Substance-related disorders (3 sources) Nicotine dependence, cigarettes, uncomplicated; Translations: [Smoker] Onset: 11-04-2021 01-04-2024 Chronic Unclassified (1 source) CONTACT W/AND (SUSP) EXPOS COVID-19; Translations: [CONTACT W/AND (SUSP) EXPOS COVID-19] Onset: 10-27-2021 Past or Other Problems Problem Classification Problem Date Documented Da te Episodic/Chronic Allergic reactions (4 sources) Allergic contact dermatitis, unspecified cause; Translations: [ALLERG CONTACT DERMATITS UNS CAUSE] Onset: 08-27-2021 Episodic Immunizations and screening for infectious disease (2 sources) Influenza vaccination given; Translations: [Encounter for immunization] Onset: 01-04-2024 01-04-2024 Episodic Mood disorders (16 sources) Depressive disorder; Translations: [Depressive disorder] Onset: 02-25-2022 Resolved: 07-26-2022 07-26-2022 Chronic Mood disorders (14 sources) Mood disorders; Translations: [Depression, unspecified] Onset: 07-26-2022 Resolved: 08-29-2024 07-26-2022 Other aftercare (1 source) Other intermediate frame tender (current) drug therapy; Translations: [OTH HALF-WAY CURRENT DRUG THERAPY] Onset: 11-04-2021 Episodic Other nutritional; endocrine; and metabolic disorders (1 source) Overweight in adulthood with body mass index of 25 or more but less than 30; Translations: [Body mass index (BMI) 29.0-29.9, adult] 08-03-2023 Episodic Ovarian cyst (13 sources) Cyst of ovary; Translations: [Unspecified ovarian cyst, unspecified side] Onset: 02-25-2022 02-25-2022 Episodic Residual codes; unclassified (1 source) Family history of malignant neoplasm of breast; Translations: [FAMILY HX MALIG NEOPLASM OF BREAST] Onset: 08-03-2021 Episodic Unclassified (1 source) Cough R05.9 Onset: 09-04-2021 Resolved: 09-04-2021 Unclassified (10 sources) Onset: 08-03-2023 Resolved: 08-29-2024 08-03-2023 Viral infection (14 sources) Herpes labialis; Translations: [Herpesviral vesicular dermatitis] Onset: 11-24-2017 02-25-2022 Episodic Viral infection (1 source) COVID-19 Onset: 09-04-2021 Resolved: 09-04-2021 Results Test Name Value Interpretation Reference Range Facility IGP,APTIMA HPV,AGE GDLNon AGE GDLN ACOG TESTING Note . [facility] Comment on above: TESTS RESULT FLAG UN ITS REF RANGE LAB Clinician Provided Cytology Information Source.............Vagina No. of containers..01 ThinPrep Vial Age Marin ANGUIANO Viviana... 28 01 FLAG LEGEND: L-Low Normal,H-High Normal,LL-Alert Low,HH-Alert High <-Panic Low,>-Panic High,A-Abnormal,AA-Critical Abnormal Performed at: 01 =[address] [address] Jyoti De Santiago MD, HPV APTIMA Negative Negative [facility] Comment on above: This nucleic acid am plification test detects fourteen high- risk HPV types (16,18,31,33,35,39,45,51,52,56,58,59,66,68) without differentiation. Performed at: =[address] [id number] Residence Counselor: Jyoti De Santiago MD, Phone: [phone] Performed at: [address] [id number] Residence Counselor: Jyoti De Santiago MD, Phone: [phone] IGP, APTIMA HPV, RFX 16/18,45 Note . [facility] Comment on above: TESTS RESULT FLAG UN ITS REF RANGE LAB DIAGNOSIS: 02 NEGATIVE FOR INTRAEPITHELIAL LESION OR MALIGNANCY. Specimen adequacy: 02 Satisfactory for evaluation. Performed by: 02 Barbara Meehan Stunt Person (ASCP) . 02 Note: Note 02 The Pap smear is a screening test designed to aid in the detection of premalignant and malignant conditions of the uterine cervix. It is not a diagnostic procedure and should not be used as the sole means of detecting cervical cancer. Both false-positive and false-negative reports do occur. Test Methodology: Note 02 This liquid based ThinPrep(R) pap test was screened with the use of an image guided system. HPV Genotype Reflex Note 02 Criteria not met, HPV Genotype not performed. FLAG LEGEND: L-Low Normal,H-High Normal,LL-Alert Low,HH-Alert High <-Panic Low,>-Panic High,A-Abnormal,AA-Critical Abnormal Performed at: 02 [facility] [address] [place] [address] Jyoti De Santiago MD, SP[facility] COMPREHENSIVE METABOLIC PANE [place] 08-03-2023 Albumin [Mass/Vol] 4.2 g/dL Normal 3.2-5.3 [facility] Comment on above: Performed By: #### C DOMINGA, 03500-5 #### [facility] ([id number]) [address], [address] [place] [address] ALP [Catalytic activity/Vol] 67 U/L Normal 39-130 [facility] Comment on above: Performed By: #### C DOMINGA, 96460-8 #### [facility] ([id number]) [address], [address] [place] [address] ALT [Catalytic activity/Vol] 19 U/L Normal 0-31 [facility] Comment on above: Performed By: #### Manny ORR, 22835-3 #### [facility] ([id number]) [address], [address] [place] [address] Anion gap [Moles/Vol] 7 mmol/L Normal 5-15 [facility] Comment on above: Performed By: #### Manny ORR, 41425-9 #### [facility] ([id number]) [address], [address] [place] [address] AST [Catalytic activity/Vol] 19 U/L Normal 0-41 [facility] Comment on above: Performed By: #### Manny ORR, 36314-5 #### [facility] ([id number]) [address], [address] [place] [address] Bilirubin [Mass/Vol] 0.7 mg/dL Normal 0.3-1.2 [facility] Comment on above: Performed By: #### Manny ORR, 85687-1 #### [facility] ([id number]) [address], [address] [place] [address] Calcium [Mass/Vol] 9.4 mg/dL Normal 8.5-10.5 [facility] Comment on above: Performed By: #### Manny ORR, 33557-9 #### [facility] ([id number]) [address], [address] [place] [address] Chloride [Moles/Vol] 106 mmol/L Normal 98-109 [facility] Comment on above: Performed By: #### Manny ORR, 43476-3 #### [facility] ([id number]) [address], [address] [place] [address] CO2 [Moles/Vol] 27 mmol/L Normal 22-32 [facility] Comment on above: Performed By: #### Manny ORR, 05983-6 #### [facility] ([id number]) [address], [address] [place] [address] Creatinine [Mass/Vol] 0.79 mg/dL Normal 0.40-1.00 [facility] Comment on above: Result Comment: METH OD TRACEABLE TO IDMS STANDARD Performed By: #### C DOMINGA, 07342-6 #### [facility] ([id number]) [address] [address] [place] [address] eGFR (CKD-EPI) NON-RACE DEPENDENT >90 Normal >59 [facility] Comment on above: Result Comment: Reported eGFR is based on the CKD-EPI 2020 equation that does not use a race coefficient. Performed By: #### Manny ORR, 30671-7 #### [facility] ([id number]) [address] [address] [place] [address] Glucose [Mass/Vol] 102 mg/dL High 65-99 [facility] Comment on above: Performed By: #### Manny ORR, 48343-3 #### [facility] ([id number]) [address] [address] [place] [address] Potassium [Moles/Vol] 3.9 mmol/L Normal 3.5-5.0 [facility] Comment on above: Performed By: #### Manny ORR, 70659-5 #### [facility] ([id number]) [address] [address] [place] [address] Protein [Mass/Vol] 7.4 g/dL Normal 6.0-8.0 [facility] Comment on above: Performed By: #### Manny ORR, 90086-2 #### [facility] ([id number]) [address] [address] [place] [address] Sodium [Moles/Vol] 140 mmol/L Normal 134-146 [facility] Comment on above: Performed By: #### Manny ORR, 11052-7 #### [facility] ([id number]) [address] [address] [place] [address] Urea nitrogen [Mass/Vol] 11 mg/dL Normal 5-23 [facility] Comment on above: Performed By: #### Manny ORR, 49243-1 #### [facility] ([id number]) [address], [address] [place] [address] Lipid 1996 panelon 4 Cholesterol [Mass/Vol] 124 mg/dL Low 150-200 [facility] Comment on above: Performed By: #### Manny ORR, 01141-5 #### [facility] ([id number]) [address] [place] [address] Cholesterol in HDL [Mass/Vol] 41 mg/dL Normal >39 [facility] Comment on above: Result Comment: HDL <40 mg/dL - High Risk HDL > or = 40mg/dL- Desirable HDL >60 mg/dL - Negative Risk Performed By: #### Manny ORR, 00893-1 #### [facility] ([id number]) [address] [place] [address] Cholesterol in LDL [Mass/Vol] 50 mg/dL Normal <130 [facility] Comment on above: Result Comment: LDL <100 mg/dL - Desirable LDL >160 mg/dL - High Risk Performed By: #### Manny ORR, 66619-5 #### [facility] ([id number]) [address] [place] [address] Cholesterol in VLDL [Mass/Vol] 33 mg/dL High 0-30 [facility] Comment on above: Performed By: #### Manny ORR, 87660-0 #### [facility] ([id number]) [address] [place] [address] CHOLESTEROL:HDL 3.0 Normal 1.0-5.0 [facility] Comment on above: Performed By: #### C DOMINGA, 24607-2 #### [facility] ([id number]) [address] [place] [address] Triglyceride [Mass/Vol] 165 mg/dL High 27-150 [facility] Comment on above: Performed By: #### C DOMINGA, 61682-4 #### [facility] ([id number]) [address] [place] [address] BUNon 10-30-2021 Urea nitrogen [Mass/Vol] 7.0 mg/dL Normal 7.0-18.0 [facility] Comment on above: Performed By: #### C LEONA, BUN #### [facility] [address] [place] [address] Dr. Sin Watkins CBC AUTO DIFFon 10-30-2021 BASO # 0.0 103/ul Normal 0.0-0.1 [facility] Comment on above: Performed By: #### C BC #### [facility] [address] [place] [address] Dr. Sin Watkins Basophils/100 WBC (Bld) 0.1 % Critically low 0.2-2.0 [facility] Comment on above: Performed By: #### C BC #### [facility] [address] [place] [address] Dr. Sin Watkins EO # 0.0 103/ul Normal 0.0-0.7 [facility] Comment on above: Performed By: #### C BC #### [facility] [address] [place] [address] Dr. Sin Watkins Eosinophils/100 WBC (Bld) 0.0 % Critically low 0.9-7.0 [facility] Comment on above: Performed By: #### C BC #### [facility] [address] [place] [address] Dr. Sin Watkins Erythrocyte distribution width (RBC) [Ratio] 12.2 % Normal 11.0-15.0 [facility] Comment on above: Performed By: #### C BC #### [facility] [address] [place] [address] Dr. Sin Watkins Hematocrit (Bld) [Volume fraction] 39.3 % Normal 36.0-48.0 [facility] Comment on above: Performed By: #### C BC #### [facility] [address] [place] [address] Dr. Sin Watkins Hemoglobin (Bld) [Mass/Vol] 13.0 g/dL Normal 12.0-16.0 [facility] Comment on above: Performed By: #### C BC #### [facility] [address] [place] [address] Dr. Sin Watkins IG # 0.08 10e3/ul Critically high 0.00-0.03 [facility] Comment on above: Performed By: #### C BC #### [facility] [address] [place] [address] Dr. Sin Watknis IG % 0.5 % Normal 0.0-0.5 [facility] Comment on above: Performed By: #### C BC #### [facility] [address] [place] [address] Dr. Sin Watkins LYMPH # 1.7 103/ul Normal 1.2-3.8 [facility] Comment on above: Performed By: #### C BC #### [facility] [address] [place] [address] Dr. Sin Watkins Lymphocytes/100 WBC (Bld) 10.3 % Critically low 20.5-60.0 [facility] Comment on above: Performed By: #### C BC #### [facility] [address] [place] [address] Dr. Sin Watkins MANUAL DIFF REQ NO Normal [facility] Comment on above: Performed By: #### C BC #### [facility] [address] [place] [address] Dr. Sin Watkins MCH (RBC) [Entitic mass] 31.3 pg Normal 26.7-34.0 [facility] Comment on above: Performed By: #### C BC #### [facility] [address] [place] [address] Dr. Sin Watkins MCHC (RBC) [Mass/Vol] 33.1 g/dL Normal 29.9-35.2 [facility] Comment on above: Performed By: #### C BC #### [facility] [address] [place] [address] Dr. Sin Watkins MCV (RBC) [Entitic vol] 94.7 fL Normal 81.0-99.0 [facility] Comment on above: Performed By: #### C BC #### [facility] [address] [place] [address] Dr. Sin Watkins MONO # 0.7 103/ul Normal 0.3-0.8 [facility] Comment on above: Performed By: #### C BC #### [facility] [address] [place] [address] Dr. Sin Watkins Monocytes/100 WBC (Bld) 4.3 % Normal 1.7-12.0 [facility] Comment on above: Performed By: #### C BC #### [facility] [address] [place] [address] Dr. Sin Watkins NEUT # 14.4 103/ul Critically high 1.4-6.5 [facility] Comment on above: Performed By: #### C BC #### [facility] [address] [place] [address] Dr. Sin Watkins Neutrophils/100 WBC (Bld) 84.8 % Critically high 43.0-75.0 [facility] Comment on above: Performed By: #### C BC #### [facility] [address] [place] [address] Dr. Sni Watkins Platelet mean volume (Bld) [Entitic vol] 11.6 fL Normal 9.5-13.5 [facility] Comment on above: Performed By: #### C BC #### [facility] [address] [place] [address] Dr. Sin Watkins PLT 182 103/ul Normal 150-450 [facility] Comment on above: Performed By: #### C BC #### [facility] [place] [facility] [address] [address] [address] Sin Watkins RBC 4.15 106/ul Critically low 4.20-5.40 [facility] Comment on above: Performed By: #### C BC #### [facility] [place] [facility] [address] [address] [address] Sin Watkins WBC 16.9 103/ul Critically high 4.0-11.0 [facility] Comment on above: Performed By: #### C BC #### [facility] [place] [facility] [address] [address] [address] Sin Watkins CREATININEon 10-30-2021 Creatinine [Mass/Vol] 0.72 mg/dL Normal 0.55-1.02 [facility] [place] Comment on above: Performed By: #### C LEONA, BUN #### [facility] [place] [facility] [address] [address] [address] Sin Watkins EGFR-AF INDONESIAN >60 Normal >=60 [facility] Comment on above: Performed By: #### C LEONA, BUN #### [facility] [place] [facility] [address] [address] [address] Sin Watkins EGFR-NON AF INDONESIAN >60 Normal >=60 [facility] [place] Comment on above: Performed By: #### C LEONA, BUN #### [facility] [place] [facility] [address] [address] [address] Sin Watkins CBC AUTO DIFFon 10-29-2021 BASO # 0.0 103/ul Normal 0.0-0.1 [facility] [place] Comment on above: Performed By: #### C BC ####[facility] [place] [facility] [address] [address]Dr. Sin Watkins Basophils/100 WBC (Bld) 0.3 % Normal 0.2-2.0 [facility] [place] Comment on above: Performed By: #### C BC ####[facility] [place] [facility] [address] [address]Dr. Sin Watkins EO # 0.1 103/ul Normal 0.0-0.7 [facility] [place] Comment on above: Performed By: #### C BC ####[facility] [place] [facility] [address] [address]Dr. Sin Watkins Eosinophils/100 WBC (Bld) 1.5 % Normal 0.9-7.0 [facility] [place] Comment on above: Performed By: #### C BC ####[facility] [place] [facility] [address] [place], [place] [address]Dr. Sin Watkins Erythrocyte distribution width (RBC) [Ratio] 12.2 % Normal 11.0-15.0 [facility] [place] Comment on above: Performed By: #### C BC ####[facility] [place] [facility] [address] [place], [place] [address]Dr. Sin Watkins Hematocrit (Bld) [Volume fraction] 44.8 % Normal 36.0-48.0 [facility] [place] Comment on above: Performed By: #### C BC ####[facility] [place] [facility] [address] [place], [place] [address]Dr. Sin Watkins Hemoglobin (Bld) [Mass/Vol] 15.5 g/dL Normal 12.0-16.0 [facility] [place] [facility] Comment on above: Performed By: #### C BC ####[facility] [place] [facility] [address] [place], [place] [address]Dr. Sin Watkins IG # 0.02 10e3/ul Normal 0.00-0.03 [facility] [place] [facility] Comment on above: Performed By: #### C BC ####[facility] [place] [facility] [address] [place], [place] [address]Dr. Sin Watkins IG % 0.3 % Normal 0.0-0.5 [facility] [place] [facility] Comment on above: Performed By: #### C BC ####[facility] [place] [facility] [address] [place], [place] [address]Dr. Sin Roland LYMPH # 3.1 103/ul Normal 1.2-3.8 [facility] [place] [facility] Comment on above: Performed By: #### C BC ####[facility] [place] [facility] [address] [place], [place] [address]Dr. Sin Roland Lymphocytes/100 WBC (Bld) 41.8 % Normal 20.5-60.0 [facility] [place] Comment on above: Performed By: #### C BC ####[facility] [place] [facility] [address] [address]Dr. Sin Watkins MANUAL DIFF REQ NO Normal [facility] Comment on above: Performed By: #### C BC ####[facility] [place] [facility] [address] [id number]. Sin Watkins MCH (RBC) [Entitic mass] 31.6 pg Normal 26.7-34.0 [facility] [place] Comment on above: Performed By: #### C BC ####[facility] [place] [facility] [address] [address]Dr. Sin Watkins MCHC (RBC) [Mass/Vol] 34.6 g/dL Normal 29.9-35.2 [facility] [place] [facility] Comment on above: Performed By: #### C BC ####[facility] [place] [facility] [address] [place], [place] [address]Dr. Sin Watkins MCV (RBC) [Entitic vol] 91.4 fL Normal 81.0-99.0 [facility] [place] Comment on above: Performed By: #### C BC ####[facility] [place] [facility] [address] [place], [place] [address]Dr. Sin Watkins MONO # 0.5 103/ul Normal 0.3-0.8 [facility] [place] Comment on above: Performed By: #### C BC ####[facility] [place] [facility] [address] [place], [place] [address]Dr. Sin Watkins Monocytes/100 WBC (Bld) 7.3 % Normal 1.7-12.0 [facility] [place] [facility] Comment on above: Performed By: #### C BC ####[facility] [place] [facility] [address] [place], [place] [address]DrMateo Watkins NEUT # 3.6 103/ul Normal 1.4-6.5 [facility] [place] [facility] Comment on above: Performed By: #### C BC ####[facility] [place] [facility] [address] [place], [place] [address]DrMateo Watkins Neutrophils/100 WBC (Bld) 48.8 % Normal 43.0-75.0 [facility] [place] Comment on above: Performed By: #### C BC ####[facility] [place] [facility] [address] [place], [place] [address]Ov. Sin Watkins Platelet mean volume (Bld) [Entitic vol] 10.7 fL Normal 9.5-13.5 [facility] [place] Comment on above: Performed By: #### C BC ####[facility] [place] [facility] [address] [place], [place] [address]Xg. Sin Watkins PLT 192 103/ul Normal 150-450 [facility] [place] [facility] Comment on above: Performed By: #### C BC ####[facility] [place] [facility] [address] [place], [place] [address]Qq. Monairasema Roland RBC 4.90 106/ul Normal 4.20-5.40 [facility] [place] Comment on above: Performed By: #### C BC ####[facility] [place] [facility] [address] [address]Dr. Sin Watkins WBC 7.4 103/ul Normal 4.0-11.0 [facility] [place] Comment on above: Performed By: #### C BC ####[facility] [place] [facility] [address] [place], [place] [address]ItMateo Watkins PREG HCG QUALon 10-29-2021 , QUAL Negative Normal NEGATIVE [facility] Comment on above: Performed By: #### P REG #### [facility] [place] [facility] [address] [place], [place] [address] Dr. Sin Watkins Covid-19 PCR (CVDTB)on SARS-CoV-2 (COVID-19) RNA AVTAR+probe Ql (Unsp spec) Not detected Normal NOT DETECTED [facility] [place] [facility] Comment on above: Result Comment: This test is not yet approved or cleared by the [place] FDA. When there are no FDA-approved or cleared tests available, and other criteria are met, FDA can make tests available under an emergency access mechanism called an Emergency Use Authorization (EUA). The EUA for this test is supported by the [place] of Health and Human Service's (HHS's) declaration [...] with SARS-CoV-2. Performed By: #### C VDTB ####[facility] [place] [facility] [address] [place], [place] [address]Sw. Sin Watkins TYPE AND SCREENon 10-26-2021 TYPE AND SCREEN Negative Normal [facility] Comment on above: Performed By: #### T NS ####[facility] [place] [facility] [address] [place], [place] [address]Zc. Sin Roland DRUG TOX MONITORING 5 W/CONF , URINEon 09-29-2021 Amphetamines Negative Normal <500 [facility] Comment on above: Performed By: #### 9 1485 #### [facility] of [address] [address] Flanging Machine Operator: Francis Saunders MD Benzodiazepines Negative Normal <100 [facility] Comment on above: Performed By: #### 9 1485 #### [facility] [address] [place] [address] Flanging Machine Operator: Francis Saunders MD Buprenorphine Negative Normal <5 [facility] Comment on above: Performed By: #### 9 1485 #### [facility] [address] [address] Flanging Machine Operator: Francis Saunders MD Cocaine Metabolite Negative Normal <150 [facility] Comment on above: Performed By: #### 9 1485 #### [facility] [address] [place] [address] Flanging Machine Operator: Francis Saunders MD COMMENT Normal [facility] [...] interpreting these drug results, please contact a [employer] Toxicology Specialist: [phone] ( ), M-F, 8am-6pm EST. Performed By: #### 9 1485 #### [facility] of [address], [address] [place] [address] Flanging Machine Operator: Francis Saunders MD Heroin Metabolite Negative Normal <10 [facility] Comment on above: Performed By: #### 9 1485 #### [facility] of [address], [address] [place] [address] Flanging Machine Operator: Francis Saunders MD Marijuana Metabolite 20 Negative Normal <20 [facility] Comment on above: Performed By: #### 9 1485 #### [facility] [address], [address] [place] [address] Flanging Machine Operator: Francis Saunders MD Methadone Metabolite Negative Normal <100 [facility] Comment on above: Performed By: #### 9 1485 #### [facility] of [address] [place] [address], [address] [place] [address] Flanging Machine Operator: Francis Saunders MD Opiates Negative Normal <100 [facility] Comment on above: Performed By: #### 9 1485 #### [facility] of [address] [place] [address] Flanging Machine Operator: Francis Saunders MD Oxycodone Negative Normal <100 [facility] Comment on above: Performed By: #### 9 1485 #### [facility] of [address] [address] [address] [place] [address] Flanging Machine Operator: Francis Saunders MD Phencyclidine Negative Normal <25 [facility] Comment on above: Performed By: #### 9 1485 #### [facility] of [address] [address], [address] [place] [address] Flanging Machine Operator: Francis Saunders MD SARS-CoV-2 (COVID-19) RNA NA A+probe Ql (Resp)on 09-04-2021 SARS-CoV-2 (COVID-19) RNA AVTAR+probe Ql (Unsp spec) Positive idemama Other ANDIE by IFAon 08-30-2021 Antinuclear Antibodies, IFA Negative Normal [facility] [place] [facility] Comment on above: Result Comment: Nega tive <1:80 Borderline 1:80 Positive >1:80 ICAP nomenclature: AC-0 For more information about Hep-2 cell patterns use ANApatterns.org, the official website for the International Consensus on Antinuclear Antibody (ANDIE) Patterns (ICAP). Performed By: #### A NAIFA ####[facility] [place] [facility] [address] [address]Dr. Sin Watkins CBC AUTO DIFFon 08-27-2021 BASO # 0.0 103/ul Normal 0.0-0.1 [facility] [place] Comment on above: Performed By: #### C BC ####[facility] [place] [facility] [address] [place], [place] [address]Dr. Sin Watkins Basophils/100 WBC (Bld) 0.1 % Critically low 0.2-2.0 [facility] [place] Comment on above: Performed By: #### C BC ####[facility] [place] [facility] [address] [place], [place] [address]Dr. Sin Watkins EO # 0.1 103/ul Normal 0.0-0.7 [facility] [place] [facility] Comment on above: Performed By: #### C BC ####[facility] [place] [facility] [address] [place], [place] [address]Dr. Sin Watkins Eosinophils/100 WBC (Bld) 1.2 % Normal 0.9-7.0 [facility] [place] [facility] Comment on above: Performed By: #### C BC ####[facility] [place] [facility] [address] [place], [place] [address]Dr. Sin Watkins Erythrocyte distribution width (RBC) [Ratio] 12.4 % Normal 11.0-15.0 [facility] [place] [facility] Comment on above: Performed By: #### C BC ####[facility] [place] [facility] [address] [place], [place] [address]Dr. Sin Watkins Hematocrit (Bld) [Volume fraction] 46.1 % Normal 36.0-48.0 [facility] [place] Comment on above: Performed By: #### C BC ####[facility] [place] [facility] [address] [address]DrMateo Watkins Hemoglobin (Bld) [Mass/Vol] 15.6 g/dL Normal 12.0-16.0 [facility] [place] Comment on above: Performed By: #### C BC ####[facility] [place] [facility] [address] [address]DrMateo Watkins IG # 0.02 10e3/ul Normal 0.00-0.03 [facility] [place] Comment on above: Performed By: #### C BC ####[facility] [place] [facility] [address] [place], [place] [address]DrMateo Watkins IG % 0.3 % Normal 0.0-0.5 [facility] [place] Comment on above: Performed By: #### C BC ####[facility] [place] [facility] [address] [place], [place] [address]DrMateo Watkins LYMPH # 2.1 103/ul Normal 1.2-3.8 [facility] [place] Comment on above: Performed By: #### C BC ####[facility] [place] [facility] [address] [place], [place] [address]DrMateo Watkins Lymphocytes/100 WBC (Bld) 28.7 % Normal 20.5-60.0 [facility] [place] Comment on above: Performed By: #### C BC ####[facility] [place] [facility] [address] [address]DrMateo Watkins MANUAL DIFF REQ NO Normal [facility] Comment on above: Performed By: #### C BC ####[facility] [place] [facility] [address] [address]DrMateo Watkins MCH (RBC) [Entitic mass] 31.5 pg Normal 26.7-34.0 [facility] [place] Comment on above: Performed By: #### C BC ####[facility] [place] [facility] [address] [address]DrMateo Watkins MCHC (RBC) [Mass/Vol] 33.8 g/dL Normal 29.9-35.2 [facility] [place] Comment on above: Performed By: #### C BC ####[facility] [place] [facility] [address] [address]Dr. Sin Roland MCV (RBC) [Entitic vol] 92.9 fL Normal 81.0-99.0 [facility] [place] Comment on above: Performed By: #### C BC ####[facility] [place] [facility] [address] [address]Dr. Sin Roland MONO # 0.4 103/ul Normal 0.3-0.8 [facility] [place] Comment on above: Performed By: #### C BC ####[facility] [place] [facility] [address] [address]Dr. Sin Watkins Monocytes/100 WBC (Bld) 5.7 % Normal 1.7-12.0 [facility] [place] [facility] Comment on above: Performed By: #### C BC ####[facility] [place] [facility] [address] [place], [place] [address]Dr. Sin Watkins NEUT # 4.8 103/ul Normal 1.4-6.5 [facility] [place] [facility] Comment on above: Performed By: #### C BC ####[facility] [place] [facility] [address] [place], [place] [address]Dr. Monairasema Watkins Neutrophils/100 WBC (Bld) 64.0 % Normal 43.0-75.0 [facility] [place] [facility] Comment on above: Performed By: #### C BC ####[facility] [place] [facility] [address] [place], [place] [address]Dr. Sin Watkins Platelet mean volume (Bld) [Entitic vol] 11.4 fL Normal 9.5-13.5 [facility] [place] [facility] Comment on above: Performed By: #### C BC ####[facility] [place] [facility] [address] [place], [place] [address]Dr. Sin Watkins PLT 224 103/ul Normal 150-450 [facility] [place] [facility] Comment on above: Performed By: #### C BC ####[facility] [place] [facility] [address] [address]Dr. Sin Watkins RBC 4.96 106/ul Normal 4.20-5.40 [facility] [place] [facility] Comment on above: Performed By: #### C BC ####[facility] [place] [facility] [address] [address]Dr. Sin Watkins WBC 7.4 103/ul Normal 4.0-11.0 [facility] [place] Comment on above: Performed By: #### C BC ####[facility] [place] [facility] [address] [address]Dr. Sin Watkins PREG QUANT HCGon 08-27-2021 HCG QUANT <1 Normal [facility] [place] Comment on above: Performed By: #### P REGQNT, TSH #### [facility] [place] [facility] [address] [address] [address] Sin Watkins HCG RANGE SEE BELOW Normal [facility] [place] [facility] Comment on above: Result Comment: 5-50 0-1 WEEK 40-300 1-2 WEEKS 100-1,000 2-3 WEEKS 500-6,000 3-4 WEEKS 5,000-200,000 1-2 MONTHS 10,000-100,000 2-3 MONTHS 3,000-50,000 2ND TRIMESTER 1,000-50,000 3RD TRIMESTER Performed By: #### P REGQNT, TSH #### [facility] [place] [facility] [address] [address] [address] Sin Watkins PROTIMEon 08-27-2021 INR Coag (PPP) [Relative time] 1.00 {INR} Normal [facility] [place] Comment on above: Performed By: #### P T, PTT #### [facility] [place] [facility] [address] [address] [address] Sin Watkins INR GUIDELINES SEE BELOW Normal [facility] Comment on above: Result Comment: MALATHI RED INR: 2.0 - 3.0 CONDITIONS NOT LISTED BELOW 2.5 - 3.5 FOR PROSTHETIC HEART VALVE REPLACEMENT 2.5 - 3.5 RECURRENT THROMBOSIS Performed By: #### P T, PTT #### [facility] [place] [facility] [address] [address] [address] Sin Watkisn PT Coag (PPP) [Time] 10.8 s Normal 9.0-11.6 [facility] [place] Comment on above: Performed By: #### P T, PTT #### [facility] [place] [facility] [address] [place] [address] Dr. Sin Watkins PTTon 08-27-2021 aPTT Coag (Bld) [Time] 28.8 s Normal 22.3-36.2 [facility] [place] Comment on above: Performed By: #### P T, PTT #### [facility] [place] [facility] [address] [place] [address] Dr. Sin Watkins TSHon 08-27-2021 TSH 0.760 uIU/mL Normal 0.358-3.740 [facility] Comment on above: Performed By: #### P REGQNT, TSH #### [facility] [place] [facility] [address] [place] [address] Dr. Sin Watkins TSH RANGE SEE BELOW Normal [facility] [place] Comment on above: Result Comment: <0.3 4 UIU/ml HYPERTHYROID 0.34-5.60 UIU/ml EUTHYROID >5.60 UIU/ml HYPOTHYROID Performed By: #### P REGQNT, TSH #### [facility] [place] [facility] [address] [place] [address] Dr. Sin Watkins US PELVIS AND TRANSVAGon [...] FRANCOIS HORTON Date: 2021-08-27 17:53 Normal [facility] [place] [facility] MG MAMM SCREEN 3D SERA CADon 07-29-2021 MG MAMM SCREEN 3D SERA CAD Patient: MADAI JONES Exam Date: 07/29/2021 : 1980 Gender:F Ordering : DR KRISTA GUTIÉRREZ Admission #: [id number] Family : Order #: [id number] CLICK HERE TO VIEW EXAM RADIOLOGY REPORT [...] breast cancer at age 52. LOCATION: [facility] [place] [facility] BREAST COMPOSITION: Extremely dense, which [...] MD on 07/30/2021 at 08:24 Normal [facility] [place] [facility] COMPREHENSIVE METABOLIC PANE [place] 06-13-2021 Albumin [Mass/Vol] 4.4 g/dL Normal 3.6-5.1 [facility] Comment on above: Performed By: #### 1 7306, 43296, 7569, 19202 #### [facility] [address], [address] [place] [phone] Flanging Machine Operator: Francis Saunders MD Albumin/Globulin [Mass ratio] 1.5 {ratio} Normal 1.0-2.5 [facility] Comment on above: Performed By: #### 1 7306, 98566, 2660, 03715 #### [facility] [address], [address] [place] [phone] Flanging Machine Operator: Francis Saunders MD ALP [Catalytic activity/Vol] 82 U/L Normal 31-125 [facility] Comment on above: Performed By: #### 1 7306, 53865, 7600, 21321 #### [facility] of [place] [address] Flanging Machine Operator: Francis Saunders MD ALT [Catalytic activity/Vol] 18 U/L Normal 6-29 [facility] Comment on above: Performed By: #### 1 7306, 36099, 7600, 09644 #### [facility] of [place] [address] Flanging Machine Operator: Francis Saunders MD AST [Catalytic activity/Vol] 18 U/L Normal 10-30 [facility] Comment on above: Performed By: #### 1 7306, 02658, 7600, 17184 #### [facility] of [place] [address] Flanging Machine Operator: Francis Saunders MD Bilirubin [Mass/Vol] 0.6 mg/dL Normal 0.2-1.2 [facility] Comment on above: Performed By: #### 1 7306, 72702, 7600, 75078 #### [facility] of [place] [address] Flanging Machine Operator: Francis Saunders MD BUN/CREATININE RATIO NOT APPLICABLE Normal 6-22 [facility] Comment on above: Performed By: #### 1 7306, 44402, 7600, 75776 #### [facility] of [place] [address] Flanging Machine Operator: Francis Saunders MD Calcium [Mass/Vol] 9.6 mg/dL Normal 8.6-10.2 [facility] Comment on above: Performed By: #### 1 7306, 56735, 7600, 12560 #### [facility] of [place] [address] Flanging Machine Operator: Francis Saunders MD Chloride [Moles/Vol] 105 mmol/L Normal 98-110 [facility] Comment on above: Performed By: #### 1 7306, 85975, 7600, 94726 #### [facility] of [place] [address] Flanging Machine Operator: Francis Saunders MD CO2 [Moles/Vol] 25 mmol/L Normal 20-32 [facility] Comment on above: Performed By: #### 1 7306, 13378, 0, 73736 #### [facility] of [place] [address] Flanging Machine Operator: Francis Saunders MD Creatinine [Mass/Vol] 0.75 mg/dL Normal 0.50-1.10 [facility] Comment on above: Performed By: #### 1 7306, 19902, 0, 41338 #### [facility] of [place] [address] Flanging Machine Operator: Francis Saunders MD eGFR NON-AFR. INDONESIAN 98 mL/min/1.73m2 Normal > OR = 60 [facility] Comment on above: Performed By: #### 1 7306, 38793, 0, 65560 #### [facility] of [place] [address] Flanging Machine Operator: Francis Saunders MD GFR/1.73 sq M.predicted among blacks MDRD (S/P/Bld) [Vol rate/Area] 114 mL/min/{1.73_m2} Normal > OR = 60 [facility] Comment on above: Performed By: #### 1 7306, 00839, 0, 19560 #### [facility] of [place] [address] Flanging Machine Operator: Francis Saunders MD Globulin (S) [Mass/Vol] 3.0 g/dL Normal 1.9-3.7 [facility] Comment on above: Performed By: #### 1 7306, 52408, 7600, 18117 #### [facility] of [place] [address] Flanging Machine Operator: Francis Saunders MD Glucose [Mass/Vol] 103 mg/dL High 65-99 [facility] Comment on above: Result Comment: Fasting reference interval For someone without known diabetes, a glucose value between 100 and 125 mg/dL is consistent with prediabetes and should be confirmed with a follow-up test. Performed By: #### 1 7306, 30031, 7600, 66508 #### [facility] [address], [address] [place] [address] Flanging Machine Operator: Francis Saunders MD Potassium [Moles/Vol] 4.1 mmol/L Normal 3.5-5.3 [facility] Comment on above: Performed By: #### 1 7306, 39619, 7600, 18494 #### [facility] [place] [address] Flanging Machine Operator: Francis Saunders MD Protein [Mass/Vol] 7.4 g/dL Normal 6.1-8.1 [facility] Comment on above: Performed By: #### 1 7306, 23476, 7600, 32129 #### [facility] [place] [address] Flanging Machine Operator: Francis Saunders MD Sodium [Moles/Vol] 139 mmol/L Normal 135-146 [facility] Comment on above: Performed By: #### 1 7306, 05894, 7600, 08474 #### [facility] [place] [address] Flanging Machine Operator: Francis Saunders MD Urea nitrogen [Mass/Vol] 8 mg/dL Normal 7-25 [facility] Comment on above: Performed By: #### 1 7306, 41333, 7600, 17412 #### [facility] of [place] [address] Flanging Machine Operator: Francis Saunders MD LIPID PANEL, [facility] - Cholesterol [Mass/Vol] 393 mg/dL High <200 [facility] Comment on above: Order Comment: FASTI NG:YES FASTING: YES Performed By: #### 1 7306, 91893, 7600, 46405 #### [facility] of [address], [address] Flanging Machine Operator: Francis Saunders MD Cholesterol in HDL [Mass/Vol] 39 mg/dL Low > OR = 50 [facility] Comment on above: Order Comment: FASTI NG:YES FASTING: YES Performed By: #### 1 7306, 96073, 7600, 09611 #### [facility] [address], [address] Flanging Machine Operator: Francis Saunders MD Cholesterol in LDL [Mass/Vol] 290 mg/dL High [employer] Comment on above: Order Comment: FASTI NG:YES FASTING: YES Result Comment: LDL- C levels > or = 190 mg/dL may indicate familial hypercholesterolemia (FH). Clinical assessment and measurement of blood lipid levels should be considered for all first degree relatives of patients with an FH diagnosis. For questions about testing for familial hypercholesterolemia, please call [facility] at [email or web address]. Smita T, et al. J National Lipid [...] equation in the estimation of LDL-C. Sergio SS et al. JOEL. 2013;310(19): 1073-7792 (http://education.[employer]/faq/DSZ770) Performed By: #### 1 7306, 42971, 7600, 78413 #### [facility] [address], [address] [place], [place] [id number] Flanging Machine Operator: Francis Saunders MD Cholesterol.total/C holesterol in HDL [Mass ratio] 10.1 {ratio} High <5.0 [employer] Comment on above: Order Comment: FASTI NG:YES FASTING: YES Performed By: #### 1 7306, 22461, 7600, 85645 #### [facility] [place] [address] Flanging Machine Operator: Francis Saunders MD NON HDL CHOLESTEROL [...] therapeutic option. Performed By: #### 1 7306, 01720, 7000, 61367 #### [facility] [place] [address] Flanging Machine Operator: Francis Saunders MD Triglyceride [Mass/Vol] 377 mg/dL High <150 [facility] Comment on above: Order Comment: FASTI NG:YES FASTING: YES Result Comment: If a non-fasting specimen was collected, consider repeat triglyceride testing on a fasting specimen if clinically indicated. Smita et al. J. of Clin. Lipidol. 2015;9:129-169. Performed By: #### 1 7306, 62339, 7040, 60553 #### [facility] [place] [address] Flanging Machine Operator: Francis Saunders MD TSH+FREE T4on 06-13-2021 Free T4 [Mass/Vol] 1.0 ng/dL Normal 0.8-1.8 [facility] Comment on above: Performed By: #### 1 7306, 90978, 4510, 82615 #### [facility] [place] [address] Flanging Machine Operator: Francis Saunders MD TSH Qn 0.47 m[IU]/L Normal [facility] Comment on above: Result Comment: Refe rence Range > or = 20 Years 0.40-4.50 Ranges First trimester 0.26-2.66 Second trimester 0.55-2.73 Third trimester 0.43-2.91 Performed By: #### 1 7306, 62554, 7600, 64746 #### [facility] [address], [address] [place] [address] Flanging Machine Operator: Francis Saunders MD VITAMIN D,25-OH,TOTAL,IAon 0 [...] D, (D2,D3), LC/MS/MS is recommended: order code [id number] (patients >2yrs). See Note 1 Note 1 For additional information, please refer to http://education.Mobyko/faq/GXW877 (This link is being provided for informational/ educational purposes only.) Performed By: #### 1 7306, 78807, 7600, 54803 #### [facility] [address], [address] [place], [place] [address] Flanging Machine Operator: Francis Saunders MD Vital Signs Date Time Vital Sign Value Performing Clinician Facility 09-17-2024 11:54-0400 Diastolic blood pressure 80 mm[Hg] Ryan Furlong DO Work Phone: [facility] 09-17-2024 11:54-0400 Heart rate 81 /min Ryan Furlong DO Work Phone: [facility] 09-17-2024 11:54-0400 SaO2% (BldA) [Mass fraction] 98 % Ryan Furlong DO Work Phone: [facility] 09-17-2024 11:54-0400 Systolic blood pressure 128 mm[Hg] Ryan Furlong DO Work Phone: [facility] 08-29-2024 10:20-0400 Body height 167.6 cm Ryan Furlong DO Work Phone: [facility] [employer] 08-29-2024 10:20-0400 Body mass index (BMI) [Ratio] 28.55 kg/m2 Ryan Furlong DO Work Phone: [facility] [employer] 08-29-2024 10:20-0400 Body temperature 97.11 [degF] Ryan Furlong DO Work Phone: [facility] [employer] 08-29-2024 10:20-0400 Body weight 80.2 kg Ryan Furlong DO Work Phone: [facility] [employer] 08-29-2024 10:20-0400 Diastolic blood pressure 78 mm[Hg] Ryan Furlong DO Work Phone: [facility] [employer] 08-29-2024 10:20-0400 Heart rate 103 /min Ryan Furlong DO Work Phone: [facility] [employer] 08-29-2024 10:20-0400 Respiratory rate 18 /min Ryan Furlong DO Work Phone: [facility] 08-29-2024 10:20-0400 SaO2% (BldA) [Mass fraction] 98 % Ryan Furlong DO Work Phone: [facility] [employer] 08-29-2024 10:20-0400 Systolic blood pressure 110 mm[Hg] Ryan Furlong DO Work Phone: [facility] 06-06-2024 08:49-0400 Body height 167.6 cm Jinny BOONE Work Phone: [facility] 06-06-2024 08:49-0400 Body mass index (BMI) [Ratio] 27.6 kg/m2 Jinny BOONE Work Phone: [facility] 06-06-2024 08:49-0400 Body weight 77.56 kg Jinny BOONE Work Phone: [facility] 06-06-2024 08:49-0400 Diastolic blood pressure 72 mm[Hg] Jinny Yadav PA Work Phone: [facility] 06-06-2024 08:49-0400 Heart rate 88 /min Jinny Yadav PA Work Phone: [facility] 06-06-2024 08:49-0400 Respiratory rate 16 /min Jinny Yadav PA Work Phone: [facility] 06-06-2024 08:49-0400 SaO2% (BldA) [Mass fraction] 96 % Jinny Yadav PA Work Phone: [facility] 06-06-2024 08:49-0400 Systolic blood pressure 112 mm[Hg] Jinny Yadav PA Work Phone: [facility] 05-20-2024 09:41-0500 Diastolic blood pressure 86 mm[Hg] Christopher Reuben DO Work Phone: [facility] 05-20-2024 09:41-0500 Heart rate 86 /min Christopher Reuben DO Work Phone: [facility] 05-20-2024 09:41-0500 SaO2% (BldA) [Mass fraction] 99 % Christopher Reuben DO Work Phone: [facility] 05-20-2024 09:41-0500 Systolic blood pressure 122 mm[Hg] Christopher Reuben DO Work Phone: [facility] 05-14-2024 09:09-0500 Body weight 78.47 kg Jackie BOONE Work Phone: [facility] 05-14-2024 09:09-0500 Diastolic blood pressure 66 mm[Hg] Jackie BOONE Work Phone: [facility] 05-14-2024 09:09-0500 Systolic blood pressure 98 mm[Hg] Jackie BOONE Work Phone: [facility] 02-20-2024 08:13-0500 Diastolic blood pressure 76 mm[Hg] Christopher Reuben DO Work Phone: [facility] 02-20-2024 08:13-0500 Heart rate 79 /min Patria Alexis DO Work Phone: [facility] 02-20-2024 08:13-0500 SaO2% (BldA) [Mass fraction] 96 % Patria Alexis DO Work Phone: [facility] 02-20-2024 08:13-0500 Systolic blood pressure 118 mm[Hg] Patria Alexis DO Work Phone: [facility] 01-04-2024 14:21-0400 Body height 167.6 cm Honeygracie Cox BUSINESS ENTERPRISE OFFICER-AREA COORDINATOR Work Phone: [facility] 01-04-2024 14:21-0400 Body mass index (BMI) [Ratio] 28.28 kg/m2 Honeygracie Cox BUSINESS ENTERPRISE OFFICER-AREA COORDINATOR Work Phone: [facility] 01-04-2024 14:21-0400 Body temperature 97.9 [degF] Honeygracie Cox BUSINESS ENTERPRISE OFFICER-AREA COORDINATOR Work Phone: [facility] 01-04-2024 14:21-0400 Body weight 79.47 kg Honey Cox BUSINESS ENTERPRISE OFFICER-AREA COORDINATOR Work Phone: [facility] 01-04-2024 14:21-0400 Diastolic blood pressure 64 mm[Hg] Honey Cox BUSINESS ENTERPRISE OFFICER-AREA COORDINATOR Work Phone: [facility] 01-04-2024 14:21-0400 Heart rate 90 /min Honey Adelaida BUSINESS ENTERPRISE OFFICER-AREA COORDINATOR Work Phone: [facility] 01-04-2024 14:21-0400 SaO2% (BldA) [Mass fraction] 97 % Honey Adelaida BUSINESS ENTERPRISE OFFICER-AREA COORDINATOR Work Phone: [facility] 01-04-2024 14:21-0400 Systolic blood pressure 128 mm[Hg] Honey Adelaida BUSINESS ENTERPRISE OFFICER-AREA COORDINATOR Work Phone: [facility] 11-22-2023 08:48-0400 Body weight 79.83 kg Christopher Reuben DO Work Phone: [facility] 11-22-2023 08:48-0400 Diastolic blood pressure 81 mm[Hg] Christopher Reuben DO Work Phone: [facility] 11-22-2023 08:48-0400 Heart rate 88 /min Christopher Reuben DO Work Phone: [facility] 11-22-2023 08:48-0400 SaO2% (BldA) [Mass fraction] 96 % Christopher Reuben DO Work Phone: [facility] 11-22-2023 08:48-0400 Systolic blood pressure 125 mm[Hg] Christopher Reuben DO Work Phone: [facility] 08-03-2023 08:42-0400 Body height 167.6 cm Krista Gutiérrez BUSINESS ENTERPRISE OFFICER-CLINICAL PROGRAMMER Work Phone: [facility] 08-03-2023 08:42-0400 Body mass index (BMI) [Ratio] 29.09 kg/m2 Krista Gutiérrez BUSINESS ENTERPRISE OFFICER-CLINICAL PROGRAMMER Work Phone: [facility] 08-03-2023 08:42-0400 Body temperature 97.81 [degF] Krista Gutiérrez BUSINESS ENTERPRISE OFFICER-CLINICAL PROGRAMMER Work Phone: [facility] 08-03-2023 08:42-0400 Body weight 81.74 kg Krista Gutiérrez BUSINESS ENTERPRISE OFFICER-CLINICAL PROGRAMMER Work Phone: [facility] 08-03-2023 08:42-0400 Diastolic blood pressure 82 mm[Hg] Krista Gutiérrez BUSINESS ENTERPRISE OFFICER-CLINICAL PROGRAMMER Work Phone: [facility] 08-03-2023 08:42-0400 Heart rate 90 /min Krista Gutiérrez BUSINESS ENTERPRISE OFFICER-CLINICAL PROGRAMMER Work Phone: [facility] 08-03-2023 08:42-0400 SaO2% (BldA) [Mass fraction] 96 % Krista Gutiérrez BUSINESS ENTERPRISE OFFICER-CLINICAL PROGRAMMER Work Phone: [employer] 08-03-2023 08:42-0400 Systolic blood pressure 116 mm[Hg] Krista Gutiérrez BUSINESS ENTERPRISE OFFICER-CLINICAL PROGRAMMER Work Phone: [employer] 04-29-2023 09:40-0500 Body height 165.1 cm Agata James Other [employer] Other 04-29-2023 09:40-0500 Body mass index (BMI) [Ratio] 31.08 kg/m2 Agata James Other [employer] Other 04-29-2023 09:40-0500 Body temperature 97.8 [degF] Agata James Other [employer] Other 04-29-2023 09:40-0500 Body weight 84.73 kg Agata James Other [employer] Other 04-29-2023 09:40-0500 Respiratory rate 18 /min Agata James Other [employer] Other 04-29-2023 09:40-0500 SaO2% (BldA) [Mass fraction] 98 % Agata James Other [employer] Other 09-04-2021 11:30-0400 Body height 165.1 cm Yasmin De La Cruz Other [employer] Other 09-04-2021 11:30-0400 Body mass index (BMI) [Ratio] 30.78 kg/m2 Yasmin De La Cruz Other [employer] Other 09-04-2021 11:30-0400 Body temperature 99.3 [degF] Yasmin De La Cruz Other [employer] Other 09-04-2021 11:30-0400 Body weight 83.92 kg Yasmin De La Cruz Other [employer] Other 09-04-2021 11:30-0400 Respiratory rate 16 /min Yasmin De La Cruz Other [employer] Other 09-04-2021 11:30-0400 SaO2% (BldA) [Mass fraction] 98 % Yasmin De La Cruz Other [employer] Other Encounters Encounter Date Encounter Type Care Provider Facility Start: 09-17-2024 End: 09-17-2024 ambulatory Ryan Armijo DO Work Phone: [facility] Work Phone: Start: 09-17-2024 End: 09-17-2024 Patient encounter procedure Patria [facility] Work Phone: Start: 09-09-2024 End: 09-09-2024 Refill Noelle Alfredo CMA [facility] Start: 08-29-2024 End: 08-29-2024 Office outpatient visit 25 minutes Ryan Armijo DO [facility] Comment on above: Mild major depressio n (Primary Dx); Anxiety; Overweight Start: 08-29-2024 End: 08-29-2024 ambulatory RYAN TODDLANDRY [facility] Start: 07-16-2024 End: 07-16-2024 Refill Ryan Mezang DO Work Phone: [facility] Start: 06-18-2024 End: 06-18-2024 Orders Only Ryan Mezang DO Work Phone: [facility] Start: 06-06-2024 End: 06-06-2024 Bamboo flowsheet Jinny BOONE Work Phone: [facility] [place] Start: 06-06-2024 End: 06-06-2024 Bamboo flowsheet Jinny Yadav PA Work Phone: [facility] [place] Start: 06-06-2024 End: 06-06-2024 ambulatory JINNY YADAV Not Available Start: 06-06-2024 End: 06-06-2024 Office outpatient visit 15 minutes Jinny BOONE Work Phone: [facility] Comment on above: Chronic migraine wit hout aura without status migrainosus, not intractable (CMS/HCC) (Primary Dx); Anxiety Start: 05-20-2024 End: 05-20-2024 Bamboo flowsheet Patria Alexis DO Work Phone: [facility] [place] Start: 05-20-2024 End: 05-20-2024 Bamboo flowsheet Ptaria Alexis DO Work Phone: [facility] [place] Start: 05-20-2024 End: 05-20-2024 Patient encounter procedure Patria Alexis DO Work Phone: [facility] Comment on above: Chronic migraine wit hout aura without status migrainosus, not intractable (CMS/HCC) (Primary Dx) Start: 05-20-2024 End: 05-20-2024 Orders Only Honey Cox BUSINESS ENTERPRISE OFFICER-AREA COORDINATOR Work Phone: [facility] Start: 05-14-2024 End: 05-14-2024 Bamboo flowsheet Jackie BOONE Work Phone: [facility] Start: 05-14-2024 End: 05-16-2024 Bamboo flowsheet Jackie BOONE Work Phone: [facility] Start: 05-14-2024 End: 05-16-2024 Clinisync Result Encounter Jed Nelson DO Work Phone: [facility] Unsolicited Start: 05-14-2024 End: 05-14-2024 Patient encounter procedure aJckie BOONE Work Phone: [facility] Start: 05-14-2024 End: 05-14-2024 Periodic preventive med est patient 40-64yrs Jackie BOONE Work Phone: [facility] Comment on above: Well woman exam with routine gynecological exam; Encounter for screening mammogram for malignant neoplasm of breast Start: 05-14-2024 End: 05-14-2024 ambulatory JACKIE MARTINEZ Not Available Start: 02-20-2024 End: 02-20-2024 Bamboo flowsheet Christopher Reuben DO Work Phone: [facility] [place] [address] [facility] Start: 02-20-2024 End: 02-20-2024 Bamboo flowsheet Christopher Reuben DO Work Phone: [facility] [place] [facility] Start: 02-20-2024 End: 02-20-2024 Patient encounter procedure [facility]ria [facility] Comment on above: Chronic migraine wit hout aura without status migrainosus, not intractable (CMS/HCC) (Primary Dx) Start: 02-20-2024 End: 02-20-2024 ambulatory PATRIA ALEXIS Not Available Start: 01-04-2024 End: 01-04-2024 Office outpatient visit 15 minutes Honey Cox APRN-[facility] Work Phone: [facility] Comment on above: Depressive disorder (Primary Dx); Anxiety; Smoking; Influenza vaccination administered at current visit Start: 01-04-2024 End: 01-04-2024 ambulatory [facility] Start: 11-22-2023 End: 11-22-2023 Bamboo flowsheet Christopher Reuben DO Work Phone: [facility] [place] [facility] Start: 11-22-2023 End: 11-22-2023 Bamboo flowsheet Christopher Reuben DO Work Phone: [facility] [place] [facility] Start: 11-22-2023 End: 11-22-2023 Patient encounter procedure Patria Alexis DO Work Phone: [facility] [address] Comment on above: Chronic migraine wit hout aura without status migrainosus, not intractable (CMS/HCC) (Primary Dx) Start: 11-22-2023 End: 11-22-2023 ambulatory APTRIA ALEXIS Not Available Start: 10-10-2023 End: 10-10-2023 Orders Only Ryan Armijo DO Work Phone: [facility] Start: 09-13-2023 End: 09-14-2023 Refill Krista Gutiérrez BUSINESS ENTERPRISE OFFICER-CLINICAL PROGRAMMER Work Phone: [facility] Start: 09-04-2023 End: 09-04-2023 Refill Krista Gutiérrez BUSINESS ENTERPRISE OFFICER-CLINICAL PROGRAMMER Work Phone: [facility] Family [facility] Start: 08-21-2023 End: 08-21-2023 ambulatory PATRIA ALEXIS Not Available Start: 08-03-2023 End: 08-04-[address] [facility] Start: 08-03-2023 Encounter for genera l adult medical examination without abnormal findings [facility] Start: 08-03-2023 End: 08-03-2023 Patient encounter procedure Krista Gutiérrez BUSINESS ENTERPRISE OFFICER-CLINICAL PROGRAMMER Work Phone: [facility] Work Phone: Start: 08-03-2023 End: 08-03-2023 Periodic preventive med est patient 40-64yrs Kritsa Gutiérrez BUSINESS ENTERPRISE OFFICER-CLINICAL PROGRAMMER Work Phone: [facility] Comment on above: Visit for annual a [facility] examination (Primary Dx); BMI 29.0-29.9,adult; Anxiety; Herpes labialis; Hypertriglyceridemia Start: 07-26-2023 End: 07-26-2023 Refill Krista Gutiérrez BUSINESS ENTERPRISE OFFICER-CLINICAL PROGRAMMER Work Phone: [facility] Start: 06-15-2023 Orders Only Krista Landeros Tremayneroro BUSINESS ENTERPRISE OFFICER-CLINICAL PROGRAMMER Work Phone: [facility] Start: 05-16-2023 Orders Only Krista Gutiérrez BUSINESS ENTERPRISE OFFICER-CLINICAL PROGRAMMER Work Phone: [facility] Start: 04-29-2023 End: 04-29-2023 ambulatory Agata James Other [employer] Other Start: 04-29-2023 Office outpatient vi sit 25 minutes Agata James [facility] Start: 10-29-2021 End: 10-30-2021 Evaluation and management of inpatient DR JED NELSON Facility:[facility] Start: 10-27-2021 Encounter for preprocedural laboratory examination DR JED NELSON [facility] Start: 10-26-2021 End: 10-27-[address] JED NELSON Facility:[facility] Start: 10-26-2021 End: 10-27-2021 Encounter for preprocedural laboratory examination DR JED NELSON Facility:[facility] Start: 10-21-2021 Encounter for other preprocedural examination DR JED NELSON [facility] Start: 10-15-2021 End: 10-16-[address] JED NELSON Facility:[facility] Start: 10-15-2021 End: 10-16-2021 Encounter for other preprocedural examination DR JED NELSON Facility:[facility] Start: 09-04-2021 End: 09-04-2021 ambulatory Yasmin De La Cruz Other [facility] Other Start: 09-04-2021 Office outpatient ne w 30 minutes Yasmin De La Cruz [facility] Start: 08-27-2021 End: 08-28-[address] KRISTA GUTIÉRREZ Facility:[facility] Start: 07-29-2021 End: 07-30-[address] KRISTA GUTIÉRREZ Facility:[facility] Procedures Date Procedure Procedure Detail Performing Clinician Start: 08-29-2024 Adult depression scr eening assessment Ryan Armijo DO Work Phone: Start: 05-14-2024 IGP,APTIMA HPV,AGE GDLN Jed Kato DO Work Phone: Start: 05-14-2024 Microscopic observat ion [Identifier] in Cervix by Cyto stain Jinny BOONE Work Phone: Start: 01-04-2024 Adult depression scr eening assessment Honey Cox BUSINESS ENTERPRISE OFFICER-AREA COORDINATOR Work Phone: Start: 11-24-2023 Mammography Honey Lazoconstantin vargas BUSINESS ENTERPRISE OFFICER-AREA COORDINATOR Work Phone: Start: 12-13-2022 Microscopic observat ion [Identifier] in Cervix by Cyto stain Honey Cox BUSINESS ENTERPRISE OFFICER-AREA COORDINATOR Work Phone: Start: 11-18-2022 Microscopic observat ion [Identifier] in Cervix by Cyto stain Krista Gutiérrez BUSINESS ENTERPRISE OFFICER-CLINICAL PROGRAMMER Work Phone: Start: 10-21-2022 Mammography Krista Gutiérrez BUSINESS ENTERPRISE OFFICER-CLINICAL PROGRAMMER Work Phone: Start: 07-26-2022 Adult depression scr eening assessment Krista Gutiérrez BUSINESS ENTERPRISE OFFICER-CLINICAL PROGRAMMER Work Phone: Start: 10-29-2021 Resection of Uterus, Open Approach DR KRISTA GUTIÉRREZ Start: 04-23-2018 Microscopic observat ion [Identifier] in Cervix by Cyto stain Krista Gutiérrez BUSINESS ENTERPRISE OFFICER-CLINICAL PROGRAMMER Work Phone: Plan of Treatment Date Care Activity Detail Author Start: 05-14-2029 Screening for malign ant neoplasm of cervix Pap Smear [facility] Start: 06-22-2028 DTaP,Tdap and Td Vaccines (2 - Td or Tdap) DTaP,Tdap and Td Vaccines (2 - Td or Tdap) [facility] Start: 12-14-2027 Screening for malign ant neoplasm of cervix [facility] Start: 11-19-2027 Screening for malign ant neoplasm of cervix Pap Smear [facility] Start: 09-01-2025 End: 09-01-2025 Patient encounter procedure 09/01/2025 8:30 AM EDT Office Visit [facility] [address] [place] [address] Ryan Armijo, DO [address] [place] [address] [facility] Start: 08-29-2025 Adult BMI Follow Up Plan Adult BMI Follow Up Plan [facility] Start: 08-29-2025 Adult BMI Screening Adult BMI Screen ing [facility] Start: 08-29-2025 Depression Screening Depression Scre ening [facility] Start: 08-29-2025 Tobacco Screening Tobacco Screening [facility] Start: 05-19-2025 End: 05-19-2025 Patient encounter procedure 05/19/2025 8:30 AM EST Office Visit [facility] [address] [place] [id number] Jed Nelson DO [address] [place] [address] [facility] Start: 05-14-2025 Screening for malign ant neoplasm of cervix [facility] Start: 01-03-2025 Adult BMI Screening Adult BMI Screen ing [facility] Start: 01-03-2025 Depression Screening Depression Scre ening [facility] Start: 11-26-2024 End: 11-26-2024 Patient encounter procedure 11/26/2024 8:20 AM EDT Office Visit [facility] [address] [place] [address] Jinny Yadav PA [address] [place] [address] [facility] Start: 11-23-2024 Screening for malign ant neoplasm of breast Mammogram [facility] Start: 11-18-2024 Influenza vaccination Influenza Vacc ine [facility] Start: 09-02-2024 End: 09-02-2024 Patient encounter procedure 09/02/2024 9:00 AM EDT Procedure Visit [facility] [address] [place] [address] Patria Alexis DO [address] [place] [id number] [facility] Start: 08-08-2024 End: 08-08-2024 Patient encounter procedure 08/08/2024 9:30 AM EDT [facility] [address] [place] [address] Ryan Armijo, DO [address] [place] [address] [facility] Start: 08-02-2024 Adult BMI Follow Up Plan Adult BMI Follow Up Plan [facility] Start: 08-02-2024 Adult BMI Screening Adult BMI Screen ing [facility] Start: 08-02-2024 Tobacco Screening Tobacco Screening [facility] Start: 05-20-2024 End: 05-20-2024 Patient encounter procedure [facility] [place] [address] Comment on above: Arrived Start: 05-14-2024 End: 07-12-2025 MG Breast - bilateral Screening Bilateral screening mammogram Imaging Routine Encounter for screening mammogram for malignant neoplasm of breast Expected: 05/14/2024 (Approximate), Expires: 07/12/2025 [facility] Work Phone: Comment on above: Expected: 05/14/2024 (Approximate), Expires: 07/12/2025 Start: 05-14-2024 End: 05-14-2024 Patient encounter procedure 05/14/2024 9:00 AM EST Office Visit [facility] [address] [place] [id number] Jackie Martinez PA [address] [place] [address] Arrived [facility] Comment on above: Arrived Start: 03-18-2024 End: 03-18-2024 Patient encounter procedure 03/18/2024 3:00 PM EST Office Visit [facility] [address] [place] [id number] Jackie Martinez PA [address] [facility] [place] [address] [place] [address] [facility] Start: 02-20-2024 End: 02-20-2024 Patient encounter procedure [facility] [place] [address] Comment on above: Arrived Start: 2023 End: 2023 Patient encounter procedure 2023 11:00 AM EDT Office Visit [facility] [address] [place] [id number] Jed Nelson DO [address] [place], [place] [id number] [facility] Start: 11-22-2023 End: 11-22-2023 Patient encounter procedure 11/22/2023 9:00 AM EDT Procedure Visit [facility] [place] [address] [place] [address] Patria Alexis, DO [address] [place] [address] Arrived [facility] [address] Comment on above: Arrived Start: 11-19-2023 Influenza vaccination [facility] Start: 10-22-2023 Screening for malign ant neoplasm of breast Mammogram [facility] Start: 08-03-2023 End: 08-03-2023 Patient encounter procedure 08/03/2023 8:40 AM EDT Office Visit [facility] [address] [place] [place] [id number] Krista Gutiérrez, BUSINESS ENTERPRISE OFFICER-CLINICAL PROGRAMMER [address] [place] [address] [facility] Start: 07-27-2023 Adult BMI Screening Adult BMI Screen ing [facility] Start: 07-27-2023 Depression Screening Depression Scre ening [facility] Start: 07-27-2023 Tobacco Screening Tobacco Screening [facility] Start: 04-23-2023 Screening for malign ant neoplasm of cervix Pap Smear [facility] Start: 11-18-2022 Influenza vaccination Influenza Vacc ine [facility] Start: 2008 Screening for malign ant neoplasm of cervix [facility] Start: 12-20-1999 Screening for malign ant neoplasm of cervix Pap Smear [facility] Start: 1996 Adult BMI Follow Up Plan Adult BMI Follow Up Plan [facility] Start: 1978 Screening for malign ant neoplasm of colon [facility] End: 08-02-2024 Comprehensive metabolic 2000 panel - Serum or Plasma Comprehensive metabolic panel Lab Routine Visit for annual health examination 1 Occurrences starting 08/03/2023 until 08/02/2024 [facility] Work Phone: Comment on above: 1 Occurrences starti ng 08/03/2023 until 08/02/2024 End: 08-02-2024 Lipid panel Lipid panel Lab Routine Visit for annual health examination 1 Occurrences starting 08/03/2023 until 08/02/2024 [facility] Comment on above: 1 Occurrences starti ng 08/03/2023 until 08/02/2024 THIN PREP TIS PAP AN D HR HPV DNA THIN PREP TIS PAP AND HR HPV DNA Pathology and Cytology Routine Well woman exam with routine gynecological exam Ordered: 05/14/2024 [facility] Work Phone: Comment on above: Ordered: 05/14/2024 Immunizations Immunization Date Immunization Notes Care Provider Fa [facility] 01-04-2024 influenza, seasonal, injectable, preservative free Honey Cox BUSINESS ENTERPRISE OFFICER-AREA COORDINATOR Work Phone: [facility] 01-04-2024 Immunization, In Clinic,; Translations: [Drug or medicament (substance)] Honey Cox BUSINESS ENTERPRISE OFFICER-AREA COORDINATOR Work Phone: [facility] 01-04-2024 influenza virus vaccine, unspecified formulation Ryan Armijo DO Work Phone: [facility] 06-22-2018 tetanus toxoid, redu jorge diphtheria toxoid, and acellular pertussis vaccine, adsorbed Krista Gutiérrez BUSINESS ENTERPRISE OFFICER-CLINICAL PROGRAMMER Work Phone: [facility] Payers Date Payer Category Payer Blue Cross Blue Shield BCBS [id number] 2021 [place] [facility] - Other ANTHEM [id number] 2021 Unknown [id number]. [id number] 1978 Unknown [id number] 2.16.840.1.793953.3.579. 2.593 1978 Unknown [id number] 2.16.840.1.231480.3.579. 2.593 1978 Unknown [id number] 2.16.840.1.420228.3.579. 2.593 1978 Unknown [id number] 2.16.840.1.149445.3.579. 2.593 1978 Unknown [id number] 2.16.840.1.203848.3.579. 2.593 1978 Unknown [id number] 2.16.840.1.134652.3.579. 2.593 1978 Unknown [id number] 2.16.840.1.896921.3.579. 2.1286 1978 Unknown [id number] 2.16.840.1.791936.3.579. 2.1259 1978 Unknown [id number] 2.16.840.1.986950.3.579. 2.1259 1978 Unknown [id number] 2.16.840.1.635664.3.579. 2.1259 1978 Unknown [id number] 2.16.840.1.194824.3.579. 2.1259 1978 Unknown [id number] 2.16.840.1.848512.3.579. 2.1259 1978 Unknown [id number] 2.16.840.1.268631.3.579. 2.1259 1978 Unknown [id number] 2.16.840.1.831734.3.579. 2.1286 1978 Unknown [id number] 2.16.840.1.689630.3.579. 2.1286 1959 Blue Cross Blue Shield [id number] Social History Date Type Detail Facility Start: 08-18-2023 End: 08-29-2024 Sex Assigned At [facility] Other Start: 08-18-2023 Tobacco smoking status NHIS Smokes tobacco daily [facility] History of tobacco use Cigarette Smoker [facility] Start: 08-18-2023 End: 08-29-2024 Alcoholic beverage intake Current drinker of alcohol (finding) [facility] Start: 08-18-2023 End: 08-29-2024 History of Social function [facility] Start: 08-18-2023 Alcohol Comment socially, rarely [facility] Start: 1980 Sex assigned at Female [facility] Start: 07-28-2022 Gender identity Identifies as female gender (finding) [facility] Start: 07-26-2022 Tobacco smoking status [facility] Ex-smoker [facility] History of tobacco use Current smoker [facility] Start: 07-26-2022 Tobacco use and exposure Smokeless tobacco non-user [facility] Adolescent depressio n screening assessment 0 [facility] Start: 07-28-2022 Sexual orientation Heterosexual (finding) [facility] Start: 10-23-2014 Sex Female (finding) [facility] Has the [employer], [employer], [employer], or water company threatened to shut off services in your home in past 12Mo No [facility] Are you now , , , , never or living with a partner? [facility] How often to you hav e a drink containing alcohol? Monthly or less [facility] How many standard drinks containing alcohol do you have on a typical day? 1 or 2 [facility] How often do you hav e 6 or more drinks on 1 occasion? Never [facility] Do you feel stress - tense, restless, nervous, or anxious, or unable to sleep at night because your mind is troubled all the time - these days [OSQ] To some extent [facility] Work Phone: Functional Status Date Assessment Result Facility 08-29-2024 Humiliation, Afraid, Rape, and Kick questionnaire [HARK] [facility] 08-29-2024 Total score [AUDIT-C] 1 08/30/19 10:46 AM EDT Ryan Armijo, [facility] 08-29-2024 Generalized anxiety disorder 7 item (BETH-7) [facility] Clinical Notes 09-04-2021 to 08-29-2024 Ryan Toddlandry, - 08/29/2024 10:15 AM PAOLO iRggs - 06/06/2024 8:40 AM Elva Alexis DO - 05/20/2024 9:45 AM PAOLO Davila - 05/14/2024 9:00 AM EST Note Date & Type Note Facility 08-29-2024 History of Present illness Narrative Subjective Patient ID: Madai Jones is a 43 y.o. female. Madai presents today for recheck of anxiety and depression. She is doing much better on the medication but still feels there is room for improvement. She wonders what the next dose would be. She did gain some weight when she started the medication. She was not exercising much but now is back into working out 3 days a week. She does [employer] training for an hour. She did cut back on her 2nd job a little bit so that has eased some of her stress. 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 She is also going to counseling at [facility] and that is beneficial. She rarely uses the lorazepam but would like to have it available if needed. She does not need a refill today. It is effective when she takes it. She does not have any side effects. She did have a little dizziness when she 1st started the escitalopram but that has resolved. She has no new problems to report. Depression The following portions of the patient's history were reviewed and updated as appropriate: allergies, current medications, past family history, past medical history, past social history, past surgical history, problem list, and medication reconciliation was completed including current medication and post discharge medication. Review of Systems Objective Physical Exam Vitals reviewed. Constitutional: General: She is not in acute distress. Appearance: Normal appearance. HENT: Head: Normocephalic and atraumatic. Cardiovascular: Rate and Rhythm: Normal rate and regular rhythm. Pulses: Normal pulses. Heart sounds: Normal heart sounds. No murmur heard. Pulmonary: Effort: Pulmonary effort is normal. No respiratory distress. Breath sounds: Normal breath sounds. Neurological: General: No focal deficit present. Mental Status: She is alert and oriented to person, place, and time. Gait: Gait normal. Psychiatric: Attention and Perception: Attention normal. Mood and Affect: Mood and affect normal. Speech: Speech normal. Behavior: Behavior normal. Thought Content: Thought content normal. Cognition and Memory: Cognition normal. Judgment: Judgment normal. Assessment/Plan Madai was seen today for depression. Diagnoses and all orders for this visit: Mild major depression Her depression is improved but still room for improvement. She had a positive response but is still having depression symptoms. We discussed adding on or increase in the medication. She is agreeable to increasing the dose. We will increase Lexapro to 20 mg daily. Anxiety Improved but still with mild anxiety. We will increase Lexapro to 20 mg daily. Overweight She is overweight. She would benefit from weight loss. She did lose weight but then gained some back with the Lexapro. Patient noted to have elevated BMI and the following intervention(s) were applied: encouragement to exercise and prescribed diet education. Other orders - escitalopram (LEXAPRO) 20 mg tablet; Take 1 tablet (20 mg total) by mouth in the morning. documented in this encounter [facility] 06-06-2024 History of Present illness Narrative Images from the original note were not included. Subjective Madai Jones is a 43 y.o. year old female Chief Complaint Patient presents with Migraine Past Medical History: Diagnosis Date Anxiety 08/18/2023 Chronic migraine without aura (CMS/HCC) Hyperlipidemia (CMS/HCC) Past Surgical History: Procedure Laterality Date SECTION, LOW TRANSVERSE 01/16/2017 HYSTERECTOMY 10/2021 Family History Problem Relation Name Age of Onset Migraines Other Social History Tobacco Use Smoking status: Every Day Types: Cigarettes Smokeless tobacco: Not on file Substance Use Topics Alcohol use: Yes Comment: socially, rarely Medication Documentation Review Audit Reviewed by Nicole Andres MA (Dog Raiser) on 06/06/24 at 0854 Medication Order Taking? Sig Documenting Provider Last Dose Status cholecalciferol (Vitamin D-3) 125 MCG (5000 UT) capsule [id number] Take 5,000 Units by mouth Daily Patria Alexis DO Active escitalopram (Lexapro) 10 MG tablet [id number] Take 10 mg by mouth Daily Historical Provider, Active naratriptan (Amerge) 2.5 MG tablet [id number] Take 1 tablet (2.5 mg) by mouth 1 (one) time if needed for migraine May repeat dose (1 tablet) once after 4 hours if migraine persists. No more than 2 doses in 24 hours Patria Alexis DO Active onabotulinumtoxinA (Botox) injection 155 Units [id number] Paty Back, Active ondansetron ODT (Zofran-ODT) 4 MG disintegrating tablet [id number] Take 1 tablet (4 mg) by mouth every 8 (eight) hours if needed for nausea or vomiting Patria Alexis DO Active rosuvastatin (Crestor) 20 MG tablet [id number] Take 20 mg by mouth Daily PAOLO Alvarez Active HPI MIGRAINE -receives botox from Dr. Alexis -last injection was 05/20 next injection is 09/02 -she reports the botox works well for her -states she only has a migraine a few times a month -migraines are not as intense with botox -describes them as more of a headache now than a migraine -located in the right synagogue -duration only is about 1-2 hour -Naratriptan and Excedrin effectively abort -admits light and sound sensitivity -admits nausea, uses zofran -denies any visual changes -sleeping well at night -averages 6 hours -does not wake feeling rested ROS Review of Systems Constitutional: Positive for fatigue. Eyes: Positive for photophobia. Respiratory: Negative. Cardiovascular: Negative. Gastrointestinal: Positive for nausea. Musculoskeletal: Negative. Neurological: Positive for headaches. Objective Visit Vitals BP 112/72 Pulse 88 Resp 16 Ht 5' 6 Wt 171 lb SpO2 96% BMI 27.60 kg/m Smoking Status Every Day BSA 1.9 m Neurological Exam Mental Status Awake, alert and oriented to person, place and time. Recent and remote memory are intact. Speech is normal. Language is fluent with no aphasia. Attention and concentration are normal. Fund of knowledge is appropriate for level of education. Cranial Nerves CN II: Visual acuity is normal. Visual gibbs full to confrontation. CN III, IV, : Extraocular movements intact bilaterally. Normal lids and orbits bilaterally. Pupils equal round and reactive to light bilaterally. CN V: Facial sensation is normal. CN VII: Full and symmetric facial movement. CN VIII: Hearing is normal. CN XI: Shoulder shrug strength is normal. Motor Normal muscle bulk throughout. Normal muscle tone. No abnormal involuntary movements. Sensory Light touch is normal in upper and lower extremities. Gait Casual gait is normal including stance, stride, and arm swing. Motor Examination RUE Strength deltoid, biceps, triceps, wrist extensors, wrist extensors, wrist flexor, puttying and calking supervisor strength 5/5. LUE Strength deltoid, biceps, triceps, wrist extensors, wrist extensors, wrist flexor, puttying and calking supervisor strength 5/5. RLE Strength illopsoas, quadriceps, tibialis anterior, and gastrocnemius strength 5/5. LLE Strength illopsoas, quadriceps, tibialis anterior, and gastrocnemius strength 5/5. Tone Normal tone x4 extremities. Reflexes: RUE biceps reflex 2, brachioradialis reflex 2 LUE biceps reflex 2, brachioradialis reflex 2 RLE knee reflex 2 LLE knee reflex 2 Heart: Regular rate and rhythm Assessment and Plan Diagnoses and all orders for this visit: Chronic migraine without aura without status migrainosus, not intractable (CMS/HCC) It is my impression that the patient has chronic migraines. These started approximately 10 years ago. The patient continues to have an excellent response to Botox injections (she has had over 200 hour monthly reduction in her migraines). She has noticed significant improvement in the frequency, intensity, and duration of her migraines with Botox. Previously, she experienced over 25 migraines per month. Having ~ 2 to 3 headaches per month now which are effectively relieved by Naratriptan and Excedrin. She is overall at baseline. The patient trialed Depakote, Topamax, Calan CR, and gabapentin for migraine prevention in the past without success. - PLAN: - Continue Botox injections every 3 months for migraine prevention per the PREEMPT Trial guidelines - Continue Naratriptan 2.5 mg PO as needed for migraine . Proper use discussed and potential cardiovascular side effects discussed - Avoid triggers - Continue to maintain good Sleep hygiene, adequate hydration, and regular exercise Anxiety History of anxiety. Appears stable and well controlled at this time. Jinny Yadav PA-C documented in this encounter [facility] 05-20-2024 History of Present illness Narrative Images from [...] sterilized with 70% isopropanol alcohol. Lot #: [id number] Exp: 06/2026 Dilution: 2:1 Procedure Procerus 5 units Cable Maintainer, L 5 units Cable Maintainer, R 5 units Frontalis, L 5+5 units [...] migrainosus - G43.719 documented in this encounter [facility] 05-14-2024 History of Present illness Narrative Reason [...] Active Ambulatory Problems Diagnosis Date Noted Migraine (CMS/HCC) 08/18/2023 Headache, migraine (CMS/HCC) 08/18/2023 Headache, migraine, intractable (CMS/HCC) 08/18/2023 Anxiety 08/18/2023 Intractable chronic migraine without aura and without status migrainosus ([facility]/HCC) 08/18/2023 Chronic migraine without aura without status migrainosus, not intractable ([facility]/HCC) 08/18/2023 Resolved Ambulatory Problems Diagnosis Date Noted No Resolved Ambulatory Problems Past Medical History: Diagnosis Date Chronic migraine without aura (CMS/HCC) Hyperlipidemia ([facility]) HISTORY PAST MEDICAL HISTORY SOCIAL HISTORY Past Medical History: Diagnosis Date Anxiety 08/18/2023 Chronic migraine without aura (CMS/HCC) Hyperlipidemia ([facility]) Social History Tobacco Use Smoking status: [...] nursing note reviewed. Exam conducted with a automatic tire tester present. Vitals: There is no height or [...] of: PAOLO Alvarez documented in this encounter [facility] 02-20-2024 History of Present illness Narrative Images [...] sterilized with 70% isopropanol alcohol. Lot #: [id number] Exp: 05/2026 Dilution: 2:1 Procedure Procerus 5 units Cable Maintainer, L 5 units Cable Maintainer, R 5 units Frontalis, L 5+5 units [...] migrainosus - G43.719 documented in this encounter [facility] 01-04-2024 History of Present illness Narrative [address] [place] [address] Patient: Madai Jones Date of : 1980 [...] worry. 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 Lot #: [id number] Exp: 08/2025 Dilution: 2:1 Procedure Procerus 5 units Cable Maintainer, L 5 units Cable Maintainer, R 5 units Frontalis, L 5+5 units [...] migrainosus - G43.719 documented in this encounter [facility] 08-03-2023 History of Present illness Narrative Subjective [...] Adame 08/03/23 0922 documented in this encounter [facility] 04-29-2023 Evaluation note Encounter Date Diagnosis [...] treatment plan. Patient left in stable condition. [facility] Other 08-12-2022 NoteDISCHARGE SUMMARY DISCHARGE DATE: 10/30/2021 [...] pain free and no longer on narcotics.[id number] NoteOPERATIVE NOTE OPERATION DATE: 10/29/2021 PROCEDURE: Total abdominal hysterectomy with cystoscopy. PREOPERATIVE DIAGNOSIS: Menorrhagia, dysmenorrhea, dyspareunia. POSTOPERATIVE DIAGNOSIS: Menorrhagia, dysmenorrhea, dyspareunia. ANESTHESIA: General. SURGEON: Jed Nelson D.O. LABORATORY TECHNOLOGIST: HAMLET Lowery URINE OUTPUT: Yellow and clear. [...] with good visualization of the bladder. An O'Dhkmlpfz-T-Vookyw retractor was placed into the patient's abdomen. [...] the Recovery Room in stable condition. ??[id number] Evaluation note* Encounter Date Diagnosis Assessment Notes Treatment Notes Treatment Clinical Notes Aug, Cough (ICD-10 - R05.9) Aug, COVID-19 (ICD-10 - U07.1) Today you tested positive for the COVID virus. This mean you need to follow all CDC quarantine guidelines found at [email or web address] v. It is important to rest, increase [...] care provider if no improvement of symptoms [facility] Other Evaluation note* Diagnosis Chronic migraine without [...] Hypertriglyceridemia Pure hyperglyceridemia [facility] Diagnosis Depressive disorder- Primary Depressive disorder, not elsewhere classified Anxiety Anxiety state, unspecified Smoking Tobacco use disorder Influenza vaccination administered at current visit documented [facility] Diagnosis Well woman exam with routine gynecological exam Routine gynecological examination Encounter for screening mammogram for malignant neoplasm of breast [facility] Diagnosis Chronic migraine without aura without status migrainosus, not intractable (CMS/HCC)- Primary Anxiety Anxiety state, unspecified documented [facility]* Diagnosis Mild major depression- Primary Major depressive disorder, single episode, mild Anxiety Anxiety state, unspecified Overweight [facility] note[facility] assessment information available [facility] Work Phone: History general Narrative - Reported* Type Description Date Medical History Migraines Surgical History x3 Hospitalization History See past surgical hx [facility] Other [facility] general Narrative - Reported* Type Description Date Medical History Migraines Surgical History x3 Surgical History hysterectomy 2021 Hospitalization History See past surgical hx [facility] Other InstructionsNot on filedocumented in this encounter [facility]ructionsNot on filedocumented in this encounter [facility]ructionsNot on filedocumented in this encounter [facility] SystemInstructionsNot on filedocumented in this encounter [facility] System[facility]ructionsNot on filedocumented in this encounter [facility] SystemInstructionsNot on filedocumented in this encounter [facility]* Attachments The following attachments cannot be sent through Care Everywhere. * Sertraline, ADULT (Scottish) documented in this encounterPro[facility] SystemInstructionsNot on file documented in this encounterProMedica Health SystemReason for referral (narrative)No reason for referral information available[facility] Work Phone: Summary Purpose Family History No Family History Records FoundNo Family History Records FoundNo Family History Records FoundNo Family History Records FoundNo Family History Records Found Advance Directives Advance Directive Response Recorded Date/ Time Advance Directives No August 19 9:34am Reason for Referral Specialty Diagnoses / Procedures Referred By Naresh craven Referred To Contact Diagnoses Henrry Gutiérrez, Krista Landeros, BUSINESS ENTERPRISE OFFICER-CLINICAL PROGRAMMER [address] [place] [address] Referral ID Status Reason Start Date Expiration Date V isits Requested Visits Authorized [id number] Authorized 07/04/2023 08/02/2024 1 1 Additional Source Comments REASON FOR VISIT (unrecogniz ed section and content) Reason Comments Med Refill Reason Comments Annual Exam Reason Comments Anxiety Depression Reason Comments Well Women Visit Reason Comments Migraine Reason Comments Depression Reason Onset Date Comments Med Refill 09/09/2024 INFORMATION SOURCE (unrecogn ized section and content) DATE CREATED AUTHOR 10/05/2021 [facility] DATE CREATED AUTHOR AUTHOR'S ORGANIZ ATION [facility] DATE CREATED AUTHOR AUTHOR'S ORGANIZ ATION 08/06/2023 [facility] DATE CREATED AUTHOR AUTHOR'S ORGANIZ ATION 06/08/2024 [facility] [facility] DATE CREATED AUTHOR AUTHOR'S ORGANIZ ATION 08/31/2024 [facility] Care Teams (unrecognized sec tion and content) Dryerman/Woman Relationship Specialty Start Date End Date Ryan Armijo MD [address] [place] [address] PCP - General Family Medicine 12/13/22 Dryerman/Woman Relationship Specialty Start Date End Date Ryan Armijo MD [address] [place] [address] PCP - General Family Medicine 12/13/22 Dryerman/Woman Relationship Specialty Start Date End Date Ryan Armijo MD [address] [place] [address] PCP - General Family Medicine 12/13/22 Dryerman/Woman Relationship Specialty Start Date End Date Ryan Armijo MD [address] [place] [address] PCP - General Family Medicine 12/13/22 Dryerman/Woman Relationship Specialty Start Date End Date Ryan Armijo DO [address] [place] [address] PCP - General Family Medicine 01/18/22 Dryerman/Woman Relationship Specialty Start Date End Date Ryan Armijo DO [address] [place] [address] PCP - General Family Medicine 01/18/22 Dryerman/Woman Relationship Specialty Start Date End Date Aleksander Ryan Violeta [address], [place] [address] PCP - General Family Medicine 01/18/22 Dryerman/Woman Relationship Specialty Start Date End Date Aleksander Ryan Mcdaniel [address], [place] [address] PCP - General Family Medicine 01/18/22 Dryerman/Woman Relationship Specialty Start Date End Date Ryan Armijo DO [address], [place] [address] PCP - General Family Medicine 01/18/22 Dryerman/Woman Relationship Specialty Start Date End Date Ryan Armijo DO [address], [place] [address] PCP - General Family Medicine 01/18/22 Dryerman/Woman Relationship Specialty Start Date End Date Ryan Armijo DO [address], [place] [address] PCP - General Family Medicine 01/18/22 Dryerman/Woman Relationship Specialty Start Date End Date Ryan Armijo MD [address], [place] [address] PCP - General Family Medicine 12/13/22 Dryerman/Woman Relationship Specialty Start Date End Date Ryan Armijo MD [address], [place] [address] PCP - General Family Medicine 12/13/22 Dryerman/Woman Relationship Specialty Start Date End Date Ryan Armijo MD [address], [place] [address] PCP - General Family Medicine 12/13/22 Dryerman/Woman Relationship Specialty Start Date End Date Ryan Armijo MD [address], [place] [address] PCP - General Family Medicine 06/06/24 Jinny Yadav PA [address] [place] [address] Physician Noc Engineer Neurology 06/06/24 Dryerman/Woman Relationship Specialty Start Date End Date Ryan Armijo MD [address], [place] [address] PCP - General Family Medicine 06/06/24 Jinny Yadav PA [address] [place] [address] Physician Noc Engineer Neurology 06/06/24 Dryerman/Woman Relationship Specialty Start Date End Date Ryan Armijo DO [address], [place] [address] PCP - General Family Medicine 01/18/22 Dryerman/Woman Relationship Specialty Start Date End Date Ryan Armijo DO [address] [place] [address] PCP - General Family Medicine 01/18/22 Team Status: Active Member Role Status Dates Ryan Armijo DO Primary Care Provider Active Team Status: Inactive Member Role Status Dates Patria Alexis DO Attending Provider Active Start: September 17, 2024 End: September 17, 2024 Ryan Armijo DO Primary Care Provider Active Start: September 17, 2024 End: September 17, 2024 Goals (unrecognized section and content) Goals may be documented in a n alternate section FOR RECORDS PERTAINING TO PATIENTS WHO ARE [...] BE BASED ON THE PRIMARY CLINICAL RECORDS. [employer] provides no warranty or guarantee of the accuracy or completeness of information in this document.
[2024-11-12 16:58] LABS: Mono Screen NEGATIVE (NEGATIVE)
[2024-11-12 17:11] LABS: TSH W/ REFLEX FT4 0.659 uIU/mL (0.358-3.740)
--- NOTE | 2024-11-12 17:12 | ED.GENADUL1 ---
HPI HPI - General Adult General Chief complaint: Neck Pain/Injury Stated complaint: LUMP ON LEFT SIDE OF NECK Time Seen by Provider: 11/12/24 15:33 Source: patient Mode of arrival: walk-in Limitations: no limitations History of Present Illness HPI narrative: 43-year-old female presents here with a chief complaint of a swelling to the left neck region. Patient states she developed 2 days ago she developed swelling and developed soreness to the outside of her neck region. 2 x 3 cm area of freely mobile mass noted to the left thyroid region. There is no lymphadenopathy involved initially. Patient denies any recent illnesses denies any weight loss or weight gain. She states she is generally healthy. Related Data Allergies Allergy/AdvReac Type Severity Reaction Status Date / Time No Known Drug Allergies Allergy Verified 11/12/24 15:36 Opioid HPI Opioid Management Most Recent Opioid Data: Last Pain Scale 2 Today, 16:12 Last MAR Pain Assessment Today, 16:12 Review of Systems ROS Status of ROS 10 or more systems reviewed and unremarkable except as noted in history and below PFSH PFSH Social History Little interest or pleasure in doing things: not at all Feeling down, depressed, or hopeless: not at all Exam Narrative Exam Narrative: All Systems are negative except as noted/marked.All systems reviewed and otherwise negative Nurses note and vital signs reviewed and patient is not hypoxic. General: The patient appears well and in no apparent distress. Patient is resting comfortably on cart. Skin: Warm, dry, no pallor noted. There is no rash noted. Head: Normocephalic, atraumatic neck: supple, freely mobile mass to left thyroid region, no cervical lymphadenopathy noted Eye: Normal conjunctiva, no drainage, EOMI. PERRL Ears, Nose, Mouth, and Throat: oral mucosa is moist. Nares patent. Mouth without vesicles. Ear canals patent. Tm's without Erythema Cardiovascular: Regular Rate and Rhythm Respiratory: Patient is in no distress, no accessory muscle use, lungs are clear to auscultation, no wheezing, rales or rhonchi Musculoskeletal: The patient has no evidence of calf tenderness, no pitting edema, symmetrical pulses noted bilaterally Neurological: A&O x4, normal speech Psychiatric: Cooperative Constitutional Vital Signs, click to edit/add: Last Vital Signs Temp 98.1 F 11/12/24 15:36 Pulse 94 H 11/12/24 15:36 Resp 16 11/12/24 15:36 BP 135/97 H 11/12/24 15:36 Pulse Ox 97 11/12/24 16:18 O2 Del Method Room Air 11/12/24 16:18 Course Vital Signs Vital signs: Vital Signs Temperature 98.1 F 11/12/24 15:36 Pulse Rate 94 H 11/12/24 15:36 Respiratory Rate 16 11/12/24 15:36 Blood Pressure 135/97 H 11/12/24 15:36 Pulse Oximetry 97 11/12/24 15:36 Temperature 98.1 F 11/12/24 15:36 Pulse Rate 94 H 11/12/24 15:36 Respiratory Rate 16 11/12/24 15:36 Blood Pressure 135/97 H 11/12/24 15:36 Pulse Oximetry 97 11/12/24 16:18 Oxygen Delivery Method Room Air 11/12/24 16:18 Medical Decision Making MDM Narrative Medical decision making narrative: 43-year-old female presents here with a chief complaint of a swelling to the left neck region. Patient states she developed 2 days ago she developed swelling and developed soreness to the outside of her neck region. 2 x 3 cm area of freely mobile mass noted to the left thyroid region. There is no lymphadenopathy involved initially. Patient denies any recent illnesses denies any weight loss or weight gain. She states she is generally healthy. Healthy 43-year-old female was brought to the emergency room chief complaint of a notable area of swelling to the left lateral neck area. Patient has a small freely mobile mass noted to the left thyroid gland. CT scan confirmed. CT scan read by radiology suggest ultrasound of the thyroid. Lab work reviewed CBC CMP reviewed. TSH is also within normal limits. I explained the results to the patient. She verbalized understanding agrees with plan of care. Patient just to follow-up with ENT specialist, she is given an outpatient ultrasound order to have done of her thyroid for further studies as suggested. Differential Diagnosis Differential Diagnosis: thyroid mass, strep, mono, cervical lymphadenopathy Medical Records Medical records reviewed: Yes I reviewed the patient's medical records Lab Data Lab results reviewed: Yes I reviewed the patient's lab results Labs: Lab Results 11/12/24 Range/Units 16:07 WBC 7.4 (4.0-11.0) 10^3/uL RBC 4.60 (4.20-5.40) 10^6/uL Hgb 14.8 (12.0-16.0) g/dL Hct 42.0 (36.0-48.0) % MCV 91.3 (81.0-99.0) fL MCH 32.2 (26.7-34.0) pg MCHC 35.2 (29.9-35.2) g/dL RDW 11.9 (11.0-15.0) % Plt Count 191 (150-450) 10^3/uL MPV 11.5 (9.5-13.5) fL Neut % (Auto) 55.9 (43.0-75.0) % Lymph % (Auto) 35.2 (20.5-60.0) % [place] % (Auto) 8.2 (1.7-12.0) % Eos % (Auto) 0.5 L (0.9-7.0) % Baso % (Auto) 0.1 L (0.2-2.0) % Neut # (Auto) 4.2 (1.4-6.5) 10^3/uL Lymph # (Auto) 2.6 (1.2-3.8) 10^3/uL [place] # (Auto) 0.6 (0.3-0.8) 10^3/uL Eos # (Auto) 0.0 (0.0-0.7) 10^3/uL Baso # (Auto) 0.0 (0.0-0.1) 10^3/uL Abs Immat Gran (auto) 0.01 (0.00-0.03) 10^3/uL Imm/Tot Granulo (auto) 0.1 (0.0-0.5) % Sodium 140 (136-145) mmol/L Potassium 4.2 (3.5-5.1) mmol/L Chloride 104 (98-107) mmol/L Carbon Dioxide 28.6 (21.0-32.0) mmol/L Anion Gap 11.6 BUN 11.0 (7.0-18.0) mg/dL Creatinine 0.90 (0.55-1.02) mg/dL Est GFR ( Amer) >60 (>=60 mL/min/1.73m^2) Est GFR (Non-Af Amer) >60 (>=60 mL/min/1.73m^2) BUN/Creatinine Ratio 12.2 Glucose 112 H (74-106) mg/dL Calcium 9.9 (8.5-10.1) mg/dL Total Bilirubin 0.4 (0.2-1.0) mg/dL AST 43 H (15-37) U/L ALT 61 H (14-59) U/L Alkaline Phosphatase 102 (46-116) U/L Total Protein 8.5 H (6.4-8.2) g/dL Albumin 3.9 (3.4-5.0) g/dL Globulin 4.6 g/dL Albumin/Globulin Ratio 0.8 TSH & Free T4 Interp 0.659 (0.358-3.740) uIU/mL Monoscreen Negative (NEGATIVE) Streptococcus Screen Negative Imaging Data neck: Radiologist's impression: ITS Impressions Soft Tissue Neck CT 11/12/24 16:30 IMPRESSION: There is a 2 x 1 cm hypoattenuating nodule within the left thyroid lobe. Malignancy is not excluded. Ultrasound follow-up is recommended on a nonemergent basis. No mass or abnormal enhancement is noted otherwise. Impression dictated by: Devan Coats M.D. 11/12/2024 4:46 PM Dictation Location: [place] [address] Electronically authenticated by: [id number] Y Date: 11/12/2024 16:46 Discharge Plan Discharge Chief Complaint: Neck Pain/Injury Clinical Impression: Mass of thyroid gland Patient Disposition: Home, Self-Care Time of Disposition Decision: 17:16 Condition: Good Print Language: [place] Instructions: Thyroid Nodules (ED) Additional Instructions: ENT [facility] [address] [facility] [phone] Referrals: ROME RAZA [Primary Care Provider, Family Practice] - 1 week DEB CLARK DO [Physician, Ear, Nose, Throat] - 1 week
== END 2024-11-12 17:31 | disposition home or self-care (01) ==
PROVIDERS: Physician Assistant; Emergency Provider Student in an Organized Health Care Education/Training Program; PCP Family Medicine
DX: E04.1 Nontoxic single thyroid nodule (principal)
CPT/HCPCS: 36415; 70491; 80053; 84443; 85025; 86308; 87070; 87880; 96374; 96375; 99285; J1100; J1885; Q9967